=== PATIENT | female | born 1960 | race Caucasian/White ===

== ENCOUNTER → 2022-05-24 11:39 | Outpatient (CLI) | payer MEDICAID, SELFPAY ==
[2022-05-24 12:46] LABS: Basophils # 0.1 K/mm3 (0-0.2); Basophils % 1.2 % (0.1-2.0); Eosinophils # 0.2 K/mm3 (0.0-0.4); Eosinophils % 4.2 % (0.1-12.0); Hematocrit 48.1 % (37.0-47.0); Hemoglobin 15.4 g/dL (12.2-16.2); Lymphocytes # 1.6 K/mm3 (0.7-4.5); Lymphocytes % 30.8 % (10-50); Mean Corpuscular Hemoglobin 29.9 pg (27.0-31.2); Mean Corpuscular Volume 93.5 fl (81-99); Mean Platelet Volume 8.4 fl (7.4-10.4); Monocytes # 0.3 K/mm3 (0.1-1.0); Monocytes % 5.5 % (1.7-9.3); Neutrophils # 3.1 K/mm3 (1.8-7.8); Neutrophils % 58.3 % (37.0-80.0); Platelet Count 279 K/mm3 (142-424); Red Blood Count 5.14 M/mm3 (4.20-5.40); Red Cell Distribution Width 12.9 % (11.5-17.5); White Blood Count 5.3 K/mm3 (4.8-10.8)
[2022-05-24 13:34] LABS: Alanine Aminotransferase 24 U/L (12-78); Albumin Level 4.3 g/dl (3.5-5.0); Albumin/Globulin Ratio 1.7 (1.1-1.8); Alkaline Phosphatase 105 U/L (38-126); Anion Gap 11.2 mEq/L (5-15); Aspartate Amino Transferase 32 U/L (14-36); Bilirubin,Total 0.9 mg/dl (0.2-1.3); Blood Urea Nitrogen 14 mg/dl (7-17); Calcium 8.9 mg/dl (8.4-10.2); Carbon Dioxide 29 mmol/L (22.0-30.0); Chloride 103 mmol/L (98-107); Chol/HDL Ratio 4.6 (1-3.5); Cholesterol 223 mg/dl (140-200); Estimated Glomerular Filt Rate 85 ml/min (>60); GFR (African American) 102 ML/MIN (>60); Globulin 2.6 g/dL (1.3-3.2); Glucose 98 mg/dl (74-100); HDL Cholesterol 49 mg/dl (40-60); Potassium 4.2 mmoL/L (3.5-5.1); Sodium 139 mmol/L (136-145); Total Protein,Serum 6.9 g/dl (6.3-8.2); Triglycerides 149 mg/dl (30-150); VLDL Cholesterol 30 mg/dL (0-40)
[2022-05-24 13:52] LABS: 25-OH Vitamin D, Total 17.6 ng/mL (30-100)
[2022-05-24 14:06] LABS: Thyroid Stimulating Hormone 2.23 uIU/mL (0.465-4.68)
== END ==
PROVIDERS: PCP Physician Assistant; Visit Provider Physician Assistant
DX: Z00.00 Encounter for general adult medical examination without abnormal findings (principal); E55.9 Vitamin D deficiency, unspecified; R07.89 Other chest pain; R06.09 Other forms of dyspnea; Z79.899 Other long term (current) drug therapy
CPT/HCPCS: 36415; 80053; 80061; 82306; 84443; 85025; 93225; 93226

== ENCOUNTER → 2022-06-06 09:39 | Outpatient (CLI) | payer MEDICAID, SELFPAY | PROVIDERS: PCP Physician Assistant; Visit Provider Nurse Practitioner Family | DX: R00.2 Palpitations (principal); I48.0 Paroxysmal atrial fibrillation; R06.83 Snoring | CPT/HCPCS: 93270 ==

== ENCOUNTER → 2022-06-13 09:24 | Outpatient (CLI) | payer MEDICAID, SELFPAY | PROVIDERS: PCP Physician Assistant; Visit Provider Physician Assistant | DX: G47.33 Obstructive sleep apnea (adult) (pediatric) (principal); R06.83 Snoring | CPT/HCPCS: G0399 ==

== ENCOUNTER → 2022-06-14 08:41 | Outpatient (CLI) | payer MEDICAID, SELFPAY | PROVIDERS: PCP Physician Assistant; Visit Provider Nurse Practitioner Family | DX: R06.00 Dyspnea, unspecified (principal); R07.89 Other chest pain | CPT/HCPCS: 93306 ==

== ENCOUNTER → 2022-06-20 10:39 | Outpatient (CLI) | payer MEDICAID, SELFPAY ==
--- NOTE | 2022-06-20 10:42 | XR_ITS ---
FINAL REPORT CLINICAL HISTORY: Shortness of breath and chest pain COMPARISON: None FINDINGS: Two views of the chest were obtained. The heart size and pulmonary vascularity are within normal limits. The mediastinum is normal. No acute pulmonary abnormality is identified. There is no pneumothorax. There is a moderate hiatal hernia. The bony thorax is intact. IMPRESSION: No acute cardiopulmonary process. Moderate hiatal hernia. Reviewed, Interpreted and Dictated by Jaswant Gomez III, MD Transcribed by Nancy Sunshine Authenticated and . [facility]
== END ==
PROVIDERS: PCP Physician Assistant; Visit Provider Physician Assistant
DX: R06.09 Other forms of dyspnea (principal); R07.89 Other chest pain; R00.2 Palpitations; I48.0 Paroxysmal atrial fibrillation; R53.83 Other fatigue; Z87.19 Personal history of other diseases of the digestive system
CPT/HCPCS: 71046

== ENCOUNTER → 2022-06-23 07:44 | Outpatient (CLI) | payer MEDICAID, SELFPAY ==
--- NOTE | 2022-06-23 07:45 | MR_ITS ---
PROCEDURE INFORMATION: Exam: MR Head Without Contrast Exam date and time: 06/23/2022 7:50 AM Age: 61 years old Clinical indication: Weakness, facial; Additional info: Facial droop TECHNIQUE: Imaging protocol: Magnetic resonance imaging of the head without contrast. COMPARISON: No relevant prior studies available. FINDINGS: Brain: There are just a few miniscule T2/FLAIR hyperintense white matter lesions which are nonspecific, but are often the sequela of chronic small vessel ischemic disease. No evidence of an acute infarct. Cerebral ventricles: Normal. No ventriculomegaly. Pituitary gland and sella: Mostly empty CSF filled sella. Bones/joints: Unremarkable. Paranasal sinuses: Normal as visualized. No acute sinusitis. Mastoid air cells: Normal as visualized. No mastoid effusion. Orbital cavities: Unremarkable. Soft tissues: Unremarkable. IMPRESSION: No evidence of an acute intracranial process. Otherwise, as above.
== END ==
PROVIDERS: PCP Physician Assistant; Visit Provider Physician Assistant
DX: R29.810 Facial weakness (principal)
CPT/HCPCS: 70551

== ENCOUNTER → 2022-07-25 06:31 | Outpatient (CLI) | payer MEDICAID, SELFPAY ==
--- NOTE | 2022-07-25 06:32 | NM_ITS ---
APPROVED REPORT Exam: Nuclear Stress Test Indication: chest pain..soa..palpitations..fatigue Patient Location: Outpatient Stress Tech: Vesta Diaz OR Tech:Thelma Tarango ARRShea RT(R)(N) Ht: 4 ft 10 in Wt: 193 lbs Bra Size: 40dd HR: 72 bpm BP: 120/81 mmHg BSA: 1.79 m2 TID: 0.96 BMI: 40.3 History: chest pain, dyspnea, palpitations, fatigue Procedure: Patient exercised on [place] protocol 5:40 minutes and sec, resting heart rate 72 bpm, resting blood pressure 120/81 mmHg, with exercise maximum heart rate achived was 133 bpm which is 85 % of the maximum predicted heart rate and blood pressure was 145/76 mmHg. Test was stopped due to soa. Patient denied any complaint of chest pain. Patient has average exercise capacity, achieved 7.0 METs of workload on treadmill, the blood pressure response to exercise was adequate. Cardiac Stress and Resting SPECT Images: Cardiac Stress and Resting SPECT images were obtained using technetium 99m Myoview 32.9 mCi stress and 10.67 mCi at rest. Resting and stress images demonstrate a medium-sized, moderate, predominantly reversible perfusion defect anteriorly from the mid-LV wall towards the apex. Gated images demonstrate normal LV global and regional systolic function. LVEF is calculated at 68%. Conclusion: Medium-sized, moderate, predominantly reversible perfusion defect anteriorly from the mid-LV wall towards the apex. Findings are consistent with reversible ischemia. Gated images demonstrate normal LV global and regional systolic function. LVEF is calculated at 68%. Electronically signed by : Radha Zamorano, 07/25/2022 17:21:21
--- NOTE | 2022-07-25 06:32 | CA_ITS ---
APPROVED REPORT Exam: Exercise Treadmill Technologist: Vesta Soto, Ht: 4 ft 10 in Wt: 194 lbs BSA: 1.80 m2 HR: 68 bpm BP: 123/81 mmHg Medical History Medications: XaRELTO,,,,, Toprol XL,,,,, Vitamin D2, D3,,,,, Stress Test Details Test: [place] HR Resting HR: 72 bpm Max Heart Rate (APMHR): 157 bpm Max HR Achieved: 133 bpm Target HR (85% APMHR): 133 bpm % of APMHR: 85 Recovery HR: 83 bpm BP Resting BP: 120.0/81.0 mmHg Max BP: 145.0/76.0 mmHg Recovery BP: 110.0/71.0 mmHg ECG Resting ECG: NSR, ST-T abns inferiorly & laterally Clinical Exercise duration: 05:40 min Highest Stage Achieved: II Exercise capacity: 7.0 METs Stress ECG Conclusion Walked 5:40 on [place] Protocol Max HR: 133 % of PM: 85% Max BP: 145/76 METs: 7.0 Test stopped due to: SOA, Fatigue Symptoms: No CP. Arrhythmias/Ectopy: Rate PAC (not captured) ST-T Changes: 0.[address] depression. Conclusion: Baseline ECG T-wave changes in the inferolateral leads. Average functional capacity for age and sex. Adequate BP response to exercise. At peak stress, there was a 0.5mm horizontal depression in inferolateral leads. Findings are non-diagnostic in the setting of baseline ECG abnormalities. Myoview images reported separately. Test Summary REST . . . . . . . Sitting REST . . . . . . . Standing REST 05:03 0.0 0.0 72 . 120/ 81 . . Stage 1 01:00 10.0 1.7 99 . . . . Stage 1 02:00 10.0 1.7 108 . . . . Stage 1 03:00 10.0 1.7 111 . . . . Stage 2 01:00 12.0 2.5 119 . . . . Stage 2 02:00 12.0 2.5 130 . . . . Stage 2 02:40 12.0 2.5 132 . . . Stop exercise at 05:40 RECOVERY 01:00 0.0 0.0 107 . . . . RECOVERY 02:00 0.0 0.0 88 . . . . RECOVERY 03:00 0.0 0.0 83 . 145/ 76 . . RECOVERY 04:00 0.0 0.0 85 . 115/ 71 . . RECOVERY 05:00 0.0 0.0 82 . 106/ 71 . . RECOVERY 06:00 0.0 0.0 80 . 110/ 71 . . RECOVERY 06:07 0.0 0.0 79 . 110/ 71 . . Electronically signed by : Radha Zamorano, 07/25/2022 17:11:11
== END ==
PROVIDERS: PCP Physician Assistant; Visit Provider Physician Assistant
DX: R06.09 Other forms of dyspnea (principal); R07.89 Other chest pain; R00.2 Palpitations; I48.0 Paroxysmal atrial fibrillation; R53.83 Other fatigue
CPT/HCPCS: 78452; 93017; A9502

== ENCOUNTER 2022-08-08 08:42 | Day surgery (SDC) | payer MEDICAID, SELFPAY ==
[2022-08-08] VITALS (11 sets, daily range): BP systolic 94–127; BP diastolic 55–87; PULSE 54–83; RESP 15–20; O2SAT 90–100; BMI 40.7
--- NOTE | 2022-08-08 07:15 | IR_ITS ---
APPROVED REPORT Patient Location: Outpatient PROCEDURES Left heart catheterization Left ventriculogram Selective coronary angiogram INDICATION Angina pectoris, Abnormal Myoview Informed consent was obtained prior to the procedure. COMPLICATIONS None Estimated Blood Loss: Less than 10 mls TECHNIQUE One percent lidocaine used to anesthetize the right anterior aspect of the wrist. The right radial artery was accessed via the Seldinger technique. A 6 Algerian sheath was placed in the right radial artery. 150 mg magnesium sulfate, 800 mcg of nitroglycerin, 1mg Lidocaine and 5000 U Heparin were given through the arterial sheath. The papa catheter was also used to perform left heart catheterization, left ventriculogram and selective coronary angiogram. At the end of the procedure the sheath was removed good hemostasis was achieved using Traclet band, patient was transferred to the postop holding area in stable condition. ANGIOGRAPHIC RESULTS The left main artery Normal The left anterior descending artery Normal The circumflex artery Normal The right coronary artery Dominant normal The SCHMIDT ventriculogram reveals Normal 65% The left ventricular end-diastolic pressure 10 mmHg IMPRESSION Normal coronary arteries Normal ejection fraction Normal LVEDP PLAN 1. Evaluation of noncardiac symptoms Electronically signed by : Jerson Toussaint MD 08/08/2022 10:53:33
[2022-08-08 09:14] LABS: Basophils % 0.6 % (0.1-2.0); Eosinophils # 0.3 K/mm3 (0.0-0.4); Eosinophils % 4.9 % (0.1-12.0); Hemoglobin 14.4 g/dL (12.2-16.2); Lymphocytes % 37.3 % (10-50); Mean Corpuscular HGB Conc 32.1 g/dL (31.8-35.4); Mean Corpuscular Hemoglobin 30.2 pg (27.0-31.2); Mean Corpuscular Volume 94.1 fl (81-99); Mean Platelet Volume 8.8 fl (7.4-10.4); Monocytes # 0.3 K/mm3 (0.1-1.0); Neutrophils # 2.7 K/mm3 (1.8-7.8); Neutrophils % 51.2 % (37.0-80.0); Platelet Count 239 K/mm3 (142-424); Red Blood Count 4.78 M/mm3 (4.20-5.40); White Blood Count 5.3 K/mm3 (4.8-10.8)
[2022-08-08 09:28] LABS: Anion Gap 9.7 mEq/L (5-15); Blood Urea Nitrogen 14 mg/dl (7-17); Calcium 8.6 mg/dl (8.4-10.2); Carbon Dioxide 30 mmol/L (22.0-30.0); Chloride 106 mmol/L (98-107); Creatinine Clearance Estimated 80 mL/min (50-200); Estimated Glomerular Filt Rate 85 ml/min (>60); GFR (African American) 102 ML/MIN (>60); Glucose 101 mg/dl (74-100); Potassium 3.7 mmoL/L (3.5-5.1); Sodium 142 mmol/L (136-145)
== END 2022-08-08 13:52 | disposition home or self-care (01) ==
PROVIDERS: PCP Physician Assistant; Visit Provider Internal Medicine
DX: I20.8 Other forms of angina pectoris (principal); Z87.891 Personal history of nicotine dependence; I48.0 Paroxysmal atrial fibrillation; R06.02 Shortness of breath
CPT/HCPCS: 80048; 85025; 93458; 99152; C1725; C1769; J1644; Q9967

== ENCOUNTER → 2022-08-20 10:59 | Outpatient (CLI) | payer MEDICAID, SELFPAY ==
--- NOTE | 2022-08-20 11:01 | CA_ITS ---
FINAL REPORT TECHNIQUE: Limited ultrasound imaging of the right wrist was obtained. CLINICAL HISTORY: PT HAD CATH WITH RT WRIST ACCESS ON 08/08/22. KNOT AND PAIN AT SITE RT WRIST FINDINGS: Radial artery is patent. There is no evidence of pseudoaneurysm, av fistula or thrombus. IMPRESSION: Unremarkable exam. Reviewed, Interpreted and Dictated by Jaswant Gomez III, MD Transcribed by Lizeth Lackey Authenticated and [facility]
== END ==
PROVIDERS: PCP Physician Assistant; Visit Provider Physician Assistant
DX: R06.09 Other forms of dyspnea (principal); I48.0 Paroxysmal atrial fibrillation; R00.2 Palpitations; R53.83 Other fatigue; R60.9 Edema, unspecified; Z87.19 Personal history of other diseases of the digestive system
CPT/HCPCS: 93931

== ENCOUNTER 2022-10-08 09:42 | Emergency (ER) | payer MEDICAID, SELFPAY ==
--- NOTE | 2022-10-08 09:53 | XR_ITS ---
FINAL REPORT CLINICAL HISTORY: fall FINDINGS: RIGHT WRIST Three views demonstrate no acute fracture or dislocation. The visualized joint spaces are normally aligned. The soft tissues are unremarkable. IMPRESSION: No acute bony abnormality. Reviewed, Interpreted and Dictated by Jaswant Gomez III, MD Transcribed by Alla Blanca Authenticated and [facility]
--- NOTE | 2022-10-08 09:54 | XR_ITS ---
FINAL REPORT CLINICAL HISTORY: buddy fell on her COMPARISON: None FINDINGS: Two views right clavicle: No evidence of acute fracture or dislocation is identified. There is mild acromioclavicular degenerative change present as well as moderate glenohumeral degenerative change. There are multiple subchondral cysts in the inferior glenoid. IMPRESSION: No acute bony abnormality identified. Mild to moderate degenerative change as described. Reviewed, Interpreted and Dictated by Jaswant Gomez III, MD Transcribed by Alla Blanca Authenticated and [facility]
[2022-10-08 09:55] VITALS: BP 149/87; PULSE 62; RESP 20; TEMP 36.8; O2SAT 99; BMI 41.8
--- NOTE | 2022-10-08 10:14 | EXP.UTC ---
Discharge Plan Disposition Patient Disposition: Home, Self-Care Condition: Good Prescriptions Prescriptions: New methocarbamol 500 mg tablet 500 mg PO BID PRN (Reason: muscle spasm) Qty: 12 0RF No Action metoprolol succinate [Toprol XL] 25 mg tablet extended release 24 hr 25 mg PO HS ergocalciferol (vitamin D2) 1,250 mcg (50,000 unit) capsule 1,250 mcg PO WEEKLY cholecalciferol (vitamin D3) 50 mcg (2,000 unit) capsule 50 mcg PO DAILY Xarelto 20 mg tablet 20 mg PO DAILY Rx Instructions: must administer with evening meal Referrals Follow up/Referrals: Karen Savage PA [Primary Care Provider] - See instructions Activity Restrictions/Add. Instructions Additional Instructions/Restrictions: *RICE, Rest the extremity, Ice 15-20 minutes 3-4 times daily, Compress- wear the donnie wrap as discussed as much as possible to help reduce swelling and pain, Elevate the extremity when at rest *Donnie wrap/Velcro wrist splint is for support and help control swelling, use it except in the shower. Be sure that is not to tight but not to loose either *Elevate when resting? *Ibuprofen 600-800mg every 6-8 hours as needed for pain an inflammation if you can take it if not then take Tylenol. Immediately follow up with your family doctor for new or worsening of symptoms, or no noticeable improvement over the next 3-5 days Clinical Impressions Clinical Impression: Contusion of right wrist Qualifiers: Encounter type: initial encounter Qualified Code(s): S60.211A - Contusion of right wrist, initial encounter Instructions Patient Instructions: How to Use a Sling, Contusion, DI for Contusion, DI for Muscle Spasm Discharge ED Provider: Pauline Santacruz [facility] General Stated complaint: AO7/, pain in Rt wrist/shoulder Mode of Arrival: Ambulatory Source of Information: Patient and Spouse Limitations: No Limitations Time Seen by Provider: 10/08/22 10:14 Description of Symptoms (Recalled from Triage Doc. by RN): PATIENT C/O RIGHT HAND/WRIST, SHOULDER AND NECK PAIN AFTER A BOOKCASE FELL ON HER WHILE SHE WAS CLEANING ON SATURDAY HEENT Symptoms (Recalled from RN notes): No Resp Symptoms (Recalled from RN notes): No Skin Symptoms (Recalled from RN notes): No MS Symptoms (Recalled from RN notes): Yes Functional Status (Recalled from RN notes): WNL History of Present Illness Provider Complaint: Patient states that she was helping a friend clean on Saturday and was bent over cleaning when a book shelf started to tip over and she threw up her right arm to protect her head States that it landed on her right arm States that since then she has been having muscle spasms in her right neck/shoulder area pain in her clavicle area and pain and bruising in her right wrist Denies LOC denies headache or personality changes Related Data Home Medications Medication Instructions Recorded Confirmed cholecalciferol (vitamin D3) 50 50 mcg PO DAILY Supplement 10/08/22 10/08/22 mcg (2,000 unit) capsule ergocalciferol (vitamin D2) 1,250 1,250 mcg PO WEEKLY Supplement 10/08/22 10/08/22 mcg (50,000 unit) capsule metoprolol succinate 25 mg 25 mg PO HS AFIB 10/08/22 10/08/22 tablet,extended release 24 hr (Toprol XL) rivaroxaban 20 mg tablet (Xarelto) 20 mg PO DAILY AFIB 10/08/22 10/08/22 Previous Rx's Medication Instructions Recorded methocarbamol 500 mg tablet 500 mg PO BID PRN muscle spasm #12 10/08/22 tabs Allergies Allergy/AdvReac Type Severity Reaction Status Date / Time No Known Allergies Allergy Verified 08/20/22 10:14 Worker's Comp Is this a Worker's Comp case?: [facility] Disclaimer: The information contained in this section may have been updated after the patient was seen, as this information can be updated by other users. Medical History Abnormal result of cardiovascular function study delivery delivered Hia
[2022-10-08 10:37] VITALS: BP 149/87; PULSE 62; RESP 20; TEMP 36.8; O2SAT 99
== END 2022-10-08 11:30 | disposition home or self-care (01) ==
PROVIDERS: Emergency Provider Nurse Practitioner; PCP Physician Assistant
DX: S60.211A Contusion of right wrist, initial encounter (principal); M25.511 Pain in right shoulder; W20.8XXA Other cause of strike by thrown, projected or falling object, initial encounter
CPT/HCPCS: 73000; 73110; 99204; 99212; G0463

== ENCOUNTER 2022-11-26 11:41 | Emergency (ER) | payer MEDICAID, SELFPAY ==
[2022-11-26] VITALS (11 sets, daily range): BP systolic 116–159; BP diastolic 73–101; PULSE 66–78; RESP 16–21; TEMP 36.6; O2SAT 94–97; BMI 40.7
--- NOTE | 2022-11-26 11:40 | ECG_ITS ---
APPROVED REPORT Exam: Resting ECG HR:80 bpm ECG Measurements Heart Rate 80 AXES NV 147 P 22 QRSd 94 QRS -22 QT 389 T 23 QTc 425 Conclusion SINUS RHYTHM BORDERLINE LEFT AXIS DEVIATION [QRS AXIS < -20] BORDERLINE ECG UNCONFIRMED REPORT Electronically signed by : Wander Valente MD 11/26/2022 20:15:15
--- NOTE | 2022-11-26 12:08 | XR_ITS ---
FINAL REPORT TECHNIQUE: Single view chest CLINICAL HISTORY: chest pain COMPARISON: 06/20/2022 FINDINGS: A single view of the chest was obtained. The heart and mediastinum are within normal limits. The lungs are clear. There is a moderate sized hiatal hernia. There is no pneumothorax. Osseous structures are unremarkable. IMPRESSION: No acute cardiopulmonary process. Reviewed, Interpreted and Dictated by Jeevan Mccullough MD Transcribed by Lizeth Lackey Authenticated and [facility]
--- NOTE | 2022-11-26 12:13 | HMH.EDGENADL ---
Discharge Plan Disposition Patient Disposition: Home, Self-Care Prescriptions Prescriptions: No Action metoprolol succinate [Toprol XL] 25 mg tablet extended release 24 hr 25 mg PO HS ergocalciferol (vitamin D2) 1,250 mcg (50,000 unit) capsule 1,250 mcg PO WEEKLY cholecalciferol (vitamin D3) 50 mcg (2,000 unit) capsule 50 mcg PO DAILY Xarelto 20 mg tablet 20 mg PO DAILY Rx Instructions: must administer with evening meal methocarbamol 500 mg tablet 500 mg PO BID PRN (Reason: muscle spasm) Qty: 12 0RF Referrals Follow up/Referrals: Karen Savage PA [Primary Care Provider] - See instructions Jerson Toussaint MD [Staff Physician] - See instructions Activity Restrictions/Add. Instructions Additional Instructions/Restrictions: At this time is felt you are safe to be discharged home. If new or worsening symptoms please do not hesitate to return the emergency department. Please follow-up with cardiology on an outpatient basis. Please apply your erythromycin ointment 0.5 cm strip in your eye 3 times a day for 5 days for your conjunctivitis. If symptoms persist follow-up with your family doctor for continued evaluation. Clinical Impressions Clinical Impression: Chest pain, Conjunctivitis Discharge ED Provider: Miah Gamboa General Adult HPI General Chief complaint: Chest Pain Stated complaint: chest pain Time Seen by Provider: 11/26/22 11:48 Mode of Arrival: Ambulatory Source of Information: Patient Limitations: No Limitations Description of Symptoms (Recalled from ER Triage Doc. by RN): Pt arrive to ed via private vehicle. States that she has had chest pain since last week intermittently. States that this am while driving to the ed she had 3 sharp pains in the left side of her chest that she describes as sharp and stabbing, compares it to being stabbed by a knitting needle . States that it was worse today than it was last week. Denies any nausea/vomiting or cp radiation. Does report that she was sick last week with a cough which she continues to have. History of Present Illness HPI narrative: Patient is a 62-year-old female with past medical history of obstructive sleep apnea, palpitations, paroxysmal atrial fibrillation on anticoagulation presents emergency department for evaluation of multiple complaints. Over the last week patient has had intermittent productive cough and shortness of breath. She has had 3 episodes of stabbing left-sided chest pain. She has also noticed redness in her eye over the last few days. attributes this to air leak from her CPAP machine which is blowing up into her eye at night. There has been some discharge from her left eye. No stated visual changes. No other acute complaints at this time. Related Data Home Medications Medication Instructions Recorded Confirmed cholecalciferol (vitamin D3) 50 50 mcg PO DAILY Supplement 10/08/22 11/01/22 mcg (2,000 unit) capsule ergocalciferol (vitamin D2) 1,250 1,250 mcg PO WEEKLY Supplement 10/08/22 11/01/22 mcg (50,000 unit) capsule metoprolol succinate 25 mg 25 mg PO HS AFIB 10/08/22 11/01/22 tablet,extended release 24 hr (Toprol XL) rivaroxaban 20 mg tablet (Xarelto) 20 mg PO DAILY AFIB 10/08/22 11/01/22 Previous Rx's Medication Instructions Recorded methocarbamol 500 mg tablet 500 mg PO BID PRN muscle spasm #12 10/08/22 tabs Allergies Allergy/AdvReac Type Severity Reaction Status Date / Time No Known Allergies Allergy Verified 11/01/22 08:43 [facility] Disclaimer: The information contained in this section may have been updated after the patient was seen, as this information can be updated by other users. Medical History Abnormal result of cardiovascular function study delivery delivered Hiatal hernia Family History Other Cancer Diabetes Hypert
[2022-11-26 12:14] LABS: Basophils % 0.5 % (0.1-2.0); Chloride 106 mmol/L (98-107); Eosinophils # 0.3 K/mm3 (0.0-0.4); Eosinophils % 4.9 % (0.1-12.0); Hematocrit 49.9 % (37.0-47.0); Hemoglobin 15.7 g/dL (12.2-16.2); Lymphocytes % 32.3 % (10-50); Mean Corpuscular HGB Conc 31.4 g/dL (31.8-35.4); Mean Corpuscular Hemoglobin 29.5 pg (27.0-31.2); Mean Corpuscular Volume 94.2 fl (81-99); Mean Platelet Volume 8.4 fl (7.4-10.4); Monocytes # 0.2 K/mm3 (0.1-1.0); Monocytes % 3.8 % (1.7-9.3); Neutrophils # 3.7 K/mm3 (1.8-7.8); Neutrophils % 58.4 % (37.0-80.0); Platelet Count 244 K/mm3 (142-424); Potassium 3.7 mmoL/L (3.5-5.1); Sodium 144 mmol/L (136-145); White Blood Count 6.3 K/mm3 (4.8-10.8)
[2022-11-26 12:17] LABS: Alanine Aminotransferase 32 U/L (12-78); Albumin Level 3.9 g/dl (3.5-5.0); Albumin/Globulin Ratio 1.3 (1.1-1.8); Alkaline Phosphatase 114 U/L (38-126); Anion Gap 12.7 mEq/L (5-15); Aspartate Amino Transferase 37 U/L (14-36); Bilirubin,Total 0.7 mg/dl (0.2-1.3); Blood Urea Nitrogen 16 mg/dl (7-17); Carbon Dioxide 29 mmol/L (22.0-30.0); Creatinine Clearance Estimated 79 mL/min (50-200); Estimated Glomerular Filt Rate 72 ml/min (>60); GFR (African American) 87 ML/MIN (>60); Globulin 3.1 g/dL (1.3-3.2)
[2022-11-26 12:18] LABS: Glucose 161 mg/dl (74-100)
[2022-11-26 12:45] LABS: Troponin I < 0.01 ng/ml (0.00-0.034)
--- NOTE | 2022-11-26 14:53 | PC.NURSE ---
Rounded on patient, pt given warm blanket for comfort. No needs at this time. Call wu within reach.
[2022-11-26 16:13] LABS: Troponin I < 0.01 ng/ml (0.00-0.034)
== END 2022-11-26 16:29 | disposition home or self-care (01) ==
PROVIDERS: Emergency Provider Emergency Medicine; PCP Physician Assistant
DX: R07.9 Chest pain, unspecified (principal); H10.9 Unspecified conjunctivitis; R06.02 Shortness of breath; G47.33 Obstructive sleep apnea (adult) (pediatric); I48.0 Paroxysmal atrial fibrillation
CPT/HCPCS: 36415; 71045; 80053; 84484; 85025; 93005; 99285

== ENCOUNTER → 2023-03-07 09:04 | Outpatient (CLI) | payer MEDICAID, SELFPAY ==
--- NOTE | 2023-03-07 09:05 | US_ITS ---
FINAL REPORT CLINICAL HISTORY: chest pain COMPARISON: None FINDINGS: Sonographic images of the right upper quadrant were obtained. The pancreas is partially obscured. There is fatty infiltration of the liver present. There is a small amount of sludge present in the gallbladder without evidence of gallstones. There is no evidence of biliary ductal dilatation.The common duct measures 2.5 mm. Limited images of the right kidney are unremarkable. IMPRESSION: Fatty infiltration of the liver. Small amount of sludge present in the gallbladder. Reviewed, Interpreted and Dictated by Jeevan Mccullough MD Transcribed by Alla Blanca Authenticated and [facility]
== END ==
LOC: RAD 09:05
PROVIDERS: PCP Physician Assistant; Visit Provider Nurse Practitioner Family
DX: I48.0 Paroxysmal atrial fibrillation (principal); R06.00 Dyspnea, unspecified; R07.89 Other chest pain; R53.83 Other fatigue; Z87.19 Personal history of other diseases of the digestive system
CPT/HCPCS: 76705

== ENCOUNTER 2023-03-27 09:41 | Outpatient (CLI) | payer MEDICAID, SELFPAY ==
[2023-03-27 13:27] LABS: Basophils % 0.7 % (0.1-2.0); Eosinophils # 0.3 K/mm3 (0.0-0.4); Eosinophils % 5.2 % (0.1-12.0); Hematocrit 47.7 % (37.0-47.0); Hemoglobin 15.8 g/dL (12.2-16.2); Lymphocytes # 2.1 K/mm3 (0.7-4.5); Mean Corpuscular HGB Conc 33.2 g/dL (31.8-35.4); Mean Corpuscular Hemoglobin 31.6 pg (27.0-31.2); Mean Corpuscular Volume 95.1 fl (81-99); Monocytes # 0.4 K/mm3 (0.1-1.0); Neutrophils % 52.1 % (37.0-80.0); Platelet Count 266 K/mm3 (142-424); Red Blood Count 5.02 M/mm3 (4.20-5.40); White Blood Count 5.8 K/mm3 (4.8-10.8)
[2023-03-27 13:55] LABS: Alanine Aminotransferase 29 U/L (12-78); Albumin/Globulin Ratio 1.4 (1.1-1.8); Alkaline Phosphatase 106 U/L (38-126); Anion Gap 10.1 mEq/L (5-15); Aspartate Amino Transferase 33 U/L (14-36); Bilirubin,Total 0.6 mg/dl (0.2-1.3); Blood Urea Nitrogen 16 mg/dl (7-17); Calcium 8.9 mg/dl (8.4-10.2); Carbon Dioxide 28 mmol/L (22.0-30.0); Chloride 106 mmol/L (98-107); Chol/HDL Ratio 4.8 (1-3.5); Cholesterol 217 mg/dl (140-200); Estimated Glomerular Filt Rate 72 ml/min (>60); GFR (African American) 87 ML/MIN (>60); Globulin 2.9 g/dL (1.3-3.2); Glucose 99 mg/dl (74-100); HDL Cholesterol 45 mg/dl (40-60); Potassium 4.1 mmoL/L (3.5-5.1); Sodium 140 mmol/L (136-145); Total Protein,Serum 6.9 g/dl (6.3-8.2); Triglycerides 167 mg/dl (30-150); VLDL Cholesterol 33 mg/dL (0-40)
[2023-03-27 14:06] LABS: Direct LDL Cholesterol 144.92 mg/dL (100-129)
[2023-03-27 14:50] LABS: 25-OH Vitamin D, Total 47.3 ng/mL (30-100)
[2023-03-27 17:06] LABS: Thyroid Stimulating Hormone 1.72 uIU/mL (0.465-4.68)
[2023-03-28 16:13] LABS: H. pylori Breath Test Negative (Negative)
== END 2023-03-27 23:59 ==
LOC: LAB 09:42
PROVIDERS: PCP Physician Assistant; Visit Provider Physician Assistant
DX: R10.13 Epigastric pain (principal); R14.0 Abdominal distension (gaseous); R14.2 Eructation; E66.01 Morbid (severe) obesity due to excess calories; Z68.41 Body mass index [BMI] 40.0-44.9, adult; Z79.899 Other long term (current) drug therapy
CPT/HCPCS: 80053; 80061; 82306; 83013; 84443; 85025

== ENCOUNTER 2023-04-11 09:51 | Outpatient (CLI) | payer MEDICAID, SELFPAY ==
--- NOTE | 2023-04-11 09:52 | NM_ITS ---
FINAL REPORT CLINICAL HISTORY: Gallbladder pain 10:55 am 8.13 mci tc choletec 11:55 am 1.8 mcg of cck injected into lt wrist no pain with cck COMPARISON: None FINDINGS: Sequential anterior projection images of the abdomen were obtained after the intravenous injection of 8.13 mCi technetium 99m Choletec. There is normal uptake of radiotracer by the liver. The bile ducts are visualized by 10 minutes. Gallbladder activity is seen by 20 minutes. Bowel activity is noted by 25 minutes. After 1 hour, 1.8 ?g of CCK was injected intravenously for calculation of gallbladder ejection fraction. The gallbladder ejection fraction is 95%, which is within normal limits. IMPRESSION: No evidence of cystic duct or bile duct obstruction. Normal gallbladder ejection fraction of 95%. Reviewed, Interpreted and Dictated by Nivia Hong MD Transcribed by Alla Blanca Authenticated and [facility]
[2023-04-11] MEDS: SINCALIDE 1.8 MCG in 0.9 % SODIUM CHLORIDE 50 ML 100 MCG IV (12:59)
[2023-04-11] MEDS: SODIUM CHLORIDE 0.9% 10ML SYR (RAD ONLY) 10 ML IV (13:00)
[2023-04-11] MEDS: ISOTOPE CHOLETECH;1 DOSE (UP TO 15 MCI) IV (13:00)
== END 2023-04-11 23:59 ==
LOC: RAD 09:52
PROVIDERS: PCP Physician Assistant; Visit Provider Physician Assistant
DX: K82.9 Disease of gallbladder, unspecified (principal)
CPT/HCPCS: 78227; A9537; J2805

== ENCOUNTER 2023-08-02 11:00 | Emergency (ER) | payer MEDICAID, SELFPAY ==
[2023-08-02 11:20] VITALS: BP 126/76; PULSE 79; RESP 20; TEMP 36.7; O2SAT 99; BMI 43.2
--- NOTE | 2023-08-02 11:32 | EXP.UTC ---
Discharge Plan Disposition Patient Disposition: Home, Self-Care Condition: Good Prescriptions Prescriptions: No Action cholecalciferol (vitamin D3) 50 mcg (2,000 unit) capsule 50 mcg PO DAILY Qty: 30 5RF metoprolol succinate [Toprol XL] 25 mg tablet extended release 24 hr 12.5 mg PO HS Qty: 90 3RF Eliquis 5 mg tablet 5 mg PO BID Qty: 60 3RF atorvastatin 10 mg tablet See Rx Instructions .ROUTE .COMPLEX Qty: 90 3RF Dose Instruction: TAKE 1 TABLET BY MOUTH EVERY NIGHT AT BEDTIME FOR CHOLESTEROL Rx Instructions: TAKE 1 TABLET BY MOUTH EVERY NIGHT AT BEDTIME FOR CHOLESTEROL Referrals Follow up/Referrals: Karen Savage PA [Primary Care Provider] - See instructions Activity Restrictions/Add. Instructions Additional Instructions/Restrictions: Use eye drops as prescribed Follow up with your Eye Doctor if no improvement or any worsening of symptoms GO straight to the Emergency Room if no improvement or any worsening of symptoms If you have any vision changes pressure in your eye, swelling or redness around your eye, or worsening of symptoms go to Emergency room Called your Pharmacy and you had a refill left on your eye drops and they are filling it for you Clinical Impressions Clinical Impression: Eye problems, Eye pain Instructions Patient Instructions: DI for Eye Pain, Anterior Uveitis Discharge ED Provider: Pauline Santacruz [facility] General Stated complaint: left eye pain, no accident Mode of Arrival: Ambulatory Source of Information: Patient Limitations: No Limitations Time Seen by Provider: 08/02/23 11:32 Description of Symptoms (Recalled from Triage Doc. by RN): PATIENT C/O REDNESS AND INTERMITTEN PAIN TO LEFT EYE AND PAIN TO PERIORBITAL AREA THAT STARTED SATURDAY EVENING. PATIENT DENIES ANY VISION CHANGES HEENT Symptoms (Recalled from RN notes): Yes Resp Symptoms (Recalled from RN notes): No Skin Symptoms (Recalled from RN notes): No MS Symptoms (Recalled from RN notes): No Functional Status (Recalled from RN notes): WNL History of Present Illness Provider Complaint: Patient states that she has seen her eye doctor before for the same thing back a few months ago States that she starts having tenderness and inflammation in her left eye and she has had prescription for steriod eye drops and they helped last time she had this flare up States it started a few days ago and she had a small amount of those drops left so used them and it has helped some but she is out and she tried to get into her Eye Doctor but they wasnt there today, so she came in here to see if she could get a prescription for the eye drops she needs to help Denies Vision changes or injury states that eye gets watery and feels inflammed and pain will come and go in it Related Data Previous Rx's Medication Instructions Recorded cholecalciferol (vitamin D3) 50 50 mcg PO DAILY #30 caps 02/19/23 mcg (2,000 unit) capsule atorvastatin 10 mg tablet See Rx Instructions .Route 05/22/23 .COMPLEX #90 tabs apixaban 5 mg tablet (Eliquis) 5 mg PO BID #60 tabs 07/04/23 metoprolol succinate 25 mg 12.5 mg (1/2 x 25 mg) PO HS AFIB 07/04/23 tablet,extended release 24 hr #90 tabs (Toprol XL) Allergies Allergy/AdvReac Type Severity Reaction Status Date / Time No Known Allergies Allergy Verified 07/04/23 11:03 Worker's Comp Is this a Worker's Comp case?: No [facility] Disclaimer: The information contained in this section may have been updated after the patient was seen, as this information can be updated by other users. Medical History Status post left heart catheterization (LHC) Abnormal result of cardiovascular function study delivery delivered Hiatal hernia Family History Other Cancer Diabetes Hypertension Stroke Social History Smoking Status: Never smoker alcohol intake: former substance use type: denies use current occupational status: retired Travel in the last 8 weeks: None household members: spouse housing: house marital status: ROS Obtained: Yes All systems reviewed & no additional complaints except as documented and Yes Systems reviewed as appropriate & no additional complaints except as documented Constitutional Constitutional: Reports system reviewed and no additional complaints, except as documented and Reports as per HPI Eyes Eyes: Reports system reviewed and no additional complaints, except as documented, Reports as per HPI, Denies blind spots, Denies blurry vision, Denies change in vision, Denies decreased night vision, Denies diplopia, Reports eye discharge, Reports irritation, Denies itchy eyes, Denies loss of peripheral vision, Denies loss of vision, Denies sensitivity to light, Reports eye pain (mild pain at times), Denies photophobia, Denies seeing flashes, Denies tunnel vision and Reports other (discomfort on and off ) ENT Ears, Nose, Mouth, and Throat: Reports system reviewed and no additional complaints, except as documented and Reports as per HPI Cardiovascular Cardiovascular: Reports system reviewed and no additional complaints, except as documented and Reports as per HPI Respiratory Respiratory: Reports system reviewed and no additional complaints, except as documented and Reports as per HPI Gastrointestinal Gastrointestingal: Reports system reviewed and no additional complaints, except as documented and as per HPI Neurologic Neurologic: Denies loss of vision Allergic/Immunologic Allergic/Immunologic: Denies itchy eyes Physical Exam General General appearance: alert and in no apparent distress Eye Eye exam: Present discharge (clear watery discharge noted) and other (mild redness noted); Absent conjunctival redness, periorbital swelling or periorbital tenderness ENT ENT exam: Present mucous membranes moist Respiratory Respiratory exam: Present normal lung sounds bilaterally; Absent respiratory distress or wheezes Cardiovascular Cardiovascular exam: Present regular rate, normal rhythm and normal heart sounds Neurological Exam Neurological exam: Present alert, oriented X3 and normal gait Medical Decision Making Andrew Inquiry Pt receiving controlled substance: No Andrew was queried for this patient: No Vital Signs: 08/02/23 11:20 Temperature 98.1 F Temperature Source Oral Pulse Rate [Right Brachial] 79 Respiratory Rate 20 Blood Pressure [Right Arm] 126/76 Blood Pressure Mean [Right Arm] 92 02 Sat by Pulse Oximetry 99 Oxygen Delivery Method Room Air
[2023-08-02 11:39] VITALS: BP 126/76; PULSE 79; RESP 20; TEMP 36.7; O2SAT 99
== END 2023-08-02 12:05 | disposition home or self-care (01) ==
PROVIDERS: Emergency Provider Nurse Practitioner; PCP Physician Assistant
DX: H57.12 Ocular pain, left eye (principal)
CPT/HCPCS: 99212; 99213; G0463

== ENCOUNTER 2024-01-09 09:46 | Emergency (ER) | payer MEDICAID, SELFPAY ==
[2024-01-09 10:06] VITALS: BP 127/73; PULSE 83; RESP 20; TEMP 36.6; O2SAT 100; BMI 43.6
--- NOTE | 2024-01-09 10:25 | ED_ITS ---
Discharge Plan Disposition Patient Disposition: Home, Self-Care Condition: Good Prescriptions Prescriptions: New prednisone 20 mg tablet 20 mg PO BID 5 Days Qty: 10 0RF benzonatate 100 mg capsule 100 mg PO TID PRN (Reason: cough) Qty: 30 0RF amoxicillin-pot clavulanate 875-125 mg Tablet 1 tab PO Q12H Qty: 20 0RF guaifenesin [Mucinex] 600 mg tablet extended release 12hr 1,200 mg PO BID PRN (Reason: cough) Qty: 20 0RF No Action metoprolol succinate [Toprol XL] 25 mg tablet extended release 24 hr 12.5 mg PO HS Qty: 90 3RF atorvastatin 10 mg tablet See Rx Instructions .ROUTE .COMPLEX Qty: 90 3RF Dose Instruction: TAKE 1 TABLET BY MOUTH EVERY NIGHT AT BEDTIME FOR CHOLESTEROL Rx Instructions: TAKE 1 TABLET BY MOUTH EVERY NIGHT AT BEDTIME FOR CHOLESTEROL Eliquis 5 mg tablet 5 mg PO BID Qty: 60 3RF cholecalciferol (vitamin D3) 50 mcg (2,000 unit) capsule 50 mcg PO DAILY Qty: 30 5RF Referrals Follow up/Referrals: Wander Sinclair MD [Primary Care Provider] - See instructions Activity Restrictions/Add. Instructions Additional Instructions/Restrictions: * Start antibiotic today. Be sure to complete entire prescription even if feeling better * Monitor temp. Tylenol every 4 hours as needed and / or ibuprofen every 6 hours as needed ( As long as your primary care physician has told you that it ok to take both. For fever/aches/pains ER if no less than 101 despite Tylenol or Motrin * Humidifier/vaporizer or hot steamy shower * Mucinex during the day for your cough and cough suppressant only at night. Be sure to drink lots of water. *Tessalon Perles will not cause drowsiness but use at bedtime to help stop cough so that you may get some rest. *Start steroid today. Helps with inflammation therefore, cough and wheezing. Follow directions on the package. Reviewed side effects. Patient reports taking them before. Follow up IMMEDIATELY for new or worsening of symptoms OR no noticeable improvement over the next 48-72 hours. 911 immediately for any life threatening symptoms such as chest pain or difficulty breathing Clinical Impressions Clinical Impression: Sinusitis, Bronchitis Instructions Patient Instructions: DI for Sinusitis, Acute Bronchitis Print Language Print Language: Hebrew Discharge ED Provider: Pauline Santacruz [facility] [place] HPI General Stated complaint: congestion, headache, fever, cough, SOA Mode of Arrival: Ambulatory Source of Information: Patient Time Seen by Provider: 01/09/24 10:25 Description of Symptoms (Recalled from Triage Doc. by RN): CHEST CONGESTION, RUNNY NOSE, SINUS PRESSURE, FEVER HEENT Symptoms (Recalled from RN notes): No Resp Symptoms (Recalled from RN notes): Yes Skin Symptoms (Recalled from RN notes): No MS Symptoms (Recalled from RN notes): No Functional Status (Recalled from RN notes): WNL History of Present Illness Provider Complaint: Patient states that with weather changes she usually gets sinusitis and bronchitis States last week she started with sinus pain and pressure and now feels like it has moved into her chest States that she has chest congestion, cough and getting wheezy at times like she does when she gets bronchitis Related Data Previous Rx's ?Medication ?Instructions ?Recorded atorvastatin 10 mg tablet See Rx Instructions .Route 05/22/23 .COMPLEX #90 tabs metoprolol succinate 25 mg 12.5 mg (1/2 x 25 mg) PO HS AFIB 07/04/23 tablet,extended release 24 hr #90 tabs (Toprol XL) apixaban 5 mg tablet (Eliquis) 5 mg PO BID #60 tabs 10/30/23 cholecalciferol (vitamin D3) 50 50 mcg PO DAILY #30 caps 12/05/23 mcg (2,000 unit) capsule amoxicillin 875 mg-potassium 1 tab PO Q12H #20 tabs 01/09/24 clavulanate 125 mg tablet benzonatate 100 mg capsule 100 mg PO TID PRN cough #30 caps 01/09/24 guaifenesin 600 mg tablet, 1,200 mg (2 x 600 mg) PO BID PRN 01/09/24 extended release 12 hr (Mucinex) cough #20 tabs prednisone 20 mg tablet 20 mg PO BID 5 days #10 tabs 01/09/24 Allergies Allergy/AdvReac Type Severity Reaction Status Date / Time No Known Allergies Allergy Verified 01/01/24 20:14 Worker's Comp Is this a Worker's Comp case?: No [facility] Disclaimer: The information contained in this section may have been updated after the patient was seen, as this information can be updated by other users. Medical History (Updated 01/09/24 @ 10:41 by Pauline Santacruz APRN) Status post left heart catheterization (LHC) Abnormal result of cardiovascular function study delivery delivered Hiatal hernia Surgical History (Updated 01/02/24 @ 09:25 by Karen Wong) History of section Family History Other Cancer Diabetes Hypertension Stroke Social History Smoking Status: Never smoker alcohol intake: former substance use type: denies use current occupational status: retired Travel in the last 8 weeks: None household members: spouse housing: house marital status: ROS Obtained: Yes All systems reviewed & no additional complaints except as documented and Yes Systems reviewed as appropriate & no additional complaints except as documented Constitutional Constitutional: Reports system reviewed and no additional complaints, except as documented, Reports as per HPI, Denies body ache, Denies chills, Denies fever(s) and Reports headache(s) ENT Ears, Nose, Mouth, and Throat: Reports system reviewed and no additional complaints, except as documented, Reports as per HPI, Reports headache(s), Reports sinus pain and Reports sinus pressure Cardiovascular Cardiovascular: Reports system reviewed and no additional complaints, except as documented and Reports as per HPI Respiratory Respiratory: Reports system reviewed and no additional complaints, except as documented and Reports as per HPI Gastrointestinal Gastrointestingal: Reports system reviewed and no additional complaints, except as documented and as per HPI Neurologic Neurologic: Reports headache(s) Physical Exam General General appearance: alert and in no apparent distress ENT ENT exam: Present mucous membranes moist Expanded ENT Exam Nose exam: Present sinus tenderness Throat exam: Present other (PND noted) Respiratory Respiratory exam: Present normal lung sounds bilaterally; Absent respiratory distress Cardiovascular Cardiovascular exam: Present regular rate, normal rhythm and normal heart sounds Abdominal Exam Abdominal exam: Present soft and normal bowel sounds; Absent distention or tenderness Neurological Exam Neurological exam: Present alert, oriented X3 and normal gait Medical Decision Making Medical Records Screening: Per USPSTF and CDC recommendations, given the prevalence of disease in our region, it is our hospital?s policy to screen for HIV and viral Hepatitis for all patients aged 18 and over and those with ongoing risk factors. Andrew Inquiry Pt receiving controlled substance: No Andrew was queried for this patient: No Vital Signs: 01/09/24 10:06 Temperature 97.9 F Temperature Source Oral Pulse Rate [Left Radial] 83 Respiratory Rate 20 Blood Pressure [Left Arm] 127/73 Blood Pressure Mean [Left Arm] 91 02 Sat by Pulse Oximetry 100
[2024-01-09 10:41] VITALS: BP 127/73; PULSE 83; RESP 20; TEMP 36.6
== END 2024-01-09 10:45 | disposition home or self-care (01) ==
PROVIDERS: Emergency Provider Nurse Practitioner; PCP Family Medicine
DX: J40 Bronchitis, not specified as acute or chronic (principal); J01.90 Acute sinusitis, unspecified; R05.9 Cough, unspecified; R50.9 Fever, unspecified; R51.9 Headache, unspecified
CPT/HCPCS: 99212; G0381

== ENCOUNTER 2024-02-04 10:30 | Outpatient (CLI) | payer MEDICAID, SELFPAY ==
[2024-02-04 18:39] LABS: Alanine Aminotransferase 36 U/L (12-78); Albumin Level 3.8 g/dl (3.5-5.0); Albumin/Globulin Ratio 1.7 (1.1-1.8); Alkaline Phosphatase 121 U/L (38-126); Anion Gap 10.2 mEq/L (5-15); Aspartate Amino Transferase 34 U/L (14-36); Bilirubin,Total 0.8 mg/dl (0.2-1.3); Blood Urea Nitrogen 14 mg/dl (7-17); Calcium 8.9 mg/dl (8.4-10.2); Carbon Dioxide 26 mmol/L (22.0-30.0); Chloride 109 mmol/L (98-107); Chol/HDL Ratio 2.9 (1-3.5); Cholesterol 147 mg/dl (140-200); Estimated Glomerular Filt Rate 84 ml/min (>60); GFR (African American) 102 ML/MIN (>60); Globulin 2.3 g/dL (1.3-3.2); Glucose 100 mg/dl (74-100); HDL Cholesterol 51 mg/dl (40-60); Potassium 4.2 mmoL/L (3.5-5.1); Sodium 141 mmol/L (136-145); Total Protein,Serum 6.1 g/dl (6.3-8.2); Triglycerides 121 mg/dl (30-150); VLDL Cholesterol 24 mg/dL (0-40)
[2024-02-04 18:51] LABS: Direct LDL Cholesterol 95.61 mg/dL (100-129)
== END 2024-02-04 23:59 | disposition home or self-care (01) ==
LOC: LAB.DROPOF 02-05 07:16
PROVIDERS: PCP Family Medicine; Visit Provider Family Medicine
DX: E78.5 Hyperlipidemia, unspecified (principal)
CPT/HCPCS: 80053; 80061

== ENCOUNTER 2024-02-12 12:02 | Outpatient (CLI) | payer MEDICARE, MEDICAID, SELFPAY ==
[2024-02-15 02:43] LABS: D001-IgE D pteronyssinus <0.10 kU/L (Class 0); D002-IgE D farinae <0.10 kU/L (Class 0); E001-IgE Cat Dander <0.10 kU/L (Class 0); E005-IgE Dog Dander <0.10 kU/L (Class 0); E072-IgE Mouse Urine <0.10 kU/L (Class 0); G002-IgE Bermuda Grass <0.10 kU/L (Class 0); G006-IgE Timothy Grass <0.10 kU/L (Class 0); I006-IgE Cockroach, German <0.10 kU/L (Class 0); Immunoglobulin E, Total 38 IU/mL (6-495); M001-IgE Penicillium chrysogen <0.10 kU/L (Class 0); M002-IgE Cladosporium herbarum <0.10 kU/L (Class 0); M003-IgE Aspergillus fumigatus <0.10 kU/L (Class 0); M006-IgE Alternaria alternata <0.10 kU/L (Class 0); T001-IgE Maple/Box Elder <0.10 kU/L (Class 0); T003-IgE Common Silver Birch <0.10 kU/L (Class 0); T006-IgE Cedar, Mountain <0.10 kU/L (Class 0); T007-IgE Oak, White <0.10 kU/L (Class 0); T008-IgE Elm, American <0.10 kU/L (Class 0); T010-IgE Walnut <0.10 kU/L (Class 0); T011-IgE Maple Leaf Sycamore <0.10 kU/L (Class 0); T014-IgE Cottonwood <0.10 kU/L (Class 0); T015-IgE Ash, White <0.10 kU/L (Class 0); T022-IgE Pecan, Hickory <0.10 kU/L (Class 0); T070-IgE White Mulberry <0.10 kU/L (Class 0); W001-IgE Ragweed, Short <0.10 kU/L (Class 0); W011-IgE Thistle, Russian <0.10 kU/L (Class 0); W014-IgE Pigweed, Common <0.10 kU/L (Class 0); W018-IgE Sheep Sorrel <0.10 kU/L (Class 0)
== END 2024-02-12 23:59 | disposition home or self-care (01) ==
LOC: LAB 12:04
PROVIDERS: PCP Family Medicine; Visit Provider Internal Medicine Pulmonary Disease
DX: J30.9 Allergic rhinitis, unspecified (principal)
CPT/HCPCS: 36415; 82785; 86003

== ENCOUNTER 2024-02-13 09:54 | Outpatient (CLI) | payer MEDICARE, MEDICAID, SELFPAY ==
--- NOTE | 2024-02-13 09:57 | XR_ITS ---
FINAL REPORT CLINICAL HISTORY: knee pain COMPARISON: None FINDINGS: Three views of the left knee reveal no evidence of fracture or dislocation. The bony alignment is normal. There are mild degenerative changes with medial compartment narrowing. There is no evidence of joint effusion. No localized soft tissue abnormality is seen. IMPRESSION: Degenerative changes without acute abnormality identified. Reviewed, Interpreted and Dictated by Jaswant Gomez III, MD Transcribed by Maria G Dawkins Authenticated and [facility]
--- NOTE | 2024-02-13 09:57 | XR_ITS ---
FINAL REPORT CLINICAL HISTORY: knee pain COMPARISON: None FINDINGS: Three views of the right knee reveal no evidence of fracture or dislocation. There is mild lateral subluxation of the tibia in relation to the distal femur. There are mild degenerative changes with medial compartment narrowing. There is no evidence of joint effusion. No localized soft tissue abnormality is identified. IMPRESSION: Degenerative changes without acute abnormality identified. Reviewed, Interpreted and Dictated by Jaswant Gomez III, MD Transcribed by Maria G Dawkins Authenticated and [facility]
== END 2024-02-13 23:59 | disposition home or self-care (01) ==
LOC: RAD 09:55
PROVIDERS: PCP Family Medicine; Visit Provider Physician Assistant
DX: M25.561 Pain in right knee (principal); M25.562 Pain in left knee
CPT/HCPCS: 73562

== ENCOUNTER 2024-02-20 09:31 | Outpatient (CLI) | payer MEDICARE, MEDICAID, SELFPAY ==
[2024-02-20 10:48] LABS: Free T4 (Free Thyroxine) 1.15 ng/dl (0.78-2.19)
[2024-02-20 11:02] LABS: Thyroid Stimulating Hormone 2.68 uIU/mL (0.465-4.68)
== END 2024-02-20 23:59 | disposition home or self-care (01) ==
LOC: LAB 09:32
PROVIDERS: PCP Family Medicine; Visit Provider Physician Assistant
DX: R00.2 Palpitations (principal)
CPT/HCPCS: 36415; 84439; 84443

== ENCOUNTER 2024-02-26 10:44 | Outpatient (CLI) | payer MEDICARE, MEDICAID, SELFPAY ==
--- NOTE | 2024-02-26 10:45 | MM_ITS ---
PROCEDURE INFORMATION: Exam: MG Bilateral Screening 3D Mammography Exam date and time: 02/26/2024 10:45 AM Age: 63 years old Clinical indication: Screening examination TECHNIQUE: Imaging protocol: Bilateral Screening tomosynthesis and 2D mammography including computer-aided detection (CAD) when performed. COMPARISON: No relevant prior studies available. FINDINGS: MAMMOGRAPHY: Breast composition: There are scattered areas of fibroglandular density. Mass: None. Architectural distortion: None. Calcifications: No suspicious calcifications. Asymmetric density: None. Skin thickening: None. Axillary adenopathy: coarsely calcified right axillary lymph nodes IMPRESSION: Clinical correlation is needed for coarsely calcified right axillary lymph nodes. Prior granulomatous infections, sarcoidosis, secondary to treatment of lymphoma or some of the possible etiologies for coarsely calcified lymph nodes.Annual bilateral mammographic screening is recommended unless otherwise clinically indicated. ASSESSMENT: BI-RADS Category 2: Benign.
== END 2024-02-26 23:59 | disposition home or self-care (01) ==
LOC: RAD 10:45
PROVIDERS: PCP Family Medicine; Visit Provider Family Medicine
DX: Z12.31 Encounter for screening mammogram for malignant neoplasm of breast (principal)
CPT/HCPCS: 77063; 77067

== ENCOUNTER 2024-03-19 07:06 | Outpatient (CLI) | payer MEDICARE, MEDICAID, SELFPAY ==
--- NOTE | 2024-03-19 07:08 | US_ITS ---
PROCEDURE: US TRANSVAGINAL CLINICAL INDICATION: postmenopausal bleeding COMPARISON: No exams were available for comparison FINDINGS: Transvaginal and transabdominal sonographic images of the pelvis were obtained. UTERUS: 6.4cm x 4.9 cmx 2.8 cm anteverted with a combined endometrial thickness of 3.7mm. There appears to be a polyp within the cervix that measures 5.5 mm x 2.6 mm x 5.0 mm. The polyp is surrounded by fluid. There is a nabothian cyst in the posterior cervix measuring 6.2 mm x 3.6 mm. LEFT OVARY: 1.8 cmx1.6 cmx1.3cm with a volume of 1.9ml. The left ovary appears atrophic. RIGHT OVARY: The right ovary could not be seen transvaginally or transabdominally. The left ovary is seen and appears normal. Doppler flow to the left ovary is seen. There is no fluid in the cul-de-sac. IMPRESSION: 1. Anteverted uterus normal in shape and size. The endometrium is thin measuring 3.7 mm. 2. Within the cervix is a suspected polyp measuring 5.5 mm. It is surrounded by fluid, possibly blood. 3. The left ovary is visualized and appears small and atrophic. The right ovary is not visualized transabdominally or transvaginally. 4. No fluid in the cul-de-sac. Dictated by: Anthony Byrnes MD 03/19/2024 10:10 Anthony Byrnes MD in OV 03/19/2024 10:10
== END 2024-03-19 23:59 | disposition home or self-care (01) ==
LOC: RAD 07:08
PROVIDERS: PCP Family Medicine; Visit Provider Obstetrics & Gynecology
DX: N95.0 Postmenopausal bleeding (principal)
CPT/HCPCS: 76830

== ENCOUNTER 2024-04-24 09:54 | Outpatient (CLI) | payer MEDICARE, MEDICAID, SELFPAY ==
--- NOTE | 2024-04-24 10:24 | ECG_ITS ---
APPROVED REPORT Exam: Resting ECG HR:64 bpm ECG Measurements Heart Rate 64 AXES MS 153 P 29 QRSd 81 QRS -18 QT 396 T 19 QTc 406 Conclusion SINUS RHYTHM LOW QRS VOLTAGE IN PRECORDIAL LEADS [QRS DEFLECTION < 1.0 mV IN CHEST LEADS] PATTERN CONSISTENT WITH PULMONARY DISEASE ABNORMAL ECG UNCONFIRMED REPORT Electronically signed by : Wander Valente MD 04/24/2024 15:48:38
[2024-04-24 10:38] LABS: Basophils # 0.1 K/mm3 (0-0.2); Basophils % 0.8 % (0.1-2.0); Eosinophils # 0.3 K/mm3 (0.0-0.4); Eosinophils % 4.2 % (0.1-12.0); Hematocrit 46.3 % (37.0-47.0); Hemoglobin 14.9 g/dL (12.2-16.2); Lymphocytes # 1.9 K/mm3 (0.7-4.5); Lymphocytes % 29.3 % (10-50); Mean Corpuscular HGB Conc 32.2 g/dL (31.8-35.4); Mean Corpuscular Hemoglobin 30.2 pg (27.0-31.2); Mean Corpuscular Volume 93.7 fl (81-99); Mean Platelet Volume 10.7 fl (7.4-10.4); Monocytes # 0.5 K/mm3 (0.1-1.0); Monocytes % 6.9 % (1.7-9.3); Neutrophils # 3.8 K/mm3 (1.8-7.8); Neutrophils % 58.5 % (37.0-80.0); Platelet Count 243 K/mm3 (142-424); Red Blood Count 4.94 M/mm3 (4.20-5.40); Red Cell Distribution Width 12.8 % (11.5-17.5); White Blood Count 6.5 K/mm3 (4.8-10.8)
[2024-04-24 10:50] LABS: Alanine Aminotransferase 33 U/L (12-78); Albumin Level 4.2 g/dl (3.5-5.0); Albumin/Globulin Ratio 1.6 (1.1-1.8); Alkaline Phosphatase 76 U/L (38-126); Anion Gap 17.3 mEq/L (5-15); Aspartate Amino Transferase 52 U/L (14-36); Blood Urea Nitrogen 16 mg/dl (7-17); Carbon Dioxide 26 mmol/L (22.0-30.0); Chloride 102 mmol/L (98-107); Estimated Glomerular Filt Rate 84 ml/min (>60); GFR (African American) 102 ML/MIN (>60); Globulin 2.7 g/dL (1.3-3.2); Glucose 94 mg/dl (74-100); Potassium 5.3 mmoL/L (3.5-5.1); Sodium 140 mmol/L (136-145); Total Protein,Serum 6.9 g/dl (6.3-8.2)
== END 2024-04-24 23:59 | disposition home or self-care (01) ==
LOC: PREOP 09:54
PROVIDERS: PCP Family Medicine; Visit Provider Obstetrics & Gynecology
DX: N95.0 Postmenopausal bleeding (principal); R94.31 Abnormal electrocardiogram [ECG] [EKG]
CPT/HCPCS: 80053; 85025; 93005

== ENCOUNTER 2024-08-06 11:08 | Outpatient (CLI) | payer MEDICARE, MEDICAID, SELFPAY ==
[2024-08-06 19:39] LABS: Alanine Aminotransferase 25 U/L (12-78); Albumin Level 3.6 g/dl (3.5-5.0); Albumin/Globulin Ratio 1.3 (1.1-1.8); Alkaline Phosphatase 91 U/L (38-126); Anion Gap 9.8 mEq/L (5-15); Aspartate Amino Transferase 49 U/L (14-36); Bilirubin,Total 1.2 mg/dl (0.2-1.3); Blood Urea Nitrogen 15 mg/dl (7-17); Calcium 8.9 mg/dl (8.4-10.2); Carbon Dioxide 25 mmol/L (22.0-30.0); Chloride 110 mmol/L (98-107); Chol/HDL Ratio 2.7 (1-3.5); Cholesterol 127 mg/dl (140-200); Estimated Glomerular Filt Rate 84 ml/min (>60); GFR (African American) 102 ML/MIN (>60); Globulin 2.7 g/dL (1.3-3.2); Glucose 88 mg/dl (74-100); HDL Cholesterol 47 mg/dl (40-60); Potassium 4.8 mmoL/L (3.5-5.1); Sodium 140 mmol/L (136-145); Total Protein,Serum 6.3 g/dl (6.3-8.2); Triglycerides 119 mg/dl (30-150); VLDL Cholesterol 24 mg/dL (0-40)
[2024-08-06 19:55] LABS: Direct LDL Cholesterol 82.13 mg/dL (100-129)
[2024-08-06 20:09] LABS: Thyroid Stimulating Hormone 1.27 uIU/mL (0.465-4.68)
== END 2024-08-06 23:59 | disposition home or self-care (01) ==
LOC: LAB.DROPOF 08-07 13:37
PROVIDERS: PCP Family Medicine; Visit Provider Family Medicine
DX: E66.9 Obesity, unspecified (principal); I48.0 Paroxysmal atrial fibrillation; E78.5 Hyperlipidemia, unspecified
CPT/HCPCS: 80053; 80061; 84443

== ENCOUNTER 2024-08-31 15:29 | Observation (INO) | payer MEDICARE, MEDICAID, SELFPAY ==
[2024-08-31] VITALS (21 sets, daily range): BP systolic 96–177; BP diastolic 59–138; PULSE 55–157; RESP 13–28; TEMP 36–37.1; O2SAT 90–100; BMI 44.7; BMI 45.3
--- OUTSIDE RECORDS SUMMARY | 2024-08-31 16:12 | XMS_ITS | Clinical Summary ---
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 Name Role Phone Unavailable Primary Care Provider Unavailabl e Social History Tobacco Use Types Packs/Day Years Used Date Smoking Tobacco: Never Assessed Comments Unknown Sex and Gender Information Value Date Recorded Sex Assigned at Not on file Legal Sex Female 8:46 PM EDT Gender Identity Not on file Sexual Orientation Not on file Plan of Treatment Health Maintenance Due Date Last Done Comments [facility]-Bone Density Scan 1958 [facility]-Depression Screening 1958 [facility]-Infant/Child/Adol SDOH Screenings 1958 [facility]- SDOH Screenings 1976 [facility]-Adult SDOH Screenings 1976 [facility]-DTaP,Tdap,and Td Vaccine s (1 - Tdap) 1977 [facility]-Pap Smear 10/09/1979 [facility]-Cervical Cancer Screening 1988 [facility]-HPV/Cotest 1988 CT Colonography 10/09/2003 Colonoscopy 10/09/2003 FIT-DNA 10/09/2003 FIT 10/09/2003 FOBT 10/09/2003 Sigmoidoscopy 10/09/2003 [facility]-Colorectal Cancer Screening 10/09/2003 [facility]-Pneumococcal Vaccine: 50 + Years (1 of 1 - PCV) 2008 [facility]-Zoster Vaccines (1 of 2) 2008 [id number] Vaccine (1 - 20 24-25 season) 2023 [facility]-Influenza Vaccine (Seas[place] n Ended) 2024 [facility]-RSV Vaccine: 60+ Years o r (1 - 1-dose 75+ series) 2033 HPV Vaccines Aged Out No longer eligi ble based on patient's age to complete this topic [facility]-HIB Vaccines Aged Out No longer e ligible based on patient's age to complete this topic [facility]-Hepatitis A Vaccines Aged Out No longer eligible based on patient's age to complete this topic [facility]-IPV Vaccines Aged Out No longer e ligible based on patient's age to complete this topic [facility]-Rotavirus Vaccines Aged Out No lo nger eligible based on patient's age to complete this topic Insurance [employer]
--- NOTE | 2024-08-31 16:15 | CA_ITS ---
FINAL REPORT CLINICAL HISTORY: BILATERAL FEET SWELLING,PT ON ELIQUIS FINDINGS: Multiple transverse and longitudinal scans were performed of the femoral popliteal deep venous system, with augmentation and compression maneuvers. Normal phasic flow was noted in the visualized deep venous system. No intraluminal increased echogenicity is noted to suggest thrombus. There is normal compression and augmentation of the venous structures. No abnormal venous collaterals are seen. A small left Garcia's cyst is noted. IMPRESSION: No evidence of deep venous thrombosis of the bilateral lower extremities. Reviewed, Interpreted and Dictated by Nivia Hong MD Transcribed by Lizeth Lackey Authenticated and [facility]
--- NOTE | 2024-08-31 16:28 | ECG_ITS ---
APPROVED REPORT Exam: Resting ECG HR:154 bpm ECG Measurements Heart Rate 154 AXES QRSd 78 QRS -35 QT 271 T 44 QTc 358 Conclusion ATRIAL FIBRILLATION WITH RAPID VENTRICULAR RESPONSE LEFT AXIS DEVIATION [QRS AXIS < -30] PATTERN CONSISTENT WITH PULMONARY DISEASE MINIMAL VOLTAGE CRITERIA FOR LVH, CONSIDER NORMAL VARIANT [MEETS CRITERIA IN ONE OF: R(aVL), S(V1), R(V5), R(V5/V6)+S(V1)] No STEMI Electronically signed by : ROBERT SANDOVAL, 08/31/2024 21:20:45
[2024-08-31 16:29] LABS: Basophils # 0.1 K/mm3 (0-0.2); Basophils % 0.6 % (0.1-2.0); Eosinophils # 0.2 Kmm3 (0.0-0.4); Eosinophils % 2.6 % (0.1-12.0); Hematocrit 43.8 % (37.0-47.0); Hemoglobin 14.6 g/dL (12.2-16.2); Immature Granulocytes # 0.02 10^3uL; Immature Granulocytes % 0.2 %; Lymphocytes # 1.8 K/mm3 (0.7-4.5); Lymphocytes % 22.4 % (10-50); Mean Corpuscular HGB Conc 33.3 g/dL (31.8-35.4); Mean Corpuscular Hemoglobin 30.9 pg (27.0-31.2); Mean Corpuscular Volume 92.8 fl (81-99); Mean Platelet Volume 10.9 fl (7.4-10.4); Monocytes # 0.7 K/mm3 (0.1-1.0); Monocytes % 9.2 % (1.7-9.3); Neutrophils # 5.3 K/mm3 (1.8-7.8); Nucleated Red Blood Cells # 0 10^3/uL; Nucleated Red Blood Cells % 0 %; Platelet Count 242 K/mm3 (142-424); Red Blood Count 4.72 M/mm3 (4.20-5.40); Red Cell Distribution Width 12.9 % (11.5-17.5); Red Cell Distribution Width-SD 43.8 fL; White Blood Count 8.1 K/mm3 (4.8-10.8)
--- NOTE | 2024-08-31 16:36 | XR_ITS ---
PROCEDURE INFORMATION: Exam: XR Chest Exam date and time: 08/31/2024 4:53 PM Age: 63 years old Clinical indication: Shortness of breath; Additional info: SOA, new onset afib rvr TECHNIQUE: Imaging protocol: Radiologic exam of the chest. Views: 1 view. COMPARISON: CR XR CHEST PORTABLE 11/26/2022 12:37 PM FINDINGS: Airway: Airways are patent. Lungs: Low lung volumes causes crowding of the bronchovascular structures. No consolidations. Pleural spaces: No pleural effusions or pneumothorax. Heart/Mediastinum: No cardiomegaly. Large hiatal hernia. Bones/joints: No acute skeletal abnormality or aggressive osseous lesion. Soft tissues: No acute soft tissue findings. IMPRESSION: No acute findings.
[2024-08-31 16:41] LABS: Alanine Aminotransferase 26 U/L (12-78); Albumin Level 3.7 g/dl (3.5-5.0); Albumin/Globulin Ratio 1.3 (1.1-1.8); Alkaline Phosphatase 87 U/L (38-126); Anion Gap 4.1 mEq/L (5-15); Aspartate Amino Transferase 31 U/L (14-36); Bilirubin,Total 0.8 mg/dl (0.2-1.3); Blood Urea Nitrogen 15 mg/dl (7-17); Calcium 9.4 mg/dl (8.4-10.2); Carbon Dioxide 27 mmol/L (22.0-30.0); Chloride 112 mmol/L (98-107); Creatinine Clearance Estimated 36 mL/min (50-200); Estimated Glomerular Filt Rate 72 ml/min (>60); GFR (African American) 87 ML/MIN (>60); Globulin 2.8 g/dL (1.3-3.2); Glucose 99 mg/dl (74-100); Potassium 4.1 mmoL/L (3.5-5.1); Sodium 139 mmol/L (136-145); Total Protein,Serum 6.5 g/dl (6.3-8.2)
[2024-08-31 16:45] LABS: D-Dimer 0.46 ug/mL (0.0-0.5)
[2024-08-31 16:51] LABS: NT Pro Brain Natriuretic Pep. 649 pg/mL (0-125)
[2024-08-31 16:57] LABS: Troponin I < 0.01 ng/ml (0.00-0.034)
[2024-08-31 16:59] LABS: T4 (Thyroxine) 8.2 ug/dl (5.53-11.0)
[2024-08-31] MEDS: METOPROLOL TARTRATE 5MG/5ML VIAL 5 MG IV ×3 (16:59→17:16)
[2024-08-31] MEDS: METOPROLOL TARTRATE 50MG TABLET 50 MG PO (16:59)
[2024-08-31 17:00] LABS: Activated Partial Thrombo Time 25.5 seconds (22.8-30.6); INR 1.01 (0.9-1.1); Prothrombin Time 11.2 seconds (10.1-12.5)
[2024-08-31 17:13] LABS: Thyroid Stimulating Hormone 1.17 uIU/mL (0.465-4.68)
--- NOTE | 2024-08-31 17:13 | HMH.EDGENADL ---
Discharge Plan Disposition Patient Disposition: Admitted Condition: Good Clinical Impressions Clinical Impression: Atrial fibrillation with RVR, Pedal edema Discharge ED Provider: Krissy Gunderson General Adult HPI General Chief complaint: Extremity Injury, Lower Stated complaint: st by [place], swelled feet poss blood clot Time Seen by Provider: 08/31/24 16:10 Mode of Arrival: Ambulatory Source of Information: Patient Description of Symptoms (Recalled from ER Triage Doc. by RN): Pt reports bilateral lower extremity swelling and tingling to left foot. Pt denies any pain at this point. Pt reports PCP wanted her checked for clot. History of Present Illness HPI narrative: This patient is a 63-year-old female with a history of paroxysmal atrial fibrillation on metoprolol and Eliquis, hypertension, hyperlipidemia presenting to the emergency department for evaluation with concern for bilateral leg swelling, tingling to her left foot. Patient denies any falls or injuries. No pain noted, including no back pain or abdominal pain. She notes that her PCP sent her to rule out blood clot. She notes that the symptoms have been progressively worsening for the last few days. She does note cardiology recently increased her metoprolol in the setting of increased frequency of episodes of paroxysmal atrial fibrillation. She notes mild shortness of breath. She denies any chest pain, abdominal pain, vomiting, or other concerns. Related Data Previous Rx's ?Medication ?Instructions ?Recorded albuterol sulfate 90 mcg/actuation 2 inh inhalation Q6H PRN shortness 02/12/24 aerosol inhaler (Ventolin HFA) of breath or wheezing 90 days #18 grams apixaban 5 mg tablet (Eliquis) 5 mg PO BID #60 tabs 04/20/24 fluticasone propionate 50 2 spray intranasal DAILY 90 days 05/12/24 mcg/actuation nasal #16 grams spray,suspension (Flonase Allergy Relief) atorvastatin 10 mg tablet 10 mg PO DAILY #90 tabs 06/18/24 budesonide-formoterol HFA 160 2 inh inhalation BID 90 days #30.6 08/14/24 mcg-4.5 mcg/actuation aerosol grams inhaler (Breyna) metoprolol succinate 50 mg 50 mg PO DAILY #90 tabs 08/26/24 tablet,extended release 24 hr Allergies Allergy/AdvReac Type Severity Reaction Status Date / Time No Known Allergies Allergy Verified 08/26/24 09:28 [facility] Disclaimer: The information contained in this section may have been updated after the patient was seen, as this information can be updated by other users. Medical History Afib Endometrial polyp Pre-op evaluation Postmenopausal bleeding Positive colorectal cancer screening using Cologuard test Palpitations Dyspnea on exertion Allergic rhinitis Asthma Knee pain, bilateral Eye problems Screening for cervical cancer Screening for colon cancer Breast cancer screening by mammogram Hyperlipidemia Elevated blood pressure reading Fatigue Hx of hiatal hernia KIM (obstructive sleep apnea) Status post left heart catheterization (LHC) delivery delivered Hiatal hernia Surgical History History of section Family History Other Cancer Diabetes Hypertension Stroke Social History Smoking Status: Never smoker alcohol intake: never substance use type: denies use current occupational status: retired Travel in the last 8 weeks?: None household members: spouse housing: house marital status: Have you lived/traveled outside [place] in past 30 days?: No Contact w/someone who lives/traveled outside [place] past 30 days?: No Exposure to someone with infectious disease in past 14 days?: No Do you have a fever (greater than 100.4 F or 38 C)?: No Have you tested positive for COVID-19?: No Exposed to someone with COVID-19 in past 14 days?: No Do you have a sore throat?: No Do you have a cough?: No Do you have any weakness?: No Do you have any diarrhea?: No Are you experiencing any unusual bleeding?: No Do you have any muscle aches/pain?: No Do you have any abdominal pain?: No Are you experiencing loss of taste or smell?: No Other Medical History Have you received the Pneumonia Vaccine: Yes ROS Obtained: Yes All systems reviewed & no additional complaints except as documented Physical Exam General General appearance: alert and in no apparent distress Head Head exam: atraumatic and normocephalic Eye Eye exam: Present normal appearance, PERRL and EOMI ENT ENT exam: Present normal exam, normal oropharynx, mucous membranes moist and normal external ear exam Neck Neck exam: Present normal inspection, full ROM and trachea midline; Absent tenderness Chest Chest inspection: Present normal inspection and symmetric chest wall rise; Absent tenderness Respiratory Respiratory exam: Present normal lung sounds bilaterally; Absent respiratory distress, wheezes, stridor or accessory muscle use Cardiovascular Cardiovascular exam: Present tachycardia and irregular rhythm Abdominal Exam Abdominal exam: Present soft; Absent distention, tenderness or guarding Extremities Exam Extremities exam: Present full ROM, normal capillary refill, edema and other (Mild bilateral pedal edema, no calf pain, swelling, or redness.); Absent tenderness Back Exam Back exam: Present normal inspection and full ROM; Absent tenderness Neurological Exam Neurological exam: Present alert, oriented X3, CN II-XII intact and normal gait; Absent motor sensory deficit Psychiatric Psychiatric exam: Present normal affect and normal mood Skin Skin exam: Present warm and dry Medical Decision Making Medical Records Medical records reviewed: Yes I reviewed the patient's medical records. Screening: Per USPSTF and CDC recommendations, given the prevalence of disease in our region, it is our hospital?s policy to screen for HIV and viral Hepatitis for all patients aged 18 and over and those with ongoing risk factors. Andrew Inquiry Pt receiving controlled substance: No Vital Signs: 08/31/24 16:16 08/31/24 16:31 08/31/24 17:02 Temperature 96.8 F L Temperature Source Oral Pulse Rate 157 H 151 H Pulse Rate [Left] 55 L Respiratory Rate 16 20 18 Blood Pressure 134/90 99/68 L Blood Pressure [Right Arm] 128/90 Blood Pressure Mean 104 78 Blood Pressure Mean [Right Arm] 102 Blood Pressure Source Blood Pressure Source [Right Arm] Automatic Cuff Blood Pressure Position Blood Pressure Position [Right Arm] 02 Sat by Pulse Oximetry 96 97 97 Oxygen Delivery Method Room Air Oxygen Flow Rate (LPM) 08/31/24 17:09 08/31/24 17:37 08/31/24 17:37 Temperature 98.7 F Temperature Source Oral Pulse Rate 137 H 125 H 80 Pulse Rate [Left] Respiratory Rate 18 18 28 H Blood Pressure 97/70 L 120/89 120/89 Blood Pressure [Right Arm] Blood Pressure Mean 79 99 Blood Pressure Mean [Right Arm] Blood Pressure Source Automatic Cuff Blood Pressure Source [Right Arm] Blood Pressure Position Sitting Blood Pressure Position [Right Arm] 02 Sat by Pulse Oximetry 98 97 95 Oxygen Delivery Method Room Air Oxygen Flow Rate (LPM) 08/31/24 18:07 08/31/24 18:46 08/31/24 18:49 Temperature Temperature Source Pulse Rate 103 H 74 Pulse Rate [Left] Respiratory Rate 20 26 H 20 Blood Pressure 100/79 L 106/76 L 109/59 L Blood Pressure [Right Arm] Blood Pressure Mean 86 Blood Pressure Mean [Right Arm] Blood Pressure Source Blood Pressure Source [Right Arm] Blood Pressure Position Blood Pressure Position [Right Arm] 02 Sat by Pulse Oximetry 90 L 97 Oxygen Delivery Method Oxygen Flow Rate (LPM) 08/31/24 18:54 08/31/24 18:57 08/31/24 19:00 Temperature Temperature Source Pulse Rate 107 H 79 83 Pulse Rate [Left] Respiratory Rate 21 19 13 Blood Pressure 119/89 101/81 L 96/68 L Blood Pressure [Right Arm] Blood Pressure Mean Blood Pressure Mean [Right Arm] Blood Pressure Source Blood Pressure Source [Right Arm] Blood Pressure Position Blood Pressure Position [Right Arm] 02 Sat by Pulse Oximetry 94 L 96 96 Oxygen Delivery Method Oxygen Flow Rate (LPM) 08/31/24 19:07 08/31/24 20:15 08/31/24 20:26 Temperature 98 F 98.1 F Temperature Source Oral Oral Pulse Rate 91 H Pulse Rate [Left] 112 H 122 H Respiratory Rate 14 18 18 Blood Pressure 106/83 L Blood Pressure [Right Arm] 143/86 H 177/138 H Blood Pressure Mean Blood Pressure Mean [Right Arm] 105 151 Blood Pressure Source Blood Pressure Source [Right Arm] Automatic Cuff Automatic Cuff Blood Pressure Position Blood Pressure Position [Right Arm] Supine Supine 02 Sat by Pulse Oximetry 97 94 L 93 L Oxygen Delivery Method Ambu-Bag Room Air Oxygen Flow Rate (LPM) 15 08/31/24 20:37 08/31/24 20:41 08/31/24 21:18 Temperature 98 F 97.9 F Temperature Source Oral Oral Pulse Rate 62 Pulse Rate [Left] 124 H Respiratory Rate 18 18 Blood Pressure 133/113 H Blood Pressure [Right Arm] 153/123 H Blood Pressure Mean Blood Pressure Mean [Right Arm] 133 Blood Pressure Source Automatic Cuff Blood Pressure Source [Right Arm] Automatic Cuff Blood Pressure Position Sitting Blood Pressure Position [Right Arm] Supine 02 Sat by Pulse Oximetry 95 100 Oxygen Delivery Method Room Air Nasal Cannula Room Air Oxygen Flow Rate (LPM) 2 Lab Data Lab results reviewed: Yes I reviewed the patient's lab results. Lab Results 08/31/24 16:22: WBC 8.1, RBC 4.72, Hgb 14.6, Hct 43.8, MCV 92.8, MCH 30.9, MCHC 33.3, RDW 12.9, Plt Count 242, MPV 10.9 H, Neut % (Auto) 65.0, Lymph % (Auto) 22.4, Lar[place] % (Auto) 9.2, Eos % (Auto) 2.6, Baso % (Auto) 0.6, Neut # (Auto) 5.3, Lymph # (Auto) 1.8, Lar[place] # (Auto) 0.7, Eos # (Auto) 0.2, Baso # (Auto) 0.1, PT 11.2, INR 1.01, APTT 25.5, D-Dimer 0.46, Sodium 139, Potassium 4.1, Chloride 112 H, Carbon Dioxide 27, Anion Gap 4.1 L, BUN 15, Creatinine 0.80, Estimated Creat Clear 36, Estimated GFR 72, Est GFR ( Amer) 87, Glucose 99, Calcium 9.4, Magnesium 2.0, Total Bilirubin 0.8, AST 31, ALT 26, Alkaline Phosphatase 87, Troponin I < 0.01, NT-Pro-B Natriuret Pep 649 H, Total Protein 6.5, Albumin 3.7, Globulin 2.8, Albumin/Globulin Ratio 1.3, TSH 1.17, Thyroxine (T4) 8.2 08/31/24 18:20: Urine Color Yellow, Urine Appearance Clear, Urine pH 6.0, Ur Specific [place] <= 1.005, Urine Protein Negative, Urine Glucose (UA) Negative, Urine Ketones Negative, Urine Blood Negative, Urine Nitrate Negative, Urine Bilirubin Negative, Urine Urobilinogen 0.2, Ur Leukocyte Esterase Negative, Urine WBC Occasional, Ur Squamous Epith Cells 3-5, Urine Bacteria Trace 08/31/24 19:39: Troponin I 0.02 08/31/24 16:22 08/31/24 16:22 Orders (Tests/Meds): ED MEDICATIONS Generic Name Dose Route Start Last Admin Trade Name Freq PRN Reason Stop Dose Admin Acetaminophen 650 mg 08/31/24 21:07 Acetaminophen 325mg Tab PO 09/30/24 21:06 Q6HP PRN Fever or Mild Pain (1-3) Apixaban 5 mg 08/31/24 21:55 Apixaban 5mg Tablet PO 09/30/24 21:54 BID [facility] Atorvastatin Calcium 10 mg 08/31/24 21:10 Atorvastatin 10mg Tablet PO 09/30/24 21:09 HS [facility] Ipratropium Parmele 0.5 mg 08/31/24 21:07 Ipratropium Parmele 0.5 Mg/2.5ml Solution IH 09/30/24 21:06 QIDP PRN Shortness Of Breath Metoprolol Tartrate 5 mg 08/31/24 16:54 08/31/24 17:16 Metoprolol Tartrate 5mg/5ml Vial IV 09/30/24 16:59 5 mg Q5M PRN Administration heart rate Metoprolol Tartrate 50 mg 09/01/24 09:00 Metoprolol Tartrate 50mg Tablet PO 10/01/24 08:59 BID [facility] Discontinued Medications Generic Name Dose Route Start Last Admin Trade Name Freq PRN Reason Stop Dose Admin Apixaban 5 mg 09/01/24 09:00 Apixaban 5mg Tablet PO 10/01/24 08:59 BID [facility] Etomidate 10 mg 08/31/24 19:53 08/31/24 20:12 Etomidate 40mg/20ml Vial IV 08/31/24 19:54 10 mg ONCE ONE Administration Fentanyl Citrate 50 mcg 08/31/24 19:52 08/31/24 20:00 Fentanyl 100mcg/2ml Vial IV 08/31/24 19:53 50 mcg ONCE ONE Administration Ibutilide Fumarate 1 mg/ 60 mls @ 360 mls/hr 08/31/24 17:47 08/31/24 18:35 Sodium Chloride IV 08/31/24 17:48 360 mls/hr ONCE ONE Administration Magnesium Sulfate 2 gm in 50 mls @ 50 mls/hr 08/31/24 18:44 08/31/24 21:50 Magnesium Sulfate 2gm/50ml Premix IV 08/31/24 19:43 Not Given ONCE ONE Metoprolol Tartrate 50 mg 08/31/24 16:54 08/31/24 16:59 Metoprolol Tartrate 50mg Tablet PO 08/31/24 16:55 50 mg ONCE ONE Administration Ondansetron HCl 4 mg 08/31/24 19:53 08/31/24 20:00 Ondansetron 4mg/2ml Vial IV 08/31/24 19:54 4 mg ONCE ONE Administration ORDERS Category Date Time Status CXR --portable [XR chest portable] Stat Exams 08/31/24 16:36 Completed BNP [NT Pro Brain Natriuretic Pep.] Stat Lab 08/31/24 16:22 Completed Complete Blood Count Auto Diff Stat Lab 08/31/24 16:22 Completed Comprehensive Metabolic Panel Stat Lab 08/31/24 16:22 Completed D-Dimer Stat Lab 08/31/24 16:22 Completed Magnesium Stat Lab 08/31/24 16:22 Completed PT INR [Prothrombin Time INR] Stat Lab 08/31/24 16:22 Completed PTT [Activated Partial Thrombo Time] Stat Lab 08/31/24 16:22 Completed T4 (Thyroxine) Stat Lab 08/31/24 16:22 Completed TSH [Thyroid Stimulating Hormone] Stat Lab 08/31/24 16:22 Completed Trop I [Troponin I] Stat Lab 08/31/24 16:22 Completed Troponin I Q3H Lab 08/31/24 19:39 Completed Troponin I Q3H Lab 08/31/24 22:30 Ordered UA [Urinalysis and Microscopic] Stat Lab 08/31/24 18:20 Completed CA venous doppler LE BI Routine Y 08/31/24 16:15 Completed ECG Data Tracing #1: I reviewed this ECG and interpreted as documented below: Atrial fibrillation with rapid ventricular response with a ventricular rate of [address] changes concerning for STEMI. ECG initial impression date: 08/31/24 ECG initial impression time: 16:30 Tracing #2: I reviewed this ECG and interpreted as documented below: Atrial fibrillation with rapid ventricular response with a ventricular rate of [address] changes concerning for STEMI. No significant interval change from prior EKG. ECG initial impression date: 08/31/24 ECG initial impression time: 18:09 Tracing #3: I reviewed this ECG and interpreted as documented below: Precardioversion. Atrial fibrillation with rapid ventricular response with a ventricular rate of 125 bpm. No STEMI ECG initial impression date: 08/31/24 ECG initial impression time: 20:11 Tracing #4: I reviewed this ECG and interpreted as documented below: Post attempted electrical cardioversion. Atrial fibrillation with rapid ventricular response with a ventricular rate of 127 bpm. No acute STEMI. ECG initial impression date: 08/31/24 ECG initial impression time: 20:20 Medical Decision Narrative: In summary, this patient is a 63-year-old female presenting to the Emergency Department for evaluation of bilateral leg swelling, left greater than right and left foot. Differential diagnoses considered include but are not limited to osteoarthritis, peripheral neuropathy, peripheral vascular disease, DVT, electrolyte derangements, CHF. Ruling out the most morbid conditions drove assessment. It should be noted patient's history includes paroxysmal atrial fibrillation, hypertension, hyperlipidemia, and obesity which are not at goal therapy. This complicates all aspects of care by increasing patient's risk for morbidity. I reviewed patient's past medical records and noted previous cardiology evaluation with concern for increased frequency of A-fib, for which they increased her metoprolol. She reports compliance with her medications but presents in A-fib with RVR today. On exam, the patient is in A-fib with RVR. She is hemodynamically stable and is actually not experiencing any symptoms of palpitation or high heart rate. She has no increased work of breathing and has no current chest pain or shortness of breath. She does have mild bilateral pedal edema with subjective paresthesias in her left foot, but she is neurovascularly intact with good pulses, warm and well-perfused. She has no calf pain, redness, or swelling. Workup included CBC, CMP, TSH, T4, magnesium, BNP, troponin, coags, chest x-ray, EKG. She was given a bolus of IV fluids. Given that she is already anticoagulated in the setting of paroxysmal A-fib, I offered cardioversion for her current A-fib with RVR. She declined, stating she would rather try medications. She notes that cardiology told her to take extra metoprolol if she notices that she is in A-fib. Given this, I elected to administer 50 mg of oral metoprolol succinate and 5 mg IV every 5 minutes as needed x 3 doses. Bilateral lower extremity ultrasound was obtained that does not demonstrate DVT. She does have a left lower extremity Garcia's cyst. EKG #5: Sinus bradycardia at a ventricular to [address] changes concerning for STEMI. Normal intervals I independently interpreted chest x-ray and ultrasound prior to the radiologist read and noted no DVT but she does have a Garcia's cyst, no pulmonary edema or focal consolidation in the lungs. Please see their read for final interpretation. Labs were obtained that demonstrated reassuring CBC with no significant anemia or leukocytosis, reassuring chemistry with no significant electrolyte derangements, normal kidney function, negative troponin, only slightly elevated BNP. On multiple subsequent rechecks, the patient remained in A-fib with RVR despite metoprolol. Given this, I called and had an indirect discussion with Dr. Toussaint with cardiology who recommended IV ibutilide. This was administered over 15 minutes with no complications, however the patient did not convert to normal sinus rhythm. We gave her about 30 minutes with no improvement in her heart rate, so we elected to proceed with electrical cardioversion after thorough risk versus benefit explanation. Patient also consented to sedation for this procedure. She did have some issues with sleep apnea once she was sedated, and states that this is normal for her at home. We did assist her breathing with BVM assistance briefly during the sedation. Otherwise, no complications. We attempted cardioversion x 3 first with 120 J then with 200 J x 2, but the patient remained in A-fib with RVR. Approximately 10 to 15 minutes after leaving the room, she converted to sinus rhythm spontaneously. Given prolonged A-fib with RVR with difficulty cardioverting the patient as well as the fact that she lives an hour away and has complex social situation, I feel she would benefit from admission for close evaluation and cardiology evaluation as well. I had an interactive discussion with the hospitalist who admitted the patient in stable condition Procedures Risk/Benefits of Procedure(s) Were Explained: Yes Procedural Sedation Presedation Evaluation: Sitting upright no acute distress protecting her airway, reassuring cardiopulmonary exam with the exception of atrial fibrillation with RVR A heart and lung assessment was performed on this patient at: 20:00 Mallampati Score:: Class II Indication: other (Cardioversion) ASA Class: II Preparation: wet chemistry analyst applied, pulse oximeter, capnometry used, supplemental O2 applied and reversal agents at bedside Fentanyl: IV Fentanyl dose (mcg): 50 IV Etomidate dose (mg): 10 Patient Tolerated Procedure: well Complications: hypoventilation Interventions: airway repositioned and assist by BVM Miscellaneous Procedure Procedure Performed: Cardioversion: Informed consent was obtained. Patient was sedated with etomidate. Patient was placed on ZOLL with A-fib with RVR confirmed on cardiac monitoring. She was synchronized, and 120 J were administered initially for attempted cardioversion. This did not cardiovert the patient, so I then attempted 200 J x 2. We again did not have successful cardioversion initially, however she spontaneously converted shortly thereafter. No immediate complications Critical Care Critical Care Time Critical Care Time: Yes Attestation: On 08/31/24, the high probability of a clinically significant, sudden or life threatening deterioration of the following system(s) required my full and direct attention, intervention and personal management. The time I documented below is in addition to time spent performing reported procedures but includes the following listed in this critical care notation. Total Time Total Critical Care Time: 75
--- NOTE | 2024-08-31 18:07 | ECG_ITS ---
APPROVED REPORT Exam: Resting ECG HR:132 bpm ECG Measurements Heart Rate 132 AXES QRSd 78 QRS -30 QT 276 T 36 QTc 354 Conclusion ATRIAL FIBRILLATION WITH RAPID VENTRICULAR RESPONSE BORDERLINE LEFT AXIS DEVIATION [QRS AXIS < -20] No STEMI Electronically signed by : ROBERT SANDOVAL, 08/31/2024 21:18:46
[2024-08-31 18:25] LABS: Microscopic, Urine URINE MICROSCOPIC (MICROSCOPIC)
[2024-08-31 18:27] LABS: Appearance,Urine CLEAR (Clear); Bilirubin,Urine Negative (Negative); Blood, Urine Negative (Negative); Color,Urine YELLOW (Yellow); Glucose,Urine (UA) Negative (Negative); Ketones,Urine Negative (Negative); Leukocyte Esterase,Urine Negative (Negative); Nitrate,Urine Negative (Negative); Protein,Urine Negative (Negative); Specific Gravity, Urine <= 1.005 (1.005-1.030); Urobilinogen,Urine 0.2 EU/dl (0.2)
[2024-08-31] MEDS: SODIUM CHLORIDE 0.9% IV (18:35)
[2024-08-31] MEDS: [UNRECOGNIZED DRUG - OTHER] IV (18:35)
[2024-08-31 18:36] LABS: Bacteria,Urine Trace /lpf; WBC,Urine Occasional #/hpf (0-3)
[2024-08-31] MEDS: FENTANYL 100MCG/2ML VIAL 50 MCG IV (20:00)
[2024-08-31] MEDS: ONDANSETRON 4MG/2ML VIAL 4 MG IV (20:00)
--- NOTE | 2024-08-31 20:11 | ECG_ITS ---
APPROVED REPORT Exam: Resting ECG HR:125 bpm ECG Measurements Heart Rate 125 AXES QRSd 83 QRS -27 QT 318 T 23 QTc 392 Conclusion ATRIAL FIBRILLATION WITH RAPID VENTRICULAR RESPONSE BORDERLINE LEFT AXIS DEVIATION [QRS AXIS < -20] LOW QRS VOLTAGE IN PRECORDIAL LEADS [QRS DEFLECTION < 1.0 mV IN CHEST LEADS] No STEMI Electronically signed by : ROBERT SANDOVAL, 08/31/2024 21:17:47
[2024-08-31] MEDS: ETOMIDATE 40MG/20ML VIAL 10 MG IV (20:12)
--- NOTE | 2024-08-31 20:20 | ECG_ITS ---
APPROVED REPORT Exam: Resting ECG HR:127 bpm ECG Measurements Heart Rate 127 AXES QRSd 79 QRS -25 QT 312 T 52 QTc 387 Conclusion ATRIAL FIBRILLATION WITH RAPID VENTRICULAR RESPONSE BORDERLINE LEFT AXIS DEVIATION [QRS AXIS < -20] No STEMI Electronically signed by : ROBERT SANDOVAL, 08/31/2024 21:17:36
[2024-08-31 20:21] LABS: Troponin I 0.02 ng/ml (0.00-0.034)
--- NOTE | 2024-08-31 20:35 | ECG_ITS ---
APPROVED REPORT Exam: Resting ECG HR:57 bpm ECG Measurements Heart Rate 57 AXES WV 156 P 45 QRSd 83 QRS -20 QT 435 T 29 QTc 430 Conclusion SINUS BRADYCARDIA BORDERLINE ECG No STEMI Electronically signed by : ROBERT SANDOVAL, 08/31/2024 21:17:21
--- NOTE | 2024-08-31 20:55 | PC.NURSE ---
patient is sitting up in bed, alert and oriented x4, eating and drinking.
--- NOTE | 2024-08-31 21:15 | PC.NURSE ---
Report given to Kacy RN, in ICU
--- NOTE | 2024-08-31 21:49 | PC.NURSE ---
Pt arrived on unit at [address]
[2024-08-31] MEDS: APIXABAN 5MG TABLET 5 MG PO (22:11)
[2024-08-31] MEDS: ATORVASTATIN 10MG TABLET 10 MG PO (22:19)
--- NOTE | 2024-08-31 22:46 | P.HP_ITS ---
<Statement entered by Iron Stafford MD - 09/02/24 22:23> Evaluated by the patient and agree with plan of care as outlined by the BRAN MIXER. History of Present Illness *Admission Date: 08/31/24 *Reason for visit:: Lower extremity edema *History of present illness: This is a 63-year-old female with a past medical history of paroxysmal A-fib on metoprolol and Eliquis, KIM, hypertension, hyperlipidemia who presents emergency department today with complaints of lower extremity swelling. She reports over the last several days having increased swelling and mild shortness of breath. She attributes the mild shortness of breath to the heat. States she also had increased lower extremity edema. 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 Her PCP was concerned for possible DVT so sent her to the emergency department. On arrival to the emergency department she was noted to be in A-fib with RVR with heart rate in the 150s. She also had noted bilateral lower extremity edema. DVT ultrasounds negative. She received 3 doses of IV metoprolol and Corvert without improvement. Cardioversion x 3 was attempted with initial nonconversion but with reduction in heart rate. Given her continued A-fib with RVR it was felt she would benefit from admission. At the time of admission she did have conversion to sinus bradycardia. Dr. Toussaint was consulted and recommends continued monitoring overnight. He continue metoprolol tartrate twice daily and initiate amiodarone if recurrence of A-fib occurs. Laboratory evaluation notable for mildly elevated BNP of 649. Chest x-ray without abnormality. She is admitted to the hospital service at this time. [facility] Disclaimer: The information contained in this section may have been updated after the patient was seen, as this information can be updated by other users. Medical History Afib Endometrial polyp Pre-op evaluation Postmenopausal bleeding Positive colorectal cancer screening using Cologuard test Palpitations Dyspnea on exertion Allergic rhinitis Asthma Knee pain, bilateral Eye problems Screening for cervical cancer Screening for colon cancer Breast cancer screening by mammogram Hyperlipidemia Elevated blood pressure reading Fatigue Hx of hiatal hernia KIM (obstructive sleep apnea) Status post left heart catheterization (LHC) delivery delivered Hiatal hernia Surgical History History of section Family History Other Cancer Diabetes Hypertension Stroke Social History Smoking Status: Never smoker alcohol intake: never substance use type: denies use current occupational status: retired Travel in the last 8 weeks?: None household members: spouse housing: house marital status: Have you lived/traveled outside US in past 30 days?: No Contact w/someone who lives/traveled outside US past 30 days?: No Exposure to someone with infectious disease in past 14 days?: No Do you have a fever (greater than 100.4 F or 38 C)?: No Have you tested positive for COVID-19?: No Exposed to someone with COVID-19 in past 14 days?: No Do you have a sore throat?: No Do you have a cough?: No Do you have any weakness?: No Do you have any diarrhea?: No Are you experiencing any unusual bleeding?: No Do you have any muscle aches/pain?: No Do you have any abdominal pain?: No Are you experiencing loss of taste or smell?: No Other Medical History Have you received the Flu Vaccine for this season: No Have you received the Pneumonia Vaccine: Yes Review of Systems Review of Systems Review of systems:: pertinent systems reviewed and negative unless documented below Review of systems (narrative): Negative except for HPI Meds Home Medications and Allergies Home Medications ?Medication ?Instructions ?Recorded ?Confirmed ?Type albuterol sulfate 90 mcg/actuation 2 inh inhalation Q6 H PRN shortness 02/12/24 08/31/24 Rx aerosol inhaler (Ventolin HFA) of breath or wheezing 9 0 days #18 grams apixaban 5 mg tablet (Eliquis) 5 mg PO BID #60 tabs 08/31/24 Rx fluticasone propionate 50 2 spray intranasal DAILY 90 days 05/12/24 08/31/24 Rx mcg/actuation nasal #16 grams spray,suspension (Flonase Allergy Relief) atorvastatin 10 mg tablet 10 mg PO DAILY #90 tabs 04/08/31/24 Rx budesonide-formoterol HFA 160 2 inh inhalation BID 90 days #30.6 08/14/24 08/31/24 Rx mcg-4.5 mcg/actuation aerosol grams inhaler (Breyna) metoprolol succinate 50 mg 50 mg PO BID 08/31/2408/31 History tablet,extended release 24 hr New Prescriptions to Start Prescriptions: Allergies Allergy/AdvReac Type Severity Reaction Status Date / Time No Known Allergies Allergy Verified 08/26/24 09:28 Exam Data for Last 24 hours Vital signs and Labs for Last 24 Hours: Temp Pulse Resp BP Pulse Ox O2 Del Method O2 Flow Rate 98.3 F 69 18 105/66 L 97 Room Air 2 08/31/24 21:37 08/31/24 22:00 08/31/24 22:00 08/31/24 22:00 08/31/24 22:00 08/31/24 22:00 08/31/24 20:41 Laboratory Results - last 24 hr 08/31/24 16:22: WBC 8.1, RBC 4.72, Hgb 14.6, Hct 43.8, MCV 92.8, MCH 30.9, MCHC 33.3, RDW 12.9, Plt Count 242, MPV 10.9 H, Neut % (Auto) 65.0, Lymph % (Auto) 22.4, [place] % (Auto) 9.2, Eos % (Auto) 2.6, Baso % (Auto) 0.6, Neut # (Auto) 5.3, Lymph # (Auto) 1.8, [place] # (Auto) 0.7, Eos # (Auto) 0.2, Baso # (Auto) 0.1, PT 11.2, INR 1.01, APTT 25.5, D-Dimer 0.46, Sodium 139, Potassium 4.1, Chloride 112 H, Carbon Dioxide 27, Anion Gap 4.1 L, BUN 15, Creatinine 0.80, Estimated Creat Clear 36, Estimated GFR 72, Est GFR ( Amer) 87, Glucose 99, Calcium 9.4, Magnesium 2.0, Total Bilirubin 0.8, AST 31, ALT 26, Alkaline Phosphatase 87, Troponin I < 0.01, NT-Pro-B Natriuret Pep 649 H, Total Protein 6.5, Albumin 3.7, Globulin 2.8, Albumin/Globulin Ratio 1.3, TSH 1.17, Thyroxine (T4) 8.2 08/31/24 18:20: Urine Color Yellow, Urine Appearance Clear, Urine pH 6.0, Ur Specific [place] <= 1.005, Urine Protein Negative, Urine Glucose (UA) Negative, Urine Ketones Negative, Urine Blood Negative, Urine Nitrate Negative, Urine Bilirubin Negative, Urine Urobilinogen 0.2, Ur Leukocyte Esterase Negative, Urine WBC Occasional, Ur Squamous Epith Cells 3-5, Urine Bacteria Trace 08/31/24 19:39: Troponin I 0.02 I & O for Last 24 hours: Intake & Output 08/28/24 08/29/24 08/30/24 08/31/24 23:59 23:59 23:59 23:59 Output Total 1250 / 1250 Balance -1250 / -1250 Weight 98.566 kg Constitutional Constitutional: no acute distress *Routine HEENT Exam Head: Present normocephalic Eye: Present EOMI and PERRL ENT: Present mucous membranes moist *Routine Neck Exam Neck: Present supple; Absent lymphadenopathy *Routine Respiratory Exam Respiratory: Present CTA bilaterally *Routine Cardiovascular Exam Cardiovascular: Present bradycardia; Absent murmur or gallop *Routine Abdominal Exam Abdominal: Present soft and normoactive bowel sounds; Absent tenderness *Routine Rectal Exam Rectal:: deferred *Routine Genitalia Exam Genitalia:: deferred *Routine Extremities Exam Extremities: Absent cyanosis, clubbing or edema *Routine Skin Exam Skin: Present warm; Absent rash *Routine Neurological Exam Neurological: Present alert and oriented X3 Assessment and Plan *Assessment and plan (1) Atrial fibrillation with RVR: Status: Acute Category: Medical Code(s): I48.91 - Unspecified atrial fibrillation (2) Pedal edema: Status: Acute Category: Medical Code(s): R60.0 - Localized edema (3) BMI greater than 40: Status: Chronic Category: Medical (4) KIM (obstructive sleep apnea): Status: Acute Category: Medical Code(s): G47.33 - Obstructive sleep apnea (adult) (pediatric) Plan #Atrial fibrillation with RVR After metoprolol, Corvert and cardioversion x 3, patient has converted to sinus bradycardia. Will continue monitoring in stepdown for recurrence of A-fib with RVR. Cardiology consulted, appreciate recommendations Continue metoprolol tartrate twice daily Continue home Eliquis Monitor electrolytes and replace per protocol #Pedal edema #Elevated BNP Would likely benefit from repeat echocardiogram. Last echocardiogram in our system from 2022. Echocardiogram in a.m. Is not requiring oxygen at this time. Will defer Lasix therapy #Obesity Complicates all aspects of care
[2024-08-31 23:14] LABS: Troponin I < 0.01 ng/ml (0.00-0.034)
[2024-09-01] VITALS (8 sets, daily range): BP systolic 93–121; BP diastolic 51–74; PULSE 53–80; RESP 13–22; TEMP 36.4–36.7; O2SAT 93–98
[2024-09-01 05:26] LABS: Chloride 107 mmol/L (98-107); Sodium 139 mmol/L (136-145)
[2024-09-01 05:27] LABS: Potassium 4.1 mmoL/L (3.5-5.1)
[2024-09-01 05:30] LABS: Anion Gap 8.1 mEq/L (5-15); Blood Urea Nitrogen 14 mg/dl (7-17); Calcium 8.6 mg/dl (8.4-10.2); Carbon Dioxide 28 mmol/L (22.0-30.0); Creatinine Clearance Estimated 36 mL/min (50-200); Estimated Glomerular Filt Rate 72 ml/min (>60); GFR (African American) 87 ML/MIN (>60); Glucose 100 mg/dl (74-100); Magnesium 2.1 mg/dl (1.6-2.3)
[2024-09-01 05:39] LABS: Basophils % 0.6 % (0.1-2.0); Eosinophils # 0.2 Kmm3 (0.0-0.4); Eosinophils % 3.2 % (0.1-12.0); Hematocrit 40.1 % (37.0-47.0); Hemoglobin 13.2 g/dL (12.2-16.2); Immature Granulocytes # 0.02 10^3uL; Immature Granulocytes % 0.3 %; Lymphocytes # 2.2 K/mm3 (0.7-4.5); Lymphocytes % 33.5 % (10-50); Mean Corpuscular HGB Conc 32.9 g/dL (31.8-35.4); Mean Corpuscular Volume 94.1 fl (81-99); Mean Platelet Volume 11.1 fl (7.4-10.4); Monocytes # 0.5 K/mm3 (0.1-1.0); Monocytes % 7.9 % (1.7-9.3); Neutrophils # 3.5 K/mm3 (1.8-7.8); Neutrophils % 54.5 % (37.0-80.0); Nucleated Red Blood Cells # 0 10^3/uL; Nucleated Red Blood Cells % 0 %; Platelet Count 209 K/mm3 (142-424); Red Blood Count 4.26 M/mm3 (4.20-5.40); Red Cell Distribution Width-SD 45.1 fL; White Blood Count 6.5 K/mm3 (4.8-10.8)
--- NOTE | 2024-09-01 07:00 | CA_ITS ---
APPROVED REPORT EXAM: Comprehensive 2D, Doppler, and color-flow Echocardiogram Instrument Repairer: Yolie Sullivan, RCS, RVS Ht: 4 ft 10 in Wt: 217lbs BSA: 1.89 BP: 105/66 mmHg Rhythm: NSR Indications: s/p cardioversion-Afib, HTN, HLD 2D Dimensions IVSd 0.97 cm F: 0.6-1.0 LVEF (Visual) 60.60 % PWd 1.08 cm F: 0.6 - 1.0 LA Volume 29.50 mL LVDd 3.92 cm F: 3.9 - 5.3 LA Volume Index [id number] mL/m2 (M/F) 16-34 LVDs 2.67 cm F: 2.2 - 3.5 Left Atrium 3.01 cm F: 2.7 - 3.8 M-Mode Dimensions LA Diam 3.74 cm (1.9-4.0) LVDd 3.63 cm (3.5-5.7) LVDs 2.62 cm (3.5-5.7) EF (Teich) 54.80% EPSs 0.72 cm FS 27.80% EDV (Teich) 55.50 mL TAPSE 1.74 (<1.7) ESV (Teich) 25.10 mL LV Diastology E Decel Time 220 (160-240 msec) E/A Ratio 1.04 MED A' 9.40 cm/s LAT A' 8.10 cm/s Aortic Valve JAMILA Index 1.02 cm2/m2 AoV Peak Catr[place]. 137.0 (50-130 cm/s) AO Peak GR. 7.50 mmHg AO Mean GR. 3.50 (<5 mmHg) AO VTI 30.0 (18-25 cm) JAMILA (VTI) 1.96 (2.5-4.5 cm2) Mitral Valve MV A Velocity 90.0 (40-130 cm/s) E/A Ratio 1.04 Tricuspid Valve TR P. Velocity 253.00 cm/s RAP Estimate 10.00 mmHg RVSP 35.60 mmHg Left Ventricle The left ventricle is normal size. The left ventricular systolic function is normal. The left ventricular ejection fraction is within the normal range. There is increased LV wall thickness. There is normal LV segmental wall motion. Transmitral Doppler flow pattern suggests impaired LV relaxation. LVEF is 55%. Right Ventricle The right ventricle is normal size. The right ventricular systolic function is normal. Atria Left atrium is mildly dilated. Right atrium is mildly dilated. There is no Doppler evidence of interatrial shunt. Aortic Valve Aortic valve is mildly thickened. There is no aortic valvular stenosis. Trace aortic regurgitation. Mitral Valve The mitral valve is normal in structure. No evidence of mitral valve stenosis. Trace mitral regurgitation. Tricuspid Valve Tricuspid valve is grossly normal in structure and function. Mild tricuspid regurgitation. RVSP 20-25 mmHg. Pulmonic Valve The pulmonary valve is normal in structure. Trace pulmonic regurgitation. Great Vessels The aortic root is normal in size. IVC is normal in size and collapses >50% with inspiration. Pericardium There is no pericardial effusion. Other Information Study Quality: Fair Conclusion Normal biventricular systolic function. Biatrial dilation. Mild TR. Electronically signed by : Radha Zamorano MD 09/01/2024 10:26:09
--- NOTE | 2024-09-01 07:11 | HMH.PHAINT1 ---
Pharmacy Intervention Comments: MEDICATION RECONCILIATION COMPLETED ON PATIENT USING EXTERNAL FILL HISTORY FROM PHARMACY AND LIST FROM CARDIOLOGY/PULMONOLOGY OFFICES. -GERDA MEDINA, MIRELAD
[2024-09-01] MEDS: METOPROLOL TARTRATE 50MG TABLET 50 MG PO (08:03)
[2024-09-01] MEDS: APIXABAN 5MG TABLET 5 MG PO (08:05)
--- NOTE | 2024-09-01 09:05 | EXP.CARD.CON ---
History of Present Illness History of Present Illness Consult date: 09/01/24 Requesting physician: Iron Stafford Consult reason: atrial fibrillation Chief complaint: A. fib with RVR Additional Medical History:: 1. Paroxysmal atrial fibrillation A. On Eliquis therapy 2. Obesity with BMI greater than 40 3. Hyperlipidemia 4. History of normal coronary arteries by left heart catheterization, 2022 5. KIM with use of CPAP machine 6. History of asthma History of present illness: 63-year-old white female well-known to our practice presented to the emergency department yesterday for evaluation of possible DVT of the lower extremity at the assistance of her PCP. Patient has noticed an increase in lower extremity edema over the last couple of days with associated shortness of breath. Patient noted to be in A-fib with RVR in the ER that was recalcitrant to increase in beta-jessica therapy both oral and IV as well as IV ibutilide. Due to the patient's longstanding paroxysmal A-fib and chronic anticoagulation it was elected to proceed with cardioversion x 3 ultimately (initially 120 J then 2 shocks at 200 J) all unsuccessful. Approximately 15 to 20 minutes after the third shock patient did convert to sinus rhythm and has remained in sinus rhythm overnight. Her lower extremity edema has improved and she is feeling better. She normally feels like her heart is racing and can tell when she is in A-fib but did not have that warning this time. I had previously talked to her about referral to an EP physician for consideration of ablation therapy. She previously was reluctant but is now considering it. [facility] Disclaimer: The information contained in this section may have been updated after the patient was seen, as this information can be updated by other users. Medical History Afib Endometrial polyp Pre-op evaluation Postmenopausal bleeding Positive colorectal cancer screening using Cologuard test Palpitations Dyspnea on exertion Allergic rhinitis Asthma Knee pain, bilateral Eye problems Screening for cervical cancer Screening for colon cancer Breast cancer screening by mammogram Hyperlipidemia Elevated blood pressure reading Fatigue Hx of hiatal hernia KIM (obstructive sleep apnea) Status post left heart catheterization (LHC) delivery delivered Hiatal hernia Surgical History History of section Family History Other Cancer Diabetes Hypertension Stroke Social History Smoking Status: Never smoker alcohol intake: never substance use type: denies use current occupational status: retired Travel in the last 8 weeks?: None household members: spouse housing: house marital status: Have you lived/traveled outside US in past 30 days?: No Contact w/someone who lives/traveled outside US past 30 days?: No Exposure to someone with infectious disease in past 14 days?: No Do you have a fever (greater than 100.4 F or 38 C)?: No Have you tested positive for COVID-19?: No Exposed to someone with COVID-19 in past 14 days?: No Do you have a sore throat?: No Do you have a cough?: No Do you have any weakness?: No Do you have any diarrhea?: No Are you experiencing any unusual bleeding?: No Do you have any muscle aches/pain?: No Do you have any abdominal pain?: No Are you experiencing loss of taste or smell?: No Review of Systems Review of Systems Review of systems:: pertinent systems reviewed and negative unless documented below *Cardiovascular Cardiovascular: Reports dyspnea and Reports palpitations *Respiratory Respiratory: Reports dyspnea Endocrine Endocrine: Reports palpitations Exam Data for Last 24 hours Vital signs and Labs for Last 24 Hours: Temp Pulse Resp BP Pulse Ox O2 Del Method O2 Flow Rate 97.6 F 80 14 118/74 96 Nasal Cannula 2 09/01/24 08:00 09/01/24 09:01 09/01/24 09:01 09/01/24 09:01 09/01/24 09:01 09/01/24 09:01 09/01/24 09:01 Laboratory Results - last 24 hr 08/31/24 16:22: WBC 8.1, RBC 4.72, Hgb 14.6, Hct 43.8, MCV 92.8, MCH 30.9, MCHC 33.3, RDW 12.9, Plt Count 242, MPV 10.9 H, Neut % (Auto) 65.0, Lymph % (Auto) 22.4, [place] % (Auto) 9.2, Eos % (Auto) 2.6, Baso % (Auto) 0.6, Neut # (Auto) 5.3, Lymph # (Auto) 1.8, [place] # (Auto) 0.7, Eos # (Auto) 0.2, Baso # (Auto) 0.1, PT 11.2, INR 1.01, APTT 25.5, D-Dimer 0.46, Sodium 139, Potassium 4.1, Chloride 112 H, Carbon Dioxide 27, Anion Gap 4.1 L, BUN 15, Creatinine 0.80, Estimated Creat Clear 36, Estimated GFR 72, Est GFR ( Amer) 87, Glucose 99, Calcium 9.4, Magnesium 2.0, Total Bilirubin 0.8, AST 31, ALT 26, Alkaline Phosphatase 87, Troponin I < 0.01, NT-Pro-B Natriuret Pep 649 H, Total Protein 6.5, Albumin 3.7, Globulin 2.8, Albumin/Globulin Ratio 1.3, TSH 1.17, Thyroxine (T4) 8.2 08/31/24 18:20: Urine Color Yellow, Urine Appearance Clear, Urine pH 6.0, Ur Specific [place] <= 1.005, Urine Protein Negative, Urine Glucose (UA) Negative, Urine Ketones Negative, Urine Blood Negative, Urine Nitrate Negative, Urine Bilirubin Negative, Urine Urobilinogen 0.2, Ur Leukocyte Esterase Negative, Urine WBC Occasional, Ur Squamous Epith Cells 3-5, Urine Bacteria Trace 08/31/24 19:39: Troponin I 0.02 08/31/24 22:45: Troponin I < 0.01 09/01/24 04:59: WBC 6.5, RBC 4.26, Hgb 13.2, Hct 40.1, MCV 94.1, MCH 31.0, MCHC 32.9, RDW 13.0, Plt Count 209, MPV 11.1 H, Neut % (Auto) 54.5, Lymph % (Auto) 33.5, [place] % (Auto) 7.9, Eos % (Auto) 3.2, Baso % (Auto) 0.6, Neut # (Auto) 3.5, Lymph # (Auto) 2.2, [place] # (Auto) 0.5, Eos # (Auto) 0.2, Baso # (Auto) 0.0, Sodium 139, Potassium 4.1, Chloride 107, Carbon Dioxide 28, Anion Gap 8.1, BUN 14, Creatinine 0.80, Estimated Creat Clear 36, Estimated GFR 72, Est GFR ( Amer) 87, Glucose 100, Calcium 8.6, Magnesium 2.1 I & O for Last 24 hours: Intake & Output 08/29/24 08/30/24 08/31/24 09/01/24 11:59 11:59 11:59 11:59 Intake Total 600 / 600 Output Total 1950 / 1950 Balance -1350 / -1350 Weight 217 lb 4.8 oz Constitutional Constitutional: no acute distress *Routine Respiratory Exam Respiratory: Present CTA bilaterally; Absent rhonchi or wheezes *Routine Cardiovascular Exam Cardiovascular: Present RRR; Absent murmur, gallop or rubs *Routine Extremities Exam Extremities: Absent edema *Routine Neurological Exam Neurological: Present alert, oriented X3 and CN II-XII intact Meds Home Medications and Allergies Home Medications ?Medication ?Instructions ?Recorded ?Confirmed ?Type apixaban 5 mg tablet (Eliquis) 5 mg PO BID #60 tabs 04/20/24 08/31/24 Rx fluticasone propionate 50 2 spray intranasal DAILY 90 days 05/12/24 08/31/24 Rx mcg/actuation nasal #16 grams spray,suspension (Flonase Allergy Relief) atorvastatin 10 mg tablet 10 mg PO DAILY #90 tabs 06/18/24 08/31/24 Rx budesonide-formoterol HFA 160 2 inh inhalation BID 90 days #30.6 08/14/24 08/31/24 Rx mcg-4.5 mcg/actuation aerosol grams inhaler (Breyna) metoprolol succinate 50 mg 50 mg PO BID 08/31/24 08/31/24 History tablet,extended release 24 hr albuterol sulfate 90 mcg/actuation 2 inh inhalation Q6HP PRN 09/01/24 09/01/24 History aerosol inhaler (Ventolin HFA) shortness of breath or wheezing hydrocortisone 2.5 % topical cream 1 applic topical BID PRN skin 09/01/24 Rx irritation #28 grams New Prescriptions to Start Prescriptions: [place] Allergies Allergy/AdvReac Type Severity Reaction Status Date / Time No Known Allergies Allergy Verified 08/26/24 09:28 Assessment and Plan *Assessment and plan (1) Atrial fibrillation with RVR: Status: Acute Category: Medical Code(s): I48.91 - Unspecified atrial fibrillation (2) Pedal edema: Status: Acute Category: Medical Code(s): R60.0 - Localized edema (3) BMI greater than 40: Status: Chronic Category: Medical (4) Dyspnea: Status: Acute Qualifiers: Dyspnea type: dyspnea on exertion Qualified Code(s): R06.09 - Other forms of dyspnea Category: Medical Code(s): R06.00 - Dyspnea, unspecified Plan 1. Paroxysmal atrial fibrillation with RVR prompting admission 08/31/2024 Status post cardioversion x 3, initially unsuccessful, with delayed temple of sinus rhythm Patient on metoprolol succinate 50 mg twice daily Continue Eliquis 5 mg twice daily If patient has recurrent A-fib then we will start amiodarone therapy Begin process of outpatient referral to EP for consideration of ablation therapy Echocardiogram today is pending 2. Pedal edema resolved with temple of sinus rhythm 3. BMI greater than 40 4. KIM with CPAP use Echo shows preserved ejection fraction with no significant valve disease. Home medication recommendations: Metoprolol succinate 50 mg twice daily Eliquis 5 mg twice daily Atorvastatin 10 mg daily Follow-up in our office in 1 week or sooner if needed.
--- NOTE | 2024-09-01 10:19 | P.DS_ITS ---
<Statement entered by Iron Stafford MD - 09/02/24 22:22> Evaluated by the patient and agree with plan of care as outlined by the FIRE CODE INSPECTOR. Will follow-up closely with cardiology with plans to refer to EP for ablation. General Admission date:: 08/31/24 Discharge date: 09/01/24 HPI HPI HPI: This is a 63-year-old female with a past medical history of paroxysmal A-fib on metoprolol and Eliquis, KIM, hypertension, hyperlipidemia who presents emergency department today with complaints of lower extremity swelling. She reports over the last several days having increased swelling and mild shortness of breath. She attributes the mild shortness of breath to the heat. States she also had increased lower extremity edema. She decided to seek treatment with her BALANCE WEIGHER today given this lower extremity swelling. Her PCP was concerned for possible DVT so sent her to the emergency department. On arrival to the emergency department she was noted to be in A-fib with RVR with heart rate in the 150s. She also had noted bilateral lower extremity edema. DVT ultrasounds negative. She received 3 doses of IV metoprolol and Corvert without improvement. Cardioversion x 3 was attempted with initial nonconversion but with reduction in heart rate. Given her continued A-fib with RVR it was felt she would benefit from admission. At the time of admission she did have conversion to sinus bradycardia. Dr. Toussaint was consulted and recommends continued monitoring overnight. He continue metoprolol tartrate twice daily and initiate amiodarone if recurrence of A-fib occurs. Laboratory evaluation notable for mildly elevated BNP of 649. Chest x-ray without abnormality. She is admitted to the hospital service at this time. Hospital Course Hospital Course Hospital Course: Ms. Suazo is a 63-year-old female who came to the emergency department due to swelling, tingling, numbness in her bilateral lower extremities. She was found to be in A-fib, RVR with a rate in the 150s. Attempts were made to control her rhythm/rate with metoprolol IV and Corvert. Attempts were unsuccessful, patient cardioverted x 3 and successfully back to NSR. Patient also had a Doppler and was negative for DVT. Dr. Toussaint was consulted and recommended monitoring overnight; no episodes of A-fib overnight were noted, patient remained in normal sinus rhythm heart rate in the 60s throughout the evening. Patient is doing well day of discharge, no complaints of chest pain, shortness of breath, irregular heart rhythms, palpitations. Discussed close follow-up with outpatient cardiology, potentially cardiac ablation in the future. #Atrial fibrillation with RVR -Will continue metoprolol succinate 50 mg twice daily, Eliquis 5 mg twice daily. -Close cardiology follow-up. -Lab work unremarkable: Sodium 139, potassium 4.1, BUN 14, creatinine 0.80. -Echo shows LV EF 55%. No abnormalities noted. -Continue atorvastatin 10 mg daily. -Patient's vital signs have remained stable. #Pedal edema #Elevated BNP -Patient is not obviously volume overloaded. No edema in bilateral extremities. Patient denies neuropathy, nerve pain. #Obesity -Complicates all aspects of care #Dermatitis -Patient complains of red, itchy rash on chest, likely from the ZOLL pads. Hydrocortisone 2.5% topical twice daily as needed sent to pharmacy. Exam Data for Last 24 hours Vital signs and Labs for Last 24 Hours: Temp Pulse Resp BP Pulse Ox O2 Del Method O2 Flow Rate 98.0 F 62 14 118/74 98 Room Air 2 09/01/24 09:49 09/01/24 09:49 09/01/24 09:49 09/01/24 09:01 09/01/24 09:49 09/01/24 09:49 09/01/24 09:01 Laboratory Results - last 24 hr 08/31/24 16:22: WBC 8.1, RBC 4.72, Hgb 14.6, Hct 43.8, MCV 92.8, MCH 30.9, MCHC 33.3, RDW 12.9, Plt Count 242, MPV 10.9 H, Neut % (Auto) 65.0, Lymph % (Auto) 22.4, Gilmer % (Auto) 9.2, Eos % (Auto) 2.6, Baso % (Auto) 0.6, Neut # (Auto) 5.3, Lymph # (Auto) 1.8, Gilmer # (Auto) 0.7, Eos # (Auto) 0.2, Baso # (Auto) 0.1, PT 11.2, INR 1.01, APTT 25.5, D-Dimer 0.46, Sodium 139, Potassium 4.1, Chloride 112 H, Carbon Dioxide 27, Anion Gap 4.1 L, BUN 15, Creatinine 0.80, Estimated Creat Clear 36, Estimated GFR 72, Est GFR ( Amer) 87, Glucose 99, Calcium 9.4, Magnesium 2.0, Total Bilirubin 0.8, AST 31, ALT 26, Alkaline Phosphatase 87, Troponin I < 0.01, NT-Pro-B Natriuret Pep 649 H, Total Protein 6.5, Albumin 3.7, Globulin 2.8, Albumin/Globulin Ratio 1.3, TSH 1.17, Thyroxine (T4) 8.2 08/31/24 18:20: Urine Color Yellow, Urine Appearance Clear, Urine pH 6.0, Ur Specific Elmer <= 1.005, Urine Protein Negative, Urine Glucose (UA) Negative, Urine Ketones Negative, Urine Blood Negative, Urine Nitrate Negative, Urine Bilirubin Negative, Urine Urobilinogen 0.2, Ur Leukocyte Esterase Negative, Urine WBC Occasional, Ur Squamous Epith Cells 3-5, Urine Bacteria Trace 08/31/24 19:39: Troponin I 0.02 08/31/24 22:45: Troponin I < 0.01 09/01/24 04:59: WBC 6.5, RBC 4.26, Hgb 13.2, Hct 40.1, MCV 94.1, MCH 31.0, MCHC 32.9, RDW 13.0, Plt Count 209, MPV 11.1 H, Neut % (Auto) 54.5, Lymph % (Auto) 33.5, Gilmer % (Auto) 7.9, Eos % (Auto) 3.2, Baso % (Auto) 0.6, Neut # (Auto) 3.5, Lymph # (Auto) 2.2, Gilmer # (Auto) 0.5, Eos # (Auto) 0.2, Baso # (Auto) 0.0, Sodium 139, Potassium 4.1, Chloride 107, Carbon Dioxide 28, Anion Gap 8.1, BUN 14, Creatinine 0.80, Estimated Creat Clear 36, Estimated GFR 72, Est GFR ( Amer) 87, Glucose 100, Calcium 8.6, Magnesium 2.1 I & O for Last 24 hours: Intake & Output 08/29/24 08/30/24 08/31/24 09/01/24 23:59 23:59 23:59 23:59 Intake Total 600 / 600 Output Total 1250 / 1250 700 / 700 Balance -1250 / -1010 -100 / -100 Weight 98.566 kg *Routine HEENT Exam Head: Present normocephalic Eye: Present EOMI and PERRL ENT: Present mucous membranes moist *Routine Neck Exam Neck: Present supple and full ROM; Absent JVD Routine Chest/Breast/Axilla Exam Chest wall: Absent tenderness *Routine Respiratory Exam Respiratory: Present CTA bilaterally, able to speak in complete sentences and symmetric chest movement *Routine Cardiovascular Exam Cardiovascular: Present RRR; Absent murmur *Routine Abdominal Exam Abdominal: Present soft and normoactive bowel sounds; Absent tenderness or distended *Routine Skin Exam Skin: Present intact and rash (Rash on chest from ZOLL pads.) *Routine Neurological Exam Neurological: Present alert, oriented X3, vision grossly intact and hearing grossly intact Results Data Completed and Pending Labs on day of discharge: Labs from last 24 hours 09/01/24 08/31/24 08/31/24 04:59 22:45 19:39 WBC 6.5 RBC 4.26 Hgb 13.2 Hct 40.1 MCV 94.1 MCH 31.0 MCHC 32.9 RDW 13.0 Plt Count 209 MPV 11.1 H Neut % (Auto) 54.5 Lymph % (Auto) 33.5 Gilmer % (Auto) 7.9 Eos % (Auto) 3.2 Baso % (Auto) 0.6 Neut # (Auto) 3.5 Lymph # (Auto) 2.2 Gilmer # (Auto) 0.5 Eos # (Auto) 0.2 Baso # (Auto) 0.0 PT INR APTT D-Dimer Sodium 139 Potassium 4.1 Chloride 107 Carbon Dioxide 28 Anion Gap 8.1 BUN 14 Creatinine 0.80 Estimated Creat Clear 36 Estimated GFR 72 Est GFR ( Amer) 87 Glucose 100 Calcium 8.6 Magnesium 2.1 Total Bilirubin AST ALT Alkaline Phosphatase Troponin I < 0.01 0.02 NT-Pro-B Natriuret Pep Total Protein Albumin Globulin Albumin/Globulin Ratio TSH Thyroxine (T4) Urine Color Urine Appearance Urine pH Ur Specific Elmer Urine Protein Urine Glucose (UA) Urine Ketones Urine Blood Urine Nitrate Urine Bilirubin Urine Urobilinogen Ur Leukocyte Esterase Urine WBC Ur Squamous Epith Cells Urine Bacteria 08/31/24 08/31/24 18:20 16:22 WBC 8.1 RBC 4.72 Hgb 14.6 Hct 43.8 MCV 92.8 MCH 30.9 MCHC 33.3 RDW 12.9 Plt Count 242 MPV 10.9 H Neut % (Auto) 65.0 Lymph % (Auto) 22.4 Gilmer % (Auto) 9.2 Eos % (Auto) 2.6 Baso % (Auto) 0.6 Neut # (Auto) 5.3 Lymph # (Auto) 1.8 Gilmer # (Auto) 0.7 Eos # (Auto) 0.2 Baso # (Auto) 0.1 PT 11.2 INR 1.01 APTT 25.5 D-Dimer 0.46 Sodium 139 Potassium 4.1 Chloride 112 H Carbon Dioxide 27 Anion Gap 4.1 L BUN 15 Creatinine 0.80 Estimated Creat Clear 36 Estimated GFR 72 Est GFR ( Amer) 87 Glucose 99 Calcium 9.4 Magnesium 2.0 Total Bilirubin 0.8 AST 31 ALT 26 Alkaline Phosphatase 87 Troponin I < 0.01 NT-Pro-B Natriuret Pep 649 H Total Protein 6.5 Albumin 3.7 Globulin 2.8 Albumin/Globulin Ratio 1.3 TSH 1.17 Thyroxine (T4) 8.2 Urine Color Yellow Urine Appearance Clear Urine pH 6.0 Ur Specific Elmer <= 1.005 Urine Protein Negative Urine Glucose (UA) Negative Urine Ketones Negative Urine Blood Negative Urine Nitrate Negative Urine Bilirubin Negative Urine Urobilinogen 0.2 Ur Leukocyte Esterase Negative Urine WBC Occasional Ur Squamous Epith Cells 3-5 Urine Bacteria Trace DS: Diagnosis Discharge Diagnosis (1) Atrial fibrillation with RVR: Status: Acute Code(s): I48.91 - Unspecified atrial fibrillation (2) Pedal edema: Status: Acute Code(s): R60.0 - Localized edema (3) BMI greater than 40: Status: Chronic (4) Dyspnea: Status: Acute Code(s): R06.00 - Dyspnea, unspecified Qualifiers: Dyspnea type: dyspnea on exertion Qualified Code(s): R06.09 - Other forms of dyspnea (5) Dermatitis: Status: Acute Code(s): L30.9 - Dermatitis, unspecified Meds Home Medications and Allergies Home Medications ?Medication ?Instructions ?Recorded ?Confirmed ?Type apixaban 5 mg tablet (Eliquis) 5 mg PO BID #60 tabs 08/31/24 Rx fluticasone propionate 50 2 spray intranasal DAILY 90 days 05/12/24 08/31/24 Rx mcg/actuation nasal #16 grams spray,suspension (Flonase Allergy Relief) atorvastatin 10 mg tablet 10 mg PO DAILY #90 tabs 06/0908/31/24 Rx budesonide-formoterol HFA 160 2 inh inhalation BID 90 days #30.6 08/14/24 08/31/24 Rx mcg-4.5 mcg/actuation aerosol grams inhaler (Breyna) metoprolol succinate 50 mg 50 mg PO BID 08/31/2408/31 History tablet,extended release 24 hr albuterol sulfate 90 mcg/actuation 2 inh inhalation Q6 HP PRN 09/01/24 09/01/24 History aerosol inhaler (Ventolin HFA) shortness of breath or wheezing hydrocortisone 2.5 % topical cream 1 applic topical BI D PRN skin 09/01/24 Rx irritation #28 grams New Prescriptions to Start Prescriptions: hydrocortisone Mary Chau Allergies Allergy/AdvReac Type Severity Reaction Status Date / Time No Known Allergies Allergy Verified 08/26/24 09:28 Discharge Plan Disposition Patient Disposition: Home, Self-Care Condition: Good Follow up Plan Follow up with: Miki Chau PA [Physician Pharmacy Customer Care Specialist, Cardiology] - 09/15/24 11:15 am Referral Note: 1 week Wander Sinclair MD [Primary Care Provider, Family Practice] - 09/14/24 1:40 am Prescriptions/Medication Reconciliation: New hydrocortisone 2.5 % cream 1 applic topical BID PRN (Reason: skin irritation) Qty: 28 0RF Continued fluticasone propionate [Flonase Allergy Relief] 50 mcg/actuation spray,suspension 2 spray intranasal DAILY 90 Days Qty: 16 2RF Rx Instructions: administer into each nostril Eliquis 5 mg tablet 5 mg PO BID Qty: 60 3RF atorvastatin 10 mg tablet 10 mg PO DAILY Qty: 90 3RF budesonide-formoterol [Breyna] 160-4.5 mcg/actuation HFA aerosol inhaler 2 inh inhalation BID 90 Days Qty: 30.6 3RF metoprolol succinate 50 mg tablet extended release 24 hr 50 mg PO BID albuterol sulfate [Ventolin HFA] 90 mcg/actuation HFA aerosol inhaler 2 inh inhalation Q6HP PRN (Reason: shortness of breath or wheezing) Problem Reconciliation Problems Reviewed?: Yes Patient Discharge Instructions ACTIVITY: Continue current activity DIET: continue same diet Patient Instructions: Atrial Fibrillation Print Language: Tajik Providers Primary Care Provider: Wander Sinclair Admit Provider: Iron Stafford Attending Provider: Iron Stafford
--- NOTE | 2024-09-01 11:21 | PC.NURSE ---
pt leaving with at this time.
--- NOTE | 2024-09-02 09:55 | SW/DCPLANNER ---
Spoke with patient on the phone. Patient stated that she is doing good so far. Patient stated that she is aware of her upcoming appointments. Patient stated that she went to get her cream from [facility] and they did not have any and the pharmacist suggested that she uses over the counter. Patient denies any concerns or questions at this time. Bob CHEUNG Food Equipment Service Technician
== END 2024-09-01 11:21 | disposition home or self-care (01) ==
LOC: ER 17:00 → ICU 20:32
PROVIDERS: Nurse Practitioner Acute Care; Admitting Provider Student in an Organized Health Care Education/Training Program; Emergency Provider Emergency Medicine; PCP Family Medicine; Visit Provider Student in an Organized Health Care Education/Training Program
DX: I48.0 Paroxysmal atrial fibrillation (principal); R60.0 Localized edema; R06.09 Other forms of dyspnea; G47.33 Obstructive sleep apnea (adult) (pediatric); L30.9 Dermatitis, unspecified; E66.9 Obesity, unspecified; E78.5 Hyperlipidemia, unspecified; J45.909 Unspecified asthma, uncomplicated; R00.1 Bradycardia, unspecified; I10 Essential (primary) hypertension; Z68.42 Body mass index [BMI] 45.0-49.9, adult; Z79.01 Long term (current) use of anticoagulants; Z79.51 Long term (current) use of inhaled steroids; Z79.899 Other long term (current) drug therapy; Z80.8 Family history of malignant neoplasm of other organs or systems; Z82.3 Family history of stroke; Z82.49 Family history of ischemic heart disease and other diseases of the circulatory system; Z83.3 Family history of diabetes mellitus
CPT/HCPCS: 92960; 96374; 96375; 36415; 71045; 80048; 80053; 81001; 83735; 83880; 84436; 84443; 84484; 85025; 85378; 85610; 85730; 93005; 93306; 93970; G0378; J1742; J2405; J3010

== ENCOUNTER 2024-09-25 12:35 | Observation (INO) | payer MEDICARE, MEDICAID, SELFPAY ==
[2024-09-25] VITALS (19 sets, daily range): BP systolic 108–157; BP diastolic 69–105; PULSE 65–166; RESP 15–24; TEMP 36.4–36.8; O2SAT 93–97; BMI 45.1; BMI 42.5
--- NOTE | 2024-09-25 12:43 | ECG_ITS ---
APPROVED REPORT Exam: Resting ECG HR:168 bpm ECG Measurements Heart Rate 168 AXES QRSd 81 QRS -38 QT 271 T 77 QTc 363 Conclusion ATRIAL FIBRILLATION WITH RAPID VENTRICULAR RESPONSE LEFT AXIS DEVIATION [QRS AXIS < -30] MODERATE VOLTAGE CRITERIA FOR LVH, CONSIDER NORMAL VARIANT [MEETS CRITERIA IN ONE OF: R(aVL), S(V1), R(V5), R(V5/V6)+S(V1)] POSSIBLE ANTERIOR MYOCARDIAL INFARCTION , PROBABLY OLD [30 ms Q WAVE IN V3/V4, OR R < 0.2 mV IN V4] CRITICAL TEST RESULT UNCONFIRMED REPORT Tachycardic and irregularly irregular rhythm consistent with A-fib with RVR. No identifiable P waves. No ST elevation or depression or T wave inversions. Electronically signed by : LEONELA HAYDEN, 09/26/2024 07:40:44
--- NOTE | 2024-09-25 12:44 | XR_ITS ---
FINAL REPORT CLINICAL HISTORY: Shortness of breath COMPARISON: 08/31/2024 FINDINGS: CHEST 1 VIEW No acute pulmonary opacity is present. There is no evidence of effusion or pneumothorax. Mediastinum is unremarkable. Heart size is normal. IMPRESSION: No acute abnormality. Reviewed, Interpreted and Dictated by Nivia Hong MD Transcribed by Maria G Dawkins Authenticated and [facility]
[2024-09-25 12:51] LABS: Hematocrit 48.7 % (37.0-47.0); Hemoglobin 16.1 g/dL (12.2-16.2); Immature Granulocytes % 0.5 %; Mean Corpuscular HGB Conc 33.1 g/dL (31.8-35.4); Mean Corpuscular Hemoglobin 31.3 pg (27.0-31.2); Mean Corpuscular Volume 94.6 fl (81-99); Nucleated Red Blood Cells % 0 %; Platelet Count 265 K/mm3 (142-424); Red Blood Count 5.15 M/mm3 (4.20-5.40); Red Cell Distribution Width-SD 44.6 fL; White Blood Count 8.6 K/mm3 (4.8-10.8)
[2024-09-25] MEDS: METOPROLOL TARTRATE 5MG/5ML VIAL 5 MG IV ×3 (12:51→13:06)
--- OUTSIDE RECORDS SUMMARY | 2024-09-25 12:57 | XMS_ITS | Clinical Summary ---
Author Organization Healthcare Address [address] [place] [address] Care Team Providers Care Adjunct Instructor In Economics Name Role Phone Unavailable Primary Care Provider Unavailabl e Social History Tobacco Use Types Packs/Day Years Used Date Smoking Tobacco: Never Assessed Comments Unknown Sex and Gender Information Value Date Recorded Sex Assigned at Not on file Legal Sex Female 8:46 PM EDT Gender Identity Not on file Sexual Orientation Not on file Plan of Treatment Upcoming Encounters Date Type Department Care Team (Late st Contact Info) Description 12/24/2024 9:40 AM EDT Office Visit [facility] [place] [address] , [address] [place] [address] Diana Ritter MD [address] [place] [address] Health Maintenance Due Date Last Done Comments [facility]-Bone Density Scan 1958 [facility]-Depression Screening 1958 [facility]-/Child/Adol SDOH Screenings 1958 [facility]- SDOH Screenings 1976 [facility]-Adult SDOH Screenings 1976 [facility]-DTaP,Tdap,and Td Vaccine s (1 - Tdap) 1977 [facility]-Pap Smear 10/09/1979 [facility]-Cervical Cancer Screening 1988 [facility]-HPV/Cotest 1988 CT Colonography 10/09/2003 Colonoscopy 10/09/2003 FIT-DNA 10/09/2003 FIT 10/09/2003 FOBT 10/09/2003 Sigmoidoscopy 10/09/2003 [facility]-Colorectal Cancer Screening 10/09/2003 [facility]-Zoster Vaccines (1 of 2) 2008 [id number] Vaccine (1 - 20 24-25 season) 2023 [facility]-Influenza Vaccine (#1) 2024 [facility]-RSV Vaccine: 60+ Years o r (1 - 1-dose 75+ series) 2033 [facility]-Pneumococcal Vaccine: 50 + Years Completed 02/04/2024 HPV Vaccines Aged Out No longer eligi [...]
[2024-09-25 12:58] LABS: Albumin Level 4.3 g/dl (3.5-5.0); Chloride 108 mmol/L (98-107); Potassium 3.8 mmoL/L (3.5-5.1); Sodium 142 mmol/L (136-145)
--- NOTE | 2024-09-25 12:59 | ED_ITS ---
Discharge Plan Disposition Patient Disposition: Admitted Condition: Fair Clinical Impressions Clinical Impression: A-fib Discharge ED Provider: Miki Davies HPI <Anna Farfan (ED), [employer] - Last Filed: 09/25/24 18:52> General Chief Complaint: Chest Pain Stated Complaint: A-fib Time Seen by Provider: 09/25/24 12:49 Mode of Arrival: Ambulatory Source of Information: Patient and Spouse Description of Symptoms (Recalled from ER Triage Doc. by RN): Patient presents to ED from home with c/o feeling a squeezing pressure in her chest. Reports hx of AFib, states she was laying in bed when she started to feel unwell and felt her heart go into AFib. Patient denies SOA. History of Present Illness HPI narrative: 63-year-old female presents to the ED today complaint of squeezing and pressure in her chest. This started about 45 minutes prior to arrival. She does have history of A-fib. She was laying in bed and started to feel bad. She felt her heart switch rhythms and came to the ED. She denies any shortness of breath but feels bad. states that she was in the ICU here at [facility] about 2 weeks ago. She takes metoprolol for the A-fib. Per Miki Chau. She was diagnosed with shingles yesterday and started taking valacyclovir. Related Data Home Medications ?Medication ?Instructions ?Recorded ?Confirmed metoprolol succinate 50 mg 50 mg PO BID 08/31/2409/25 tablet,extended release 24 hr albuterol sulfate 90 mcg/actuation 2 inh inhalation Q6 HP PRN 09/01/24 09/25/24 aerosol inhaler (Ventolin HFA) shortness of breath or wheezing hydrocortisone 2.5 % topical cream 1 applic topical BI DP PRN skin 09/25/24 09/25/24 irritation Previous Rx's ?Medication ?Instructions ?Recorded atorvastatin 10 mg tablet 10 mg PO DAILY #90 tabs 06/09 budesonide-formoterol HFA 160 2 inh inhalation BID 90 days #30.6 08/14/24 mcg-4.5 mcg/actuation aerosol grams inhaler (Breyna) fluticasone propionate 50 2 spray intranasal DAILY 90 days 09/08/24 mcg/actuation nasal #16 grams spray,suspension (Flonase Allergy Relief) apixaban 5 mg tablet (Eliquis) 5 mg PO BID #60 tabs valacyclovir 1 gram tablet 1,000 mg PO Q8H 7 days #21 tabs 09/24/24 Allergies Allergy/AdvReac Type Severity Reaction Status Date / Time adhesive Allergy Rash Verified 09/25/24 17:48 PFSH <Anna Castrodevan (ED), [employer] - Last Filed: 09/25/24 18:52> PFSH Disclaimer: The information contained in this section may have been updated after the patient was seen, as this information can be updated by other users. Medical History Shingles Pedal edema Afib Endometrial polyp Pre-op evaluation Postmenopausal bleeding Positive colorectal cancer screening using Cologuard test Palpitations Dyspnea on exertion Allergic rhinitis Asthma Knee pain, bilateral Eye problems Screening for cervical cancer Screening for colon cancer Breast cancer screening by mammogram Hyperlipidemia Elevated blood pressure reading Fatigue Hx of hiatal hernia KIM (obstructive sleep apnea) Status post left heart catheterization (LHC) delivery delivered Hiatal hernia Surgical History History of section Family History Other Cancer Diabetes Hypertension Stroke Social History (Updated 09/25/24 @ 17:55 by Annia Dillon RN) Smoking Status: Never smoker alcohol intake: never substance use type: denies use current occupational status: retired Travel in the last 8 weeks?: None household members: spouse housing: house marital status: Have you lived/traveled outside US in past 30 days?: No Contact w/someone who lives/traveled outside US past 30 days?: No Exposure to someone with infectious disease in past 14 days?: No Do you have a fever (greater than 100.4 F or 38 C)?: No Have you tested positive for COVID-19?: No Exposed to someone with COVID-19 in past 14 days?: No Do you have a sore throat?: No Do you have a cough?: No Do you have any weakness?: No Are you experiencing any nausea/vomitting?: No Do you have any diarrhea?: No Are you experiencing any unusual bleeding?: No Do you have any muscle aches/pain?: No Do you have any abdominal pain?: No Are you experiencing loss of taste or smell?: No Other Medical History Have you received the Flu Vaccine for this season: No Have you received the Pneumonia Vaccine: Yes <Anna Kilshanna (ED), [employer] - Last Filed: 09/25/24 18:52> ROS Obtained: Yes Systems reviewed as appropriate & no additional complaints except as documented Constitutional Constitutional: Reports as per HPI Physical Exam <Anna Wolfshanna (ED), [employer] - Last Filed: 09/25/24 18:52> General General appearance: alert and in distress Head Head exam: normocephalic Eye Eye exam: Present PERRL ENT ENT exam: Present mucous membranes moist Neck Neck exam: Present normal inspection and trachea midline Chest Chest inspection: Present symmetric chest wall rise Respiratory Respiratory exam: Present normal lung sounds bilaterally Cardiovascular Cardiovascular exam: Present irregular rhythm, normal heart sounds, +S1 and +S2 Abdominal Exam Abdominal exam: Present soft and normal bowel sounds Extremities Exam Extremities exam: Present normal inspection, full ROM and normal capillary refill Back Exam Back exam: Present full ROM Neurological Exam Neurological exam: Present alert, oriented X3 and normal gait Psychiatric Psychiatric exam: Present normal affect and normal mood Skin Skin exam: Present warm and dry Lymphatic Lymphatic Findings: no adenopathy HEART Score <Anna Wolfshanna (ED), [employer] - Last Filed: 09/25/24 18:52> HEART Score HEART Score assessment performed?: Yes History (anamnesis): Moderately suspicious ECG: Non-specific disturbance Age: >65 years Risk factors: 3 or more risk factors Troponin: </= normal limit HEART Score: 6 <Miki Davies MD - Last Filed: 09/25/24 22:42> HEART Score HEART Score: 6 Critical Care <Anna Farfan (ED), [employer] - Last Filed: 09/25/24 18:52> Critical Care Time Critical Care Time: No <Miki Davies MD - Last Filed: 09/25/24 22:42> Critical Care Time Critical Care Time: Yes Attestation: On 09/25/24, the high probability of a clinically significant, sudden or life threatening deterioration of the following system(s) required my full and direct attention, intervention and personal management. The time I documented below is in addition to time spent performing reported procedures but includes the following listed in this critical care notation. Total Time Total Critical Care Time: 35 Medical Decision Making <Anna Farfan (ED), [employer] - Last Filed: 09/25/24 18:52> Andrew Inquiry Pt receiving controlled substance: No Andrew was queried for this patient: No Vital Signs Vital Signs: 09/25/24 12:42 09/25/24 12:54 09/25/24 13:02 Temperature 98.2 F Temperature Source Temporal Artery Scan Pulse Rate 139 H 131 H Pulse Rate [Left] 166 H Respiratory Rate 20 22 19 Blood Pressure 142/105 H 112/89 Blood Pressure [Right Arm] 149/89 H Blood Pressure Mean 114 97 Blood Pressure Mean [Right Arm] 109 Blood Pressure Source Blood Pressure Source [Right Arm] Automatic Cuff Blood Pressure Position Blood Pressure Position [Right Arm] Supine 02 Sat by Pulse Oximetry 97 96 95 Oxygen Delivery Method Room Air Room Air Room Air 09/25/24 13:19 09/25/24 13:31 09/25/24 14:15 Temperature Temperature Source Pulse Rate 124 H 136 H 138 H Pulse Rate [Left] Respiratory Rate 21 22 Blood Pressure 122/97 H 115/85 Blood Pressure [Right Arm] Blood Pressure Mean 105 97 Blood Pressure Mean [Right Arm] Blood Pressure Source Blood Pressure Source [Right Arm] Blood Pressure Position Blood Pressure Position [Right Arm] 02 Sat by Pulse Oximetry 96 93 L 97 Oxygen Delivery Method Room Air Room Air Room Air 09/25/24 14:30 09/25/24 15:00 09/25/24 15:15 Temperature Temperature Source Pulse Rate 111 H 136 H 112 H Pulse Rate [Left] Respiratory Rate 17 16 17 Blood Pressure 129/100 H 133/96 H Blood Pressure [Right Arm] Blood Pressure Mean 109 101 Blood Pressure Mean [Right Arm] Blood Pressure Source Blood Pressure Source [Right Arm] Blood Pressure Position Blood Pressure Position [Right Arm] 02 Sat by Pulse Oximetry 94 L 94 L 94 L Oxygen Delivery Method Room Air Room Air Room Air 09/25/24 15:31 09/25/24 15:45 09/25/24 16:01 Temperature Temperature Source Pulse Rate 114 H 92 H 124 H Pulse Rate [Left] Respiratory Rate 24 15 20 Blood Pressure 134/97 H 131/100 H Blood Pressure [Right Arm] Blood Pressure Mean 105 105 Blood Pressure Mean [Right Arm] Blood Pressure Source Blood Pressure Source [Right Arm] Blood Pressure Position Blood Pressure Position [Right Arm] 02 Sat by Pulse Oximetry 95 96 96 Oxygen Delivery Method Room Air Room Air Room Air 09/25/24 16:30 09/25/24 17:35 Temperature 97.6 F Temperature Source Oral Pulse Rate 100 H 74 Pulse Rate [Left] Respiratory Rate 18 18 Blood Pressure 114/93 H 134/91 H Blood Pressure [Right Arm] Blood Pressure Mean 95 Blood Pressure Mean [Right Arm] Blood Pressure Source Automatic Cuff Blood Pressure Source [Right Arm] Blood Pressure Position Supine Blood Pressure Position [Right Arm] 02 Sat by Pulse Oximetry 95 Oxygen Delivery Method Room Air Lab Data Labs: Lab Results 09/25/24 12:43: WBC 8.6, RBC 5.15, Hgb 16.1, Hct 48.7 H, MCV 94.6, MCH 31.3 H, MCHC 33.1, RDW 12.7, Plt Count 265, MPV 10.6 H, Neut % (Auto) 66.6, Lymph % (Auto) 23.1, Baca % (Auto) 7.5, Eos % (Auto) 2.0, Baso % (Auto) 0.3, Neut # (Auto) 5.7, Lymph # (Auto) 2.0, [place] # (Auto) 0.7, Eos # (Auto) 0.2, Baso # (Auto) 0.0, PT 11.2, INR 1.01, APTT 25.7, D-Dimer 0.32, Sodium 142, Potassium 3.8, Chloride 108 H, Carbon Dioxide 27, Anion Gap 10.8, BUN 14, Creatinine 0.70, Estimated Creat Clear 36, Estimated GFR 84, Est GFR ( Amer) 102, Glucose 105 H, Calcium 9.4, Magnesium 2.1, Total Bilirubin 0.9, AST 31, ALT 28, Alkaline Phosphatase 105, Troponin I < 0.01, NT-Pro-B Natriuret Pep 412 H, Total Protein 7.6, Albumin 4.3, Globulin 3.3 H, Albumin/Globulin Ratio 1.3, Lipase 148 09/25/24 14:00: Urine Color Yellow, Urine Appearance Sl cloudy, Urine pH 7.5, Ur Specific [place] 1.010, Urine Protein Negative, Urine Glucose (UA) Negative, Urine Ketones Negative, Urine Blood Negative, Urine Nitrate Negative, Urine Bilirubin Negative, Urine Urobilinogen 0.2, Ur Leukocyte Esterase Negative, Urine RBC 3-5, Urine WBC Occasional, Ur Squamous Epith Cells Occasional, Urine Bacteria Trace, Urine Mucus 1+ 09/25/24 15:27: Troponin I < 0.01 09/25/24 12:43 09/25/24 12:43 Response Orders (Tests/Meds): ED MEDICATIONS Generic Name Dose Route Start Last Admin Trade Name Freq PRN Reason Stop Dose Admin Acetaminophen 650 mg 09/25/24 16:56 09/25/24 17:13 Acetaminophen 325mg Tab PO 09/25/24 16:57 650 mg ONCE ONE Administration Acetaminophen 650 mg 09/25/24 18:52 Acetaminophen 325mg Tab PO 10/25/24 18:51 Q4HP PRN Fever or Mild Pain (1-3) Apixaban 5 mg 09/25/24 21:00 09/25/24 21:13 Apixaban 5mg Tablet PO 10/25/24 20:59 5 mg BID LAW Administration Atorvastatin Calcium 10 mg 09/26/24 09:00 Atorvastatin 10mg Tablet PO 10/26/24 08:59 DAILY LAW Diltiazem HCl 30 mg 09/25/24 22:00 Diltiazem 30mg Tablet PO 10/25/24 21:59 Q8H LAW Diltiazem HCl 100 mg/ Sodium 100 mls @ 10 mls/hr 09/25/24 16:09 09/25/24 18:16 Chloride IV 10/25/24 16:08 5 mg/hr .Q10H LAW 5 mls/hr Protocol Titration 10 MG/HR Non-Formulary Medication 1,000 mg 09/25/24 19:00 09/25/24 19:42 Valacyclovir PO 10/25/24 18:59 1,000 mg Q8H LAW Administration Non-Formulary Medication 2 inh 09/25/24 21:00 09/25/24 21:15 Budesonide-Formoterol [Breyna] IH 10/25/24 20:59 Not Given BID LAW Ondansetron HCl 4 mg 09/25/24 18:52 Ondansetron 4mg/2ml Vial IV 10/25/24 18:51 Q6HP PRN Nausea Discontinued Medications Generic Name Dose Route Start Last Admin Trade Name Freq PRN Reason Stop Dose Admin Diltiazem HCl 15 mg 09/25/24 16:07 09/25/24 16:16 Diltiazem 25mg/5ml Vial IV 09/25/24 16:08 15 mg ONCE ONE Administration Ibutilide Fumarate 1 mg/ 60 mls @ 360 mls/hr 09/25/24 14:15 09/25/24 14:13 Sodium Chloride IV 09/25/24 14:24 360 mls/hr ONCE ONE Administration Iopamidol 75 ml 09/25/24 13:16 09/25/24 13:16 Iopamidol-370 (76%);100ml Bottle IV 09/25/24 13:17 75 ml ONCE ONE Administration Metoprolol Tartrate 5 mg 09/25/24 12:44 09/25/24 12:51 Metoprolol Tartrate 5mg/5ml Vial IV 09/25/24 12:45 5 mg ONCE ONE Administration Metoprolol Tartrate 5 mg 09/25/24 12:50 09/25/24 12:59 Metoprolol Tartrate 5mg/5ml Vial IV 09/25/24 12:51 5 mg ONCE ONE Administration Metoprolol Tartrate 5 mg 09/25/24 12:59 09/25/24 13:06 Metoprolol Tartrate 5mg/5ml Vial IV 09/25/24 13:00 5 mg ONCE ONE Administration Sodium Chloride 50 ml 09/25/24 13:16 09/25/24 13:16 0.9 % Sodium Chloride 50 Ml Vial IV 09/25/24 13:17 50 ml ONCE ONE Administration Sodium Chloride 10 ml 09/25/24 13:16 09/25/24 13:16 Sodium Chloride 0.9% 10ml Syr (Rad Only) IV 09/25/24 13:17 10 ml ONCE ONE Administration ORDERS Category Date Time Status CTA Chest [CT angio chest PE protocol] Stat Cat Scan 09/25/24 13:00 Completed Chest XR -- portable [XR chest portable] Stat Exams 09/25/24 12:44 Completed BNP [NT Pro Brain Natriuretic Pep.] Stat Lab 09/25/24 12:43 Completed CBC [Complete Blood Count Auto Diff] Stat Lab 09/25/24 12:43 Completed Comprehensive Metabolic Panel Stat Lab 09/25/24 12:43 Completed D-Dimer Stat Lab 09/25/24 12:43 Completed Lipase Stat Lab 09/25/24 12:43 Completed Magnesium Stat Lab 09/25/24 12:43 Completed PT INR [Prothrombin Time INR] Stat Lab 09/25/24 12:43 Completed PTT [Activated Partial Thrombo Time] Stat Lab 09/25/24 12:43 Completed Trop I [Troponin I] Stat Lab 09/25/24 12:43 Completed Troponin I Q3H Lab 09/25/24 15:27 Completed Troponin I Q3H Lab 09/25/24 18:53 Completed UA [Urinalysis and Microscopic] Stat Lab 09/25/24 14:00 Completed MDM Narrative Medical Decision Narrative: patient is a 63-year-old female presenting to the emergency department for evaluation of rapid A-fib. Patient is 160s A-fib RVR upon arrival with stable blood pressure, afebrile. Differential diagnosis includes A-fib RVR. Workup will be conducted with hematologic labs, specific imaging. Initial inventions include crystalloid bolus, metoprolol 5 mg IV push x 3, ibutilide 1 mg over [address] Toussaint. Initial workup reviewed by me hematologic labs are remarkable for nothing acute. BNP was slightly elevated at 412 but Trope was normal. Imaging informally interpreted by me and remarkable for nothing acute. See radiology report for formal imaging. Upon repeat evaluation patient's heart rate has been jumping between 110-130's since we gave the ibutilide. Blood pressure remains stable. Patient at 1600 had not converted from A-fib RVR heart rate continues 138. Talk to Dr. Toussaint again and he wants that Dilt push of 15 and then 10 an hour on a dill drip. Discussed with Dr. Stafford who agrees to admit patient. Patient stable for admission. <Miki Davies MD - Last Filed: 09/25/24 22:42> Vital Signs Vital Signs: 09/25/24 12:42 09/25/24 12:54 09/25/24 13:02 Temperature 98.2 F Temperature Source Temporal Artery Scan Pulse Rate 139 H 131 H Pulse Rate [Left] 166 H Respiratory Rate 20 22 19 Blood Pressure 142/105 H 112/89 Blood Pressure [Right Arm] 149/89 H Blood Pressure Mean 114 97 Blood Pressure Mean [Right Arm] 109 Blood Pressure Source Blood Pressure Source [Right Arm] Automatic Cuff Blood Pressure Position Blood Pressure Position [Right Arm] Supine 02 Sat by Pulse Oximetry 97 96 95 Oxygen Delivery Method Room Air Room Air Room Air 09/25/24 13:19 09/25/24 13:31 09/25/24 14:15 Temperature Temperature Source Pulse Rate 124 H 136 H 138 H Pulse Rate [Left] Respiratory Rate 21 22 Blood Pressure 122/97 H 115/85 Blood Pressure [Right Arm] Blood Pressure Mean 105 97 Blood Pressure Mean [Right Arm] Blood Pressure Source Blood Pressure Source [Right Arm] Blood Pressure Position Blood Pressure Position [Right Arm] 02 Sat by Pulse Oximetry 96 93 L 97 Oxygen Delivery Method Room Air Room Air Room Air 09/25/24 14:30 09/25/24 15:00 09/25/24 15:15 Temperature Temperature Source Pulse Rate 111 H 136 H 112 H Pulse Rate [Left] Respiratory Rate 17 16 17 Blood Pressure 129/100 H 133/96 H Blood Pressure [Right Arm] Blood Pressure Mean 109 101 Blood Pressure Mean [Right Arm] Blood Pressure Source Blood Pressure Source [Right Arm] Blood Pressure Position Blood Pressure Position [Right Arm] 02 Sat by Pulse Oximetry 94 L 94 L 94 L Oxygen Delivery Method Room Air Room Air Room Air 09/25/24 15:31 09/25/24 15:45 09/25/24 16:01 Temperature Temperature Source Pulse Rate 114 H 92 H 124 H Pulse Rate [Left] Respiratory Rate 24 15 20 Blood Pressure 134/97 H 131/100 H Blood Pressure [Right Arm] Blood Pressure Mean 105 105 Blood Pressure Mean [Right Arm] Blood Pressure Source Blood Pressure Source [Right Arm] Blood Pressure Position Blood Pressure Position [Right Arm] 02 Sat by Pulse Oximetry 95 96 96 Oxygen Delivery Method Room Air Room Air Room Air 09/25/24 16:30 09/25/24 17:35 Temperature 97.6 F Temperature Source Oral Pulse Rate 100 H 74 Pulse Rate [Left] Respiratory Rate 18 18 Blood Pressure 114/93 H 134/91 H Blood Pressure [Right Arm] Blood Pressure Mean 95 Blood Pressure Mean [Right Arm] Blood Pressure Source Automatic Cuff Blood Pressure Source [Right Arm] Blood Pressure Position Supine Blood Pressure Position [Right Arm] 02 Sat by Pulse Oximetry 95 Oxygen Delivery Method Room Air Lab Data Labs: Lab Results 09/25/24 12:43: WBC 8.6, RBC 5.15, Hgb 16.1, Hct 48.7 H, MCV 94.6, MCH 31.3 H, MCHC 33.1, RDW 12.7, Plt Count 265, MPV 10.6 H, Neut % (Auto) 66.6, Lymph % (Auto) 23.1, Baca % (Auto) 7.5, Eos % (Auto) 2.0, Baso % (Auto) 0.3, Neut # (Auto) 5.7, Lymph # (Auto) 2.0, [place] # (Auto) 0.7, Eos # (Auto) 0.2, Baso # (Auto) 0.0, PT 11.2, INR 1.01, APTT 25.7, D-Dimer 0.32, Sodium 142, Potassium 3.8, Chloride 108 H, Carbon Dioxide 27, Anion Gap 10.8, BUN 14, Creatinine 0.70, Estimated Creat Clear 36, Estimated GFR 84, Est GFR ( Amer) 102, Glucose 105 H, Calcium 9.4, Magnesium 2.1, Total Bilirubin 0.9, AST 31, ALT 28, Alkaline Phosphatase 105, Troponin I < 0.01, NT-Pro-B Natriuret Pep 412 H, Total Protein 7.6, Albumin 4.3, Globulin 3.3 H, Albumin/Globulin Ratio 1.3, Lipase 148 09/25/24 14:00: Urine Color Yellow, Urine Appearance Sl cloudy, Urine pH 7.5, Ur Specific [place] 1.010, Urine Protein Negative, Urine Glucose (UA) Negative, Urine Ketones Negative, Urine Blood Negative, Urine Nitrate Negative, Urine Bilirubin Negative, Urine Urobilinogen 0.2, Ur Leukocyte Esterase Negative, Urine RBC 3-5, Urine WBC Occasional, Ur Squamous Epith Cells Occasional, Urine Bacteria Trace, Urine Mucus 1+ 09/25/24 15:27: Troponin I < 0.01 Response Orders (Tests/Meds): ED MEDICATIONS Generic Name Dose Route Start Last Admin Trade Name Freq PRN Reason Stop Dose Admin Acetaminophen 650 mg 09/25/24 16:56 09/25/24 17:13 Acetaminophen 325mg Tab PO 09/25/24 16:57 650 mg ONCE ONE Administration Acetaminophen 650 mg 09/25/24 18:52 Acetaminophen 325mg Tab PO 10/25/24 18:51 Q4HP PRN Fever or Mild Pain (1-3) Apixaban 5 mg 09/25/24 21:00 09/25/24 21:13 Apixaban 5mg Tablet PO 10/25/24 20:59 5 mg BID LAW Administration Atorvastatin Calcium 10 mg 09/26/24 09:00 Atorvastatin 10mg Tablet PO 10/26/24 08:59 DAILY LAW Diltiazem HCl 30 mg 09/25/24 22:00 Diltiazem 30mg Tablet PO 10/25/24 21:59 Q8H LAW Diltiazem HCl 100 mg/ Sodium 100 mls @ 10 mls/hr 09/25/24 16:09 09/25/24 18:16 Chloride IV 10/25/24 16:08 5 mg/hr .Q10H LAW 5 mls/hr Protocol Titration 10 MG/HR Non-Formulary Medication 1,000 mg 09/25/24 19:00 09/25/24 19:42 Valacyclovir PO 10/25/24 18:59 1,000 mg Q8H LAW Administration Non-Formulary Medication 2 inh 09/25/24 21:00 09/25/24 21:15 Budesonide-Formoterol [Breyna] IH 10/25/24 20:59 Not Given BID LAW Ondansetron HCl 4 mg 09/25/24 18:52 Ondansetron 4mg/2ml Vial IV 10/25/24 18:51 Q6HP PRN Nausea Discontinued Medications Generic Name Dose Route Start Last Admin Trade Name Freq PRN Reason Stop Dose Admin Diltiazem HCl 15 mg 09/25/24 16:07 09/25/24 16:16 Diltiazem 25mg/5ml Vial IV 09/25/24 16:08 15 mg ONCE ONE Administration Ibutilide Fumarate 1 mg/ 60 mls @ 360 mls/hr 09/25/24 14:15 09/25/24 14:13 Sodium Chloride IV 09/25/24 14:24 360 mls/hr ONCE ONE Administration Iopamidol 75 ml 09/25/24 13:16 09/25/24 13:16 Iopamidol-370 (76%);100ml Bottle IV 09/25/24 13:17 75 ml ONCE ONE Administration Metoprolol Tartrate 5 mg 09/25/24 12:44 09/25/24 12:51 Metoprolol Tartrate 5mg/5ml Vial IV 09/25/24 12:45 5 mg ONCE ONE Administration Metoprolol Tartrate 5 mg 09/25/24 12:50 09/25/24 12:59 Metoprolol Tartrate 5mg/5ml Vial IV 09/25/24 12:51 5 mg ONCE ONE Administration Metoprolol Tartrate 5 mg 09/25/24 12:59 09/25/24 13:06 Metoprolol Tartrate 5mg/5ml Vial IV 09/25/24 13:00 5 mg ONCE ONE Administration Sodium Chloride 50 ml 09/25/24 13:16 09/25/24 13:16 0.9 % Sodium Chloride 50 Ml Vial IV 09/25/24 13:17 50 ml ONCE ONE Administration Sodium Chloride 10 ml 09/25/24 13:16 09/25/24 13:16 Sodium Chloride 0.9% 10ml Syr (Rad Only) IV 09/25/24 13:17 10 ml ONCE ONE Administration ORDERS Category Date Time Status CTA Chest [CT angio chest PE protocol] Stat Cat Scan 09/25/24 13:00 Completed Chest XR -- portable [XR chest portable] Stat Exams 09/25/24 12:44 Completed BNP [NT Pro Brain Natriuretic Pep.] Stat Lab 09/25/24 12:43 Completed CBC [Complete Blood Count Auto Diff] Stat Lab 09/25/24 12:43 Completed Comprehensive Metabolic Panel Stat Lab 09/25/24 12:43 Completed D-Dimer Stat Lab 09/25/24 12:43 Completed Lipase Stat Lab 09/25/24 12:43 Completed Magnesium Stat Lab 09/25/24 12:43 Completed PT INR [Prothrombin Time INR] Stat Lab 09/25/24 12:43 Completed PTT [Activated Partial Thrombo Time] Stat Lab 09/25/24 12:43 Completed Trop I [Troponin I] Stat Lab 09/25/24 12:43 Completed Troponin I Q3H Lab 09/25/24 15:27 Completed Troponin I Q3H Lab 09/25/24 18:53 Completed UA [Urinalysis and Microscopic] Stat Lab 09/25/24 14:00 Completed ECG Data Tracing #1: Attestation: I reviewed this ECG and interpreted as documented below: ECG Narrative: Irregularly irregular rhythm consistent with atrial fibrillation with rapid ventricular response. No ST elevation or depression. No T wave inversions. MDM Narrative Medical Decision Narrative: patient is a 63-year-old female presenting to the emergency department for evaluation of rapid A-fib. Patient is 160s A-fib RVR upon arrival with stable blood pressure, afebrile. Differential diagnosis includes A-fib RVR. Workup will be conducted with hematologic labs, specific imaging. Initial inventions include crystalloid bolus, metoprolol 5 mg IV push x 3, ibutilide 1 mg over [address] Toussaint. Initial workup reviewed by me hematologic labs are remarkable for nothing acute. BNP was slightly elevated at 412 but Trope was normal. Imaging informally interpreted by me and remarkable for nothing acute. See radiology report for formal imaging. Upon repeat evaluation patient's heart rate has been jumping between 110-130's since we gave the ibutilide. Blood pressure remains stable. Patient at 1600 had not converted from A-fib RVR heart rate continues 138. Talk to Dr. Toussaint again and he wants that Dilt push of 15 and then 10 an hour on a dill drip. Discussed with Dr. Stafford who agrees to admit patient. Patient stable for admission. I was consulted by the DAGO, and we discussed the complexity of the problems being addressed. I approve the treatment and management plan for this patient's care in the emergency department, thus performing a substantive portion of the medical decision making. Conversations were had with Dr. Toussaint via [employer], who, as stated above recommended ibutilide 1 mg over 10 minutes. It is noted that this medication can take 30 minutes to 90 minutes to have full effect. Over the course of 90 minutes, patient's heart rate did improve somewhat to the 110-130 range, however she remained in A-fib with RVR, most recently with a heart rate of 138. [facility] [employer] discussed the case again with Dr. Toussaint who did recommend a diltiazem push of 15 mg and that diltiazem drip. He also recommended admission at this time. We did consider electrical cardioversion, however based on previous documentation, patient underwent procedural sedation with cardioversion x 3 that was unsuccessful, so this was not pursued at this time. Miki Davies MD
--- NOTE | 2024-09-25 13:00 | CT_ITS ---
FINAL REPORT TECHNIQUE: Thin section axial CT with contrast with multiplanar reconstruction This study was performed with techniques to keep radiation doses as low as reasonably achievable, (ALARA). Individualized dose reduction techniques using automated exposure control or adjustment of mA and/or kV according to the patient's size were employed. CLINICAL HISTORY: shortness of breath COMPARISON: None FINDINGS: CTA CHEST: Pulmonary vessels enhance in normal fashion without evidence of embolism. Thoracic aorta shows no dissection or aneurysm. There is a mild mosaic perfusion pattern, which could indicate air trapping. No areas of consolidation are identified. There is no significant pleural effusion. There is no significant pericardial effusion. No mediastinal or hilar adenopathy is present. A large hiatal hernia is noted. IMPRESSION: 1. No evidence of pulmonary embolism 2. Mild mosaic perfusion pattern, which could indicate air trapping. This may be seen with small airways disease. No areas of consolidation are noted. Reviewed, Interpreted and Dictated by Nivia Hong MD Transcribed by Alla Blanca Authenticated and [facility]
[2024-09-25 13:01] LABS: Alanine Aminotransferase 28 U/L (12-78); Albumin/Globulin Ratio 1.3 (1.1-1.8); Alkaline Phosphatase 105 U/L (38-126); Anion Gap 10.8 mEq/L (5-15); Aspartate Amino Transferase 31 U/L (14-36); Bilirubin,Total 0.9 mg/dl (0.2-1.3); Blood Urea Nitrogen 14 mg/dl (7-17); Calcium 9.4 mg/dl (8.4-10.2); Carbon Dioxide 27 mmol/L (22.0-30.0); Creatinine Clearance Estimated 36 mL/min (50-200); Creatinine,Serum 0.70 mg/dl (0.52-1.04); Estimated Glomerular Filt Rate 84 ml/min (>60); GFR (African American) 102 ML/MIN (>60); Globulin 3.3 g/dL (1.3-3.2); Glucose 105 mg/dl (74-100); Lipase 148 U/L (23-300); Magnesium 2.1 mg/dl (1.6-2.3); Total Protein,Serum 7.6 g/dl (6.3-8.2)
[2024-09-25 13:03] LABS: Activated Partial Thrombo Time 25.7 seconds (22.8-30.6); INR 1.01 (0.9-1.1); Prothrombin Time 11.2 seconds (10.1-12.5)
[2024-09-25 13:12] LABS: D-Dimer 0.32 ug/mL (0.0-0.5)
[2024-09-25 13:14] LABS: Troponin I < 0.01 ng/ml (0.00-0.034)
[2024-09-25] MEDS: SODIUM CHLORIDE 0.9% 10ML SYR (RAD ONLY) 10 ML IV (13:16)
[2024-09-25] MEDS: IOPAMIDOL-370 (76%);100ML BOTTLE 75 ML IV (13:16)
[2024-09-25] MEDS: 0.9 % SODIUM CHLORIDE 50 ML VIAL IV (13:16)
[2024-09-25 13:18] LABS: NT Pro Brain Natriuretic Pep. 412 pg/mL (0-125)
--- NOTE | 2024-09-25 13:39 | PC.NURSE ---
Dr. Davies notified patient's heart rate remains elevated post three IVP metoprolol 5 mg doses at a rate of 120-150bpm. Patient is alert and oriented, at bedside. Patient denies complaints at this time.
[2024-09-25] MEDS: SODIUM CHLORIDE 0.9% IV (14:13)
[2024-09-25] MEDS: [UNRECOGNIZED DRUG - OTHER] IV (14:13)
--- NOTE | 2024-09-25 14:14 | PC.NURSE ---
Administered medications verfied via bracelet, verified allergies. Cosigned with MANUEL Greenwood
[2024-09-25 14:16] LABS: Microscopic, Urine URINE MICROSCOPIC (MICROSCOPIC)
--- NOTE | 2024-09-25 14:16 | HMH.PHAINT1 ---
Pharmacy Intervention Comments: MEDICATION RECONCILIATION COMPLETED ON PATIENT USING EXTERNAL FILL HISTORY FROM PHARMACY AND DISCHARGE SUMMARY FROM PREVIOUS ADMISSION. -GERDA MEDINA, MIRELAD
[2024-09-25 14:24] LABS: Bilirubin,Urine Negative (Negative); Color,Urine YELLOW (Yellow); Glucose,Urine (UA) Negative (Negative); Ketones,Urine Negative (Negative); Leukocyte Esterase,Urine Negative (Negative); PH,Urine 7.5 (5.0-8.5); Protein,Urine Negative (Negative); Specific Gravity, Urine 1.010 (1.005-1.030); Urobilinogen,Urine 0.2 EU/dl (0.2)
--- NOTE | 2024-09-25 15:04 | PC.NURSE ---
Elena JURADO is contacting the hospitalist about admission.
[2024-09-25 15:14] LABS: Bacteria,Urine Trace /lpf; Mucus,Urine 1+ /lpf; Squamous Epithelial Cell,Urine Occasional #/hpf (0-5); WBC,Urine Occasional #/hpf (0-3)
[2024-09-25 16:14] LABS: Troponin I < 0.01 ng/ml (0.00-0.034)
--- NOTE | 2024-09-25 17:10 | PC.NURSE ---
Patient handoff report called to BRENT Milner.
[2024-09-25] MEDS: ACETAMINOPHEN 325MG TAB 650 MG PO (17:13)
--- NOTE | 2024-09-25 17:39 | PC.NURSE ---
patient arrived to ICU room 263 @[id number] via wheelchair with RN
--- NOTE | 2024-09-25 17:44 | PC.NURSE ---
pt refused CRE swab
--- NOTE | 2024-09-25 18:19 | PC.WOUNDNOTE ---
pt's right upper back by shoulder blade
--- NOTE | 2024-09-25 18:43 | ECG_ITS ---
APPROVED REPORT Exam: Resting ECG HR:60 bpm ECG Measurements Heart Rate 60 AXES ID 145 P 18 QRSd 80 QRS -25 QT 403 T 13 QTc 403 Conclusion SINUS RHYTHM BORDERLINE LEFT AXIS DEVIATION [QRS AXIS < -20] BORDERLINE ECG UNCONFIRMED REPORT Electronically signed by : Wander Valente MD 09/28/2024 08:01:04
--- NOTE | 2024-09-25 18:49 | EXP.HP ---
History of Present Illness *Admission Date: 09/25/24 *Reason for visit:: Chest pressure *History of present illness: Lin Suazo is a 63-year-old female with a medical history significant for paroxysmal A-fib presents with chest pressure. She states it began with sudden this morning, and proceeded to take an additional metoprolol succinate 25 mg at advised by cardiology and proceeded to the ED. Denies chest pain, shortness of breath, fever/chills, abdominal pain. She states she has been taking metoprolol 50 mg daily, though she was recently discharged 50 mg twice daily. Patient states she was unaware of this. Of note, patient states that she started on valacyclovir yesterday for suspected shingles on her right upper back. Workup in the ED significant for initial heart rate of166 refractory to IV Lopressor x 3, Ibulitide 1 mg. As such, Dr. Toussaint was consulted and recommended diltiazem bolus with drip to which patient responded well in the ED. Heart rate in the 60s. Case discussed with ED provider decision made to admit patient for A-fib RVR. [facility] Disclaimer: The information contained in this section may have been updated after the patient was seen, as this information can be updated by other users. Medical History Shingles Pedal edema Afib Endometrial polyp Pre-op evaluation Postmenopausal bleeding Positive colorectal cancer screening using Cologuard test Palpitations Dyspnea on exertion Allergic rhinitis Asthma Knee pain, bilateral Eye problems Screening for cervical cancer Screening for colon cancer Breast cancer screening by mammogram Hyperlipidemia Elevated blood pressure reading Fatigue Hx of hiatal hernia KIM (obstructive sleep apnea) Status post left heart catheterization (LHC) delivery delivered Hiatal hernia Surgical History History of section Family History Other Cancer Diabetes Hypertension Stroke Social History (Updated 09/25/24 @ 17:55 by Annia Dillon RN) Smoking Status: Never smoker alcohol intake: never substance use type: denies use current occupational status: retired Travel in the last 8 weeks?: None household members: spouse housing: house marital status: Have you lived/traveled outside [place] in past 30 days?: No Contact w/someone who lives/traveled outside US past 30 days?: No Exposure to someone with infectious disease in past 14 days?: No Do you have a fever (greater than 100.4 F or 38 C)?: No Have you tested positive for COVID-19?: No Exposed to someone with COVID-19 in past 14 days?: No Do you have a sore throat?: No Do you have a cough?: No Do you have any weakness?: No Are you experiencing any nausea/vomitting?: No Do you have any diarrhea?: No Are you experiencing any unusual bleeding?: No Do you have any muscle aches/pain?: No Do you have any abdominal pain?: No Are you experiencing loss of taste or smell?: No Other Medical History Have you received the Flu Vaccine for this season: No Have you received the Pneumonia Vaccine: Yes Meds Home Medications and Allergies Home Medications ?Medication ?Instructions ?Recorded ?Confirmed ?Type atorvastatin 10 mg tablet 10 mg PO DAILY #90 tabs 06/18/24 09/25/24 Rx budesonide-formoterol HFA 160 2 inh inhalation BID 90 days #30.6 08/14/24 09/25/24 Rx mcg-4.5 mcg/actuation aerosol grams inhaler (Breyna) metoprolol succinate 50 mg 50 mg PO BID 08/31/24 09/25/24 History tablet,extended release 24 hr albuterol sulfate 90 mcg/actuation 2 inh inhalation Q6HP PRN 09/01/24 09/25/24 History aerosol inhaler (Ventolin HFA) shortness of breath or wheezing fluticasone propionate 50 2 spray intranasal DAILY 90 days 09/08/24 09/25/24 Rx mcg/actuation nasal #16 grams spray,suspension (Flonase Allergy Relief) apixaban 5 mg tablet (Eliquis) 5 mg PO BID #60 tabs 09/10/24 09/25/24 Rx valacyclovir 1 gram tablet 1,000 mg PO Q8H 7 days #21 tabs 09/24/24 09/25/24 Rx hydrocortisone 2.5 % topical cream 1 applic topical BIDP PRN skin 09/25/24 09/25/24 History irritation New Prescriptions to Start Prescriptions: Allergies Allergy/AdvReac Type Severity Reaction Status Date / Time adhesive Allergy Rash Verified 09/25/24 17:48 Exam Data for Last 24 hours Vital signs and Labs for Last 24 Hours: Temp Pulse Resp BP Pulse Ox O2 Del Method 97.6 F 67 18 108/69 L 94 L Room Air 09/25/24 18:03 09/25/24 18:03 09/25/24 18:03 09/25/24 18:03 09/25/24 18:03 09/25/24 18:44 Laboratory Results - last 24 hr 09/25/24 12:43: WBC 8.6, RBC 5.15, Hgb 16.1, Hct 48.7 H, MCV 94.6, MCH 31.3 H, MCHC 33.1, RDW 12.7, Plt Count 265, MPV 10.6 H, Neut % (Auto) 66.6, Lymph % (Auto) 23.1, [place] % (Auto) 7.5, Eos % (Auto) 2.0, Baso % (Auto) 0.3, Neut # (Auto) 5.7, Lymph # (Auto) 2.0, [place] # (Auto) 0.7, Eos # (Auto) 0.2, Baso # (Auto) 0.0, PT 11.2, INR 1.01, APTT 25.7, D-Dimer 0.32, Sodium 142, Potassium 3.8, Chloride 108 H, Carbon Dioxide 27, Anion Gap 10.8, BUN 14, Creatinine 0.70, Estimated Creat Clear 36, Estimated GFR 84, Est GFR ( Amer) 102, Glucose 105 H, Calcium 9.4, Magnesium 2.1, Total Bilirubin 0.9, AST 31, ALT 28, Alkaline Phosphatase 105, Troponin I < 0.01, NT-Pro-B Natriuret Pep 412 H, Total Protein 7.6, Albumin 4.3, Globulin 3.3 H, Albumin/Globulin Ratio 1.3, Lipase 148 09/25/24 14:00: Urine Color Yellow, Urine Appearance Sl cloudy, Urine pH 7.5, Ur Specific [place] 1.010, Urine Protein Negative, Urine Glucose (UA) Negative, Urine Ketones Negative, Urine Blood Negative, Urine Nitrate Negative, Urine Bilirubin Negative, Urine Urobilinogen 0.2, Ur Leukocyte Esterase Negative, Urine RBC 3-5, Urine WBC Occasional, Ur Squamous Epith Cells Occasional, Urine Bacteria Trace, Urine Mucus 1+ 07/18/25 15:27: Troponin I < 0.01 I & O for Last 24 hours: Intake & Output 09/22/24 09/23/24 09/24/24 09/25/24 23:59 23:59 23:59 23:59 Intake Total 18.6 / 18.6 Balance 18.6 / 18.6 Weight 92.306 kg Constitutional Constitutional: no acute distress *Routine HEENT Exam Head: Present normocephalic Eye: Present EOMI and PERRL ENT: Present mucous membranes moist *Routine Neck Exam Neck: Present supple; Absent lymphadenopathy *Routine Respiratory Exam Respiratory: Present CTA bilaterally *Routine Cardiovascular Exam Cardiovascular: Present RRR *Routine Abdominal Exam Abdominal: Present soft and normoactive bowel sounds; Absent tenderness *Routine Rectal Exam Rectal:: deferred *Routine Genitalia Exam Genitalia:: deferred *Routine Extremities Exam Extremities: Absent cyanosis, clubbing or edema *Routine Skin Exam Skin: Present warm; Absent rash *Routine Neurological Exam Neurological: Present alert and oriented X3 Assessment and Plan *Assessment and plan (1) A-fib: Status: Acute Category: Medical Code(s): I48.91 - Unspecified atrial fibrillation Plan Lin Suazo is a 63-year-old female with a medical history significant for paroxysmal A-fib presents with chest pressure. She states it began with sudden this morning, and proceeded to take an additional metoprolol succinate 25 mg at advised by cardiology and proceeded to the ED. Denies chest pain, shortness of breath, fever/chills, abdominal pain. She states she has been taking metoprolol 50 mg daily, though she was recently discharged 50 mg twice daily. Patient states she was unaware of this. Of note, patient states that she started on valacyclovir yesterday for suspected shingles on her right upper back. Workup in the ED significant for initial heart rate of166 refractory to IV Lopressor x 3, Ibulitide 1 mg. As such, Dr. Toussaint was consulted and recommended diltiazem bolus with drip to which patient responded well in the ED. Heart rate in the 60s. Case discussed with ED provider decision made to admit patient for A-fib RVR. #Acute on chronic A-fib RVR ? Presented with chest pressure this morning, took an additional metoprolol succinate 25 mg as previously advised cardiology without alleviation of symptoms. ? Initial heart rate in the 160s, refractory to IV Lopressor x 3, Ibulitide 1 mg. As such, Dr. Toussaint was consulted and recommended diltiazem bolus with drip to which patient responded well in the ED. ? Currently normal sinus rhythm with heart rate of 67, will wean off diltiazem drip. ? Started diltiazem 60 mg every 8 hours. Plan to transition to long-acting tomorrow. ? Resume home Eliquis 5 mg twice daily. ? Continuous cardiac telemetry. #COPD ? Continue home Advair. #Suspected shingles ? Continue home valacyclovir. #Obesity ? Complicates all aspects of care. Full code DVT prophylaxis: Home Eliquis.
[2024-09-25 19:27] LABS: Troponin I < 0.01 ng/ml (0.00-0.034)
[2024-09-25] MEDS: PATIENT'S OWN HOME MEDICATION (Valacyclovir 1 gram tablet) 1000 EACH PO (19:42)
[2024-09-25] MEDS: APIXABAN 5MG TABLET 5 MG PO (21:13)
[2024-09-26] VITALS (7 sets, daily range): BP systolic 83–144; BP diastolic 55–96; PULSE 55–77; RESP 14–18; TEMP 36.4–36.7; O2SAT 91–97; BMI 44.9
[2024-09-26] MEDS: PATIENT'S OWN HOME MEDICATION (Valacyclovir 1 gram tablet) 1000 EACH PO (03:25)
[2024-09-26] MEDS: ACETAMINOPHEN 325MG TAB 650 MG PO (03:31)
[2024-09-26 07:38] LABS: Hematocrit 44.3 % (37.0-47.0); Immature Granulocytes % 0.6 %; Mean Corpuscular HGB Conc 32.1 g/dL (31.8-35.4); Mean Corpuscular Hemoglobin 30.3 pg (27.0-31.2); Mean Corpuscular Volume 94.7 fl (81-99); Nucleated Red Blood Cells % 0 %; Platelet Count 226 K/mm3 (142-424); Red Blood Count 4.68 M/mm3 (4.20-5.40); Red Cell Distribution Width-SD 44.5 fL; White Blood Count 7.7 K/mm3 (4.8-10.8)
[2024-09-26 07:58] LABS: Alanine Aminotransferase 21 U/L (12-78); Albumin Level 3.6 g/dl (3.5-5.0); Albumin/Globulin Ratio 1.6 (1.1-1.8); Alkaline Phosphatase 92 U/L (38-126); Anion Gap 8.1 mEq/L (5-15); Aspartate Amino Transferase 28 U/L (14-36); Bilirubin,Total 0.6 mg/dl (0.2-1.3); Blood Urea Nitrogen 14 mg/dl (7-17); Calcium 9.2 mg/dl (8.4-10.2); Carbon Dioxide 26 mmol/L (22.0-30.0); Chloride 109 mmol/L (98-107); Creatinine Clearance Estimated 34 mL/min (50-200); Creatinine,Serum 0.80 mg/dl (0.52-1.04); Estimated Glomerular Filt Rate 72 ml/min (>60); GFR (African American) 87 ML/MIN (>60); Globulin 2.2 g/dL (1.3-3.2); Glucose 107 mg/dl (74-100); Magnesium 2.3 mg/dl (1.6-2.3); Potassium 4.1 mmoL/L (3.5-5.1); Sodium 139 mmol/L (136-145); Total Protein,Serum 5.8 g/dl (6.3-8.2)
[2024-09-26 08:16] LABS: Hemoglobin 14.2 g/dL (12.2-16.2)
[2024-09-26] MEDS: PAT OWN MED ***APIXABAN 5MG 5 MG PO (09:47)
[2024-09-26] MEDS: dilTIAZem ER 120MG CAPSULE 120 MG PO (09:48)
[2024-09-26] MEDS: VALACYCLOVIR 1 GM 1000 EACH PO (10:03)
--- NOTE | 2024-09-26 13:17 | EXP.DC.SUM ---
General Admission date:: 09/25/24 HPI HPI HPI: Lin Suazo is a 63-year-old female with a medical history significant for paroxysmal A-fib presents with chest pressure. She states it began with sudden this morning, and proceeded to take an additional metoprolol succinate 25 mg at advised by cardiology and proceeded to the ED. Denies chest pain, shortness of breath, fever/chills, abdominal pain. She states she has been taking metoprolol 50 mg daily, though she was recently discharged 50 mg twice daily. Patient states she was unaware of this. Of note, patient states that she started on valacyclovir yesterday for suspected shingles on her right upper back. Workup in the ED significant for initial heart rate of166 refractory to IV Lopressor x 3, Ibulitide 1 mg. As such, Dr. Toussaint was consulted and recommended diltiazem bolus with drip to which patient responded well in the ED. Heart rate in the 60s. Case discussed with ED provider decision made to admit patient for A-fib RVR. Hospital Course Hospital Course Hospital Course: Lin Suazo is a 63-year-old female with a medical history significant for paroxysmal A-fib presents with chest pressure. She states it began with sudden this morning, and proceeded to take an additional metoprolol succinate 25 mg at advised by cardiology and proceeded to the ED. Denies chest pain, shortness of breath, fever/chills, abdominal pain. She states she has been taking metoprolol 50 mg daily, though she was recently discharged 50 mg twice daily. Patient states she was unaware of this. Of note, patient states that she started on valacyclovir yesterday for suspected shingles on her right upper back. Workup in the ED significant for initial heart rate of166 refractory to IV Lopressor x 3, Ibulitide 1 mg. As such, Dr. Toussaint was consulted and recommended diltiazem bolus with drip to which patient responded well in the ED. Heart rate in the 60s. Case discussed with ED provider decision made to admit patient for A-fib RVR. #Acute on chronic A-fib RVR ? Presented with chest pressure this morning, took an additional metoprolol succinate 25 mg as previously advised cardiology without alleviation of symptoms. ? Initial heart rate in the 160s, refractory to IV Lopressor x 3, Ibulitide 1 mg. As such, Dr. Toussaint was consulted and recommended diltiazem bolus with drip to which patient responded well in the ED. ? Patient states she had been taking metoprolol succinate 50 mg daily as opposed to twice daily as prescribed. ? Heart rate improved with IV diltiazem drip, transitioned to diltiazem 120 mg. NSR currently. ? Discussed with Dr. Toussaint, discharged with metoprolol succinate 50 mg twice daily and diltiazem 120 mg. ? Resume home Eliquis 5 mg twice daily. ? Advised to follow-up with cardiology within 1 week. #COPD ? Continue home Advair. #Suspected shingles ? Continue home valacyclovir. #Obesity ? Complicates all aspects of care. Total time spent on discharge: 32 minutes on chart review, counseling, documentation, and direct care with patient. Exam Data for Last 24 hours Vital signs and Labs for Last 24 Hours: Temp Pulse Resp BP Pulse Ox O2 Del Method O2 Flow Rate 98.0 F 70 14 144/96 H 91 L Room Air 2 09/26/24 12:00 09/26/24 12:00 09/26/24 12:00 09/26/24 12:00 09/26/24 12:00 09/26/24 13:00 09/26/24 07:00 Laboratory Results - last 24 hr 09/25/24 12:43: NT-Pro-B Natriuret Pep 412 H 09/25/24 14:00: Urine Color Yellow, Urine Appearance Sl cloudy, Urine pH 7.5, Ur Specific [place] 1.010, Urine Protein Negative, Urine Glucose (UA) Negative, Urine Ketones Negative, Urine Blood Negative, Urine Nitrate Negative, Urine Bilirubin Negative, Urine Urobilinogen 0.2, Ur Leukocyte Esterase Negative, Urine RBC 3-5, Urine WBC Occasional, Ur Squamous Epith Cells Occasional, Urine Bacteria Trace, Urine Mucus 1+ 09/25/24 15:27: Troponin I < 0.01 09/25/24 18:53: Troponin I < 0.01 09/26/24 06:49: WBC 7.7, RBC 4.68, Hgb 14.2 D, Hct 44.3, MCV 94.7, MCH 30.3, MCHC 32.1, RDW 12.9, Plt Count 226, MPV 10.9 H, Neut % (Auto) 60.3, Lymph % (Auto) 29.2, [place] % (Auto) 6.7, Eos % (Auto) 2.6, Baso % (Auto) 0.6, Neut # (Auto) 4.6, Lymph # (Auto) 2.3, [place] # (Auto) 0.5, Eos # (Auto) 0.2, Baso # (Auto) 0.1, Sodium 139, Potassium 4.1, Chloride 109 H, Carbon Dioxide 26, Anion Gap 8.1, BUN 14, Creatinine 0.80, Estimated Creat Clear 34, Estimated GFR 72, Est GFR ( Amer) 87, Glucose 107 H, Calcium 9.2, Magnesium 2.3, Total Bilirubin 0.6, AST 28, ALT 21, Alkaline Phosphatase 92, Total Protein 5.8 L, Albumin 3.6 D, Globulin 2.2, Albumin/Globulin Ratio 1.6 I & O for Last 24 hours: Intake & Output 09/23/24 09/24/24 09/25/24 09/26/24 23:59 23:59 23:59 23:59 Intake Total 18.6 / 258.6 672 / 672 Output Total 0 / 0 0 / 0 Balance 18.6 / 258.6 672 / 672 Weight 92.306 kg 97.114 kg *Routine HEENT Exam Head: Present normocephalic Eye: Present EOMI and PERRL ENT: Present mucous membranes moist *Routine Neck Exam Neck: Present supple and full ROM; Absent JVD Routine Chest/Breast/Axilla Exam Chest wall: Absent tenderness *Routine Respiratory Exam Respiratory: Present CTA bilaterally, able to speak in complete sentences and symmetric chest movement *Routine Cardiovascular Exam Cardiovascular: Present RRR; Absent murmur *Routine Abdominal Exam Abdominal: Present soft and normoactive bowel sounds; Absent tenderness or distended *Routine Skin Exam Skin: Present intact and rash (Rash on chest from ZOLL pads.) *Routine Neurological Exam Neurological: Present alert, oriented X3, vision grossly intact and hearing grossly intact Results Data Completed and Pending Labs on day of discharge: Labs from last 24 hours 09/26/24 09/25/24 09/25/24 06:49 18:53 15:27 WBC 7.7 RBC 4.68 Hgb 14.2 D Hct 44.3 MCV 94.7 MCH 30.3 MCHC 32.1 RDW 12.9 Plt Count 226 MPV 10.9 H Neut % (Auto) 60.3 Lymph % (Auto) 29.2 [place] % (Auto) 6.7 Eos % (Auto) 2.6 Baso % (Auto) 0.6 Neut # (Auto) 4.6 Lymph # (Auto) 2.3 [place] # (Auto) 0.5 Eos # (Auto) 0.2 Baso # (Auto) 0.1 Sodium 139 Potassium 4.1 Chloride 109 H Carbon Dioxide 26 Anion Gap 8.1 BUN 14 Creatinine 0.80 Estimated Creat Clear 34 Estimated GFR 72 Est GFR ( Amer) 87 Glucose 107 H Calcium 9.2 Magnesium 2.3 Total Bilirubin 0.6 AST 28 ALT 21 Alkaline Phosphatase 92 Troponin I < 0.01 < 0.01 NT-Pro-B Natriuret Pep Total Protein 5.8 L Albumin 3.6 D Globulin 2.2 Albumin/Globulin Ratio 1.6 Urine Color Urine Appearance Urine pH Ur Specific [place] Urine Protein Urine Glucose (UA) Urine Ketones Urine Blood Urine Nitrate Urine Bilirubin Urine Urobilinogen Ur Leukocyte Esterase Urine RBC Urine WBC Ur Squamous Epith Cells Urine Bacteria Urine Mucus 09/25/24 09/25/24 14:00 12:43 WBC RBC Hgb Hct MCV MCH MCHC RDW Plt Count MPV Neut % (Auto) Lymph % (Auto) [place] % (Auto) Eos % (Auto) Baso % (Auto) Neut # (Auto) Lymph # (Auto) [place] # (Auto) Eos # (Auto) Baso # (Auto) Sodium Potassium Chloride Carbon Dioxide Anion Gap BUN Creatinine Estimated Creat Clear Estimated GFR Est GFR ( Amer) Glucose Calcium Magnesium Total Bilirubin AST ALT Alkaline Phosphatase Troponin I NT-Pro-B Natriuret Pep 412 H Total Protein Albumin Globulin Albumin/Globulin Ratio Urine Color Yellow Urine Appearance Sl cloudy Urine pH 7.5 Ur Specific [place] 1.010 Urine Protein Negative Urine Glucose (UA) Negative Urine Ketones Negative Urine Blood Negative Urine Nitrate Negative Urine Bilirubin Negative Urine Urobilinogen 0.2 Ur Leukocyte Esterase Negative Urine RBC 3-5 Urine WBC Occasional Ur Squamous Epith Cells Occasional Urine Bacteria Trace Urine Mucus 1+ DS: Diagnosis Discharge Diagnosis (1) A-fib: Status: Acute Code(s): I48.91 - Unspecified atrial fibrillation Meds Home Medications and Allergies Home Medications ?Medication ?Instructions ?Recorded ?Confirmed ?Type atorvastatin 10 mg tablet 10 mg PO DAILY #90 tabs 06/18/24 09/25/24 Rx budesonide-formoterol HFA 160 2 inh inhalation BID 90 days #30.6 08/14/24 09/25/24 Rx mcg-4.5 mcg/actuation aerosol grams inhaler (Breyna) albuterol sulfate 90 mcg/actuation 2 inh inhalation Q6HP PRN 09/01/24 09/25/24 History aerosol inhaler (Ventolin HFA) shortness of breath or wheezing fluticasone propionate 50 2 spray intranasal DAILY 90 days 09/08/24 09/25/24 Rx mcg/actuation nasal #16 grams spray,suspension (Flonase Allergy Relief) apixaban 5 mg tablet (Eliquis) 5 mg PO BID #60 tabs 09/10/24 09/25/24 Rx valacyclovir 1 gram tablet 1,000 mg PO Q8H 7 days #21 tabs 09/24/24 09/25/24 Rx hydrocortisone 2.5 % topical cream 1 applic topical BIDP PRN skin 09/25/24 09/25/24 History irritation diltiazem HCl 120 mg 120 mg PO DAILY 30 days #30 caps 09/26/24 Rx capsule,extended release 24 hr metoprolol succinate 50 mg 50 mg PO DAILY 30 days #0 tabs 09/26/24 09/25/24 Rx tablet,extended release 24 hr New Prescriptions to Start Prescriptions: diltiazem HCl Iron Stafford Allergies Allergy/AdvReac Type Severity Reaction Status Date / Time adhesive Allergy Rash Verified 09/25/24 17:48 Discharge Plan Disposition Patient Disposition: Home, Self-Care Condition: Fair Follow up Plan Follow up with: Miki Chau PA [Physician Health Occupations Instructor, Cardiology] - 2 weeks Referral Note: THE CARDIOLOGY OFFICE IS AWARE OF YOUR NEED FOR AN APPOINTMENT. YOU SHOULD RECIEVE A CALL ON September. IF YOU DO NOT RECIEVE A CALL PLEASE CALL SATURDAY TO SCHEDULE A TWO WEEK FOLLOW UP APPOINTMENT. THANK YOU! Wander Sinclair MD [Primary Care Provider, Family Practice] - 2 weeks Referral Note: DR SINCLAIR'S OFFICE IS AWARE OF YOUR NEED FOR A HOSPITAL FOLLOW UP APPOINTMENT. YOU SHOULD RECIEVE A CALL ON September. IF YOU DO NOT RECIEVE A CALL PLEASE CALL THE OFFICE ON SATURDAY TO SCHEDULE A TWO WEEK FOLLOW UP APPOINTMENT. THANK YOU ! Prescriptions/Medication Reconciliation: New diltiazem HCl 120 mg Capsule,Extended Release 24hr 120 mg PO DAILY 30 Days Qty: 30 0RF Continued valacyclovir 1 gram tablet 1,000 mg PO Q8H 7 Days Qty: 21 0RF atorvastatin 10 mg tablet 10 mg PO DAILY Qty: 90 3RF budesonide-formoterol [Breyna] 160-4.5 mcg/actuation HFA aerosol inhaler 2 inh inhalation BID 90 Days Qty: 30.6 3RF fluticasone propionate [Flonase Allergy Relief] 50 mcg/actuation spray,suspension 2 spray intranasal DAILY 90 Days Qty: 16 2RF Rx Instructions: administer into each nostril Eliquis 5 mg tablet 5 mg PO BID Qty: 60 3RF hydrocortisone 2.5 % cream 1 applic topical BIDP PRN (Reason: skin irritation) albuterol sulfate [Ventolin HFA] 90 mcg/actuation HFA aerosol inhaler 2 inh inhalation Q6HP PRN (Reason: shortness of breath or wheezing) Changed metoprolol succinate 50 mg tablet extended release 24 hr 50 mg PO DAILY 30 Days Qty: 0 0RF Problem Reconciliation Problems Reviewed?: Yes Patient Discharge Instructions Print Language: German Providers Primary Care Provider: Wander Sinclair Admit Provider: Iron Stafford Attending Provider: Iron Stafford
[2024-09-26] MEDS: METOPROLOL SUCCINATE XL 50MG TABLET 50 MG PO (13:27)
--- NOTE | 2024-09-28 11:41 | SW/DCPLANNER ---
Spoke with patient on the phone. patient stated that she is doing good. Patient stated that she is aware of her upcoming appointments. Patient stated that she was able to get her medicine. Patient stated that she has no concerns or questions at this time. Bob Sage
== END 2024-09-26 16:19 | disposition home or self-care (01) ==
LOC: ER 13:20 → ICU 18:09
PROVIDERS: Nurse Practitioner; Admitting Provider Student in an Organized Health Care Education/Training Program; Emergency Provider Student in an Organized Health Care Education/Training Program; PCP Family Medicine; Visit Provider Student in an Organized Health Care Education/Training Program
DX: I48.20 Chronic atrial fibrillation, unspecified (principal); J44.89 Other specified chronic obstructive pulmonary disease; E66.9 Obesity, unspecified; E78.5 Hyperlipidemia, unspecified; Z68.41 Body mass index [BMI] 40.0-44.9, adult; Z91.048 Other nonmedicinal substance allergy status; Z82.49 Family history of ischemic heart disease and other diseases of the circulatory system; Z79.01 Long term (current) use of anticoagulants; Z79.51 Long term (current) use of inhaled steroids; Z79.899 Other long term (current) drug therapy
CPT/HCPCS: 96365; 96366 ×2; 96375; 96376; 36415; 71045; 71275; 80053; 81001; 83690; 83735; 83880; 84484; 85025; 85378; 85610; 85730; 93005; 99291; G0378; J1742; Q9967